=== PATIENT | female | born 1945 | race African-American/Black ===

== ENCOUNTER → 2017-02-09 | Day surgery (SDC) | payer OTHER ==
[~2017-02-09] MED LIST: ASPI325T8 PO; ATEN25TA PO; BUDE10.2 IH; CETI10TA16 PO; CLOP75TA PO; FERR-26 PO; FURO40TA4 PO; GABA-586 PO; HYDR-2762 PO; HYDROmorphone 2 MG/ML VIAL IV PRN; IV RINGERS,LACTATED 1000ML 1,000 ML IV SCH; LEVO100T5 PO; LIDOCAINE 1% PF 2 ML VIAL. ID PRN; LIDOCAINE 2% PF Vial for OR 5 ML VIAL. ONE; LOSA100T6 PO; LOSA25TA PO; MONT10TA6 PO; MORPHINE SULFATE 2 MG/ML DISP.SYRIN. IV PRN; ONDANSETRON PF 4 MG/2 ML VIAL. IV PRN; PROCHLORPERAZINE 10 MG/2 ML VIAL. IV PRN; PROPOFOL 20 ML IV ONE; SIMV40TA3 PO; fentaNYL PF VIAL 100 MCG/2 ML VIAL IV PRN
--- NOTE | 2017-02-09 10:53 | PDOC1 ---
HISTORY & PHYSICAL H&P Violet Levy [id number] 1945 02/07/2017 04:30 PM 04/23 Home [facility], [facility] OUR PATIENTS COME FIRST [address] [place] [address] Ph. [phone] Patient: Violet Levy Date of : 1945 Date: 02/07/2017 4:30 PM Visit Type: Office Visit This 72 year old female presents for Anemia and Blood in stool. History of Present Illness: 1. Anemia Additional information: Patient had low iron and low MCV. Had seen some blood in stool few months ago. Patient is on aspirin. 2. Blood in stool Additional information: Patient has seen some blood in stool few months ago. Had colonoscopy 2 yrs ago and had diverticulosis. Bowel prep was adequate. Patient is on Aspirin. INTAKE COMMENTS: Intake Comments: Nurse Note: the pt is here today due to anemia, the pt states that she did have blood in her stool for a few days, she states that it was quite a bit and it was bright red. 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 12/01/2014 Urinary tract infection, site unspecified 10/08/2015 Mild intermittent asthma without complication 01/21/2016 Benign hypertension with chronic kidney disease, stage II 11/12/2014 Chronic kidney disease, stage II (mild) 11/12/2014 Allergic conjunctivitis, bilateral 04/08/2015 Primary osteoarthritis involving multiple joints 10/08/2015 Gout 10/29/2014 Myocardial infarction, greater than 8 weeks old 12/01/2015 Osteoarthritis 07/30/2013 Arthralgia of knee, left 10/19/2015 Acute gout of right knee, unspecified cause 06/18/2015 Abnormal glucose level 09/16/2013 Bilateral primary osteoarthritis of knee 10/13/2015 Polyarthralgia 10/13/2015 Idiopathic chronic gout of multiple sites with tophus 10/13/2015 PAST MEDICAL/SURGICAL HISTORY (Detailed) Disease/disorder Onset Date Management Date Comments Anxiety Arthritis Asthma Coronary artery disease PCI with stent 07/2012 recent cardiac catheterization in July 2012 did not show any significant lesions. Hyperlipidemia Hypertension Hypothyroidism, primary DIAGNOSTICS HISTORY: Test Ordered Interpretation Result completed Stress Test 02/05/2007 EF 60%, normal LV systolic function 02/05/2007 EKG 01/09/2006 Normal 01/09/2006 PAP 12/06/2004 Normal Trichomonas 12/06/2004 Colonoscopy 01/07/2014 abnormal Imp: diverticulosis of the colon, transverse colon polyp(bx), BX: consistent with prominent fold 04/27/2014 Test Ordered Ordering Comments Modifier Stress Test 02/05/2007 Cardiac Studies EKG 01/09/2006 Cardiac Studies PAP 12/06/2004 Other Reports Colonoscopy 01/07/2014 Patient is postmenopausal. Type of menopause is natural . Medications (Active): Started Medication Directions Instruction Stopped 12/14/2010 aspirin 325 mg Tab take 1 tablet (325MG) by oral route every day 01/16/2017 ATENOLOL 25 MG TABLET TAKE 1 TABLET DAILY 01/16/2017 ATORVASTATIN 20 MG TABLET TAKE 1 TABLET BY MOUTH AT BEDTIME 01/29/2017 CETIRIZINE HCL 10 MG TABLET TAKE 1 TABLET BY MOUTH AT BEDTIME 10/10/2016 CLOPIDOGREL 75 MG TABLET TAKE 1 TABLET DAILY 06/13/2016 COLCRYS 0.6 MG TABLET TAKE 1 TABLET BY ORAL ROUTE 2 TIMES EVERY DAY 08/15/2016 Cozaar 25 mg tablet TAKE 1 TABLET DAILY 90 day pls 12/01/2015 Curcumin 95 % powder 500 mg twice a day 10/13/2016 cyanocobalamin (vit B-12) 1,000 mcg/mL injection solution inject 1 milliliter by intramuscular route 4 times every month call patient when ready 01/29/2017 ferrous sulfate 325 mg (65 mg iron) tablet take 1 tablet by ORAL route every day 09/27/2012 Flonase 50 mcg/actuation Nasal [place] spray 2 spray by intranasal route every day in each nostril 10/19/2016 GABAPENTIN 300 MG CAPSULE TAKE ONE CAPSULE BY MOUTH AT BEDTIME 01/03/2017 hydrocodone 7.5 mg-acetaminophen 325 mg tablet take 1 tablet by oral route every 6 hours as needed for pain 12/04/2016 LASIX 40 MG TABLET TAKE 1 TABLET (40MG) BY ORAL ROUTE EVERY DAY 02/05/2017 LEVOTHYROXINE 100 MCG TABLET TAKE 1 TABLET BY MOUTH EVERY DAY 12/04/2016 MONTELUKAST SOD 10 MG TABLET TAKE 1 TABLET BY MOUTH EVERY EVENING 01/29/2017 SYMBICORT 160-4.5 MCG INHALER INHALE 2 PUFFS TWICE A DAY , IN THE MORNING AND EVENING 10/29/2012 Tylenol Ex Str Arthritis Pain 500 mg tablet take 2 by Oral route in am and pm 09/21/2016 VITAMIN D3 2,000 UNIT TABLET TAKE 1 TABLET BY MOUTH EVERY DAY Allergies: Ingredient Reaction Medication Name Comment LISINOPRIL cough NO KNOWN DRUG ALLERGIES REVIEW OF SYSTEMS System Neg/Pos Details Constitutional Negative Chills, fever, malaise and weight loss. ENMT Negative Sore throat. Eyes Negative Double vision. Respiratory Negative Dyspnea and wheezing. Cardio Negative Chest pain and irregular heartbeat/palpitations. GI Positive See HPI. GI Negative See HPI. Negative Dysuria and hematuria. Endocrine Negative Cold intolerance and heat intolerance. Psych Negative Anxiety. Integumentary Negative Hives and rash. MS Negative Joint pain. Angelo/Lymph Negative Easy bleeding and easy bruising. Allergic/Immuno Negative Food allergies. Reproductive Positive The patient is post-menopausal (The menopause was natural) . VITAL SIGNS Time BP mm/Hg Pulse /min Resp /min Temp F Ht ft Ht in Ht cm Wt lb Wt kg BMI kg/ m2 BSA m2 O2 Sat% 4:28 PM 138/78 70 97.9 5.0 4.00 162.56 300.00 136.078 51.49 92 Time Measured by 4:28 PM Yojana Gaspar PHYSICAL EXAM: Exam Findings Details Constitutional Normal Well developed. Eyes Normal Conjunctiva - Right: Normal, Left: Normal. Sclera - Right: Normal, Left: Normal. Nasopharynx Normal Lips/teeth/gums - Normal. Neck Exam Normal Inspection - Normal. Thyroid gland - Normal. Respiratory Normal Inspection - Normal. Auscultation - Normal. Cardiovascular Normal Regular rate and rhythm. No murmurs, gallops, or rubs. Vascular Normal Pulses - Carotids: Normal, Femoral: Normal, Dorsalis pedis: Normal. Abdomen Normal Inspection - Normal. Anterior palpation - No guarding. No abdominal tenderness. No hepatic enlargement. No splenic enlargement. No hernia. No Ascites. Skin Normal Inspection - Normal. Extremity Normal No edema. Psychiatric Normal Oriented to time, place, person, and situation. Appropriate mood and effect. Assessment/Plan # Detail Type Description 1. Assessment Iron deficiency anemia due to chronic blood loss (D50.0). Patient Plan schedule EGD at [facility]. Plan Orders Further diagnostic evaluations ordered today include(s) EGD to be performed today. She is to schedule a follow-up visit with Sissy Oconnor MD upon completion of work-up Electronically signed by: Sissy Oconnor MD 02/07/2017 04:44 PM Document generated by: Sissy Oconnor 02/07/2017 04:44 PM Reynaldo Sadler MD, [facility]; Karan Vásquez MD Internal Medicine; Fernando Solitario MD, Internal Medicine; Michael Oconnor MD Internal Medicine; Sissy Oconnor MD, Gastroenterology; Kraig Anderson MD, Rheumatology, S. Eric Morrell, Physical Medicine/Rehab J. Chacho HAYN ------ 02/09/17 Patient seen and examined. No change in H&P. SISSY OCONNOR MD Feb 09, 2017 10:53
[2017-02-09 12:52] VITALS: BP 134/68
== END | disposition home or self-care (01) ==
LOC: ENDOS 10:10
PROVIDERS: ATTEND Internal Medicine Gastroenterology
DX: D50.0 Iron deficiency anemia secondary to blood loss (chronic) (principal); I25.10 Atherosclerotic heart disease of native coronary artery without angina pectoris; I10 Essential (primary) hypertension; J45.909 Unspecified asthma, uncomplicated; I12.9 Hypertensive chronic kidney disease with stage 1 through stage 4 chronic kidney disease, or unspecified chronic kidney disease; N18.9 Chronic kidney disease, unspecified; E03.9 Hypothyroidism, unspecified; F41.9 Anxiety disorder, unspecified; F17.200 Nicotine dependence, unspecified, uncomplicated; Z98.890 Other specified postprocedural states; Z98.51 Tubal ligation status; Z87.39 Personal history of other diseases of the musculoskeletal system and connective tissue; Z87.440 Personal history of urinary (tract) infections
CPT/HCPCS: 43235; J2704; J2001

== ENCOUNTER → 2017-08-17 | Outpatient (CLI) | payer OTHER | END | disposition home or self-care (01) | LOC: KCIC DEXA 09:28 | DX: Z12.31 Encounter for screening mammogram for malignant neoplasm of breast (principal); M81.0 Age-related osteoporosis without current pathological fracture; M85.80 Other specified disorders of bone density and structure, unspecified site; Z78.0 Asymptomatic menopausal state | CPT/HCPCS: 77067; 77080 ==

== ENCOUNTER 2017-09-14 15:12 | Emergency (ER) | payer OTHER ==
[2017-09-14 15:56] LABS: BILIRUBIN,URINE SMALL (NEG); CLARITY,URINE CLOUDY; COLOR,URINE AMBER; GLUCOSE,URINE NEGATIVE (NEG); NITRITE,URINE NEGATIVE (NEG); PROTEIN,URINE NEGATIVE (NEG-TRACE)
[2017-09-14 16:23] LABS: BACTERIA,URINE MOD /HPF (0-FEW); HYALINE CASTS, URINE MODERATE /HPF; SQUAMOUS EPITHELIAL CELL,UR MANY /LPF
== END 2017-09-14 18:27 | disposition home or self-care (01) ==
LOC: ER 18:27
DX: S42.401A Unspecified fracture of lower end of right humerus, initial encounter for closed fracture (principal); N39.0 Urinary tract infection, site not specified; W06.XXXA Fall from bed, initial encounter; Y93.89 Activity, other specified; Y92.89 Other specified places as the place of occurrence of the external cause; Y99.8 Other external cause status
CPT/HCPCS: 73080; 73090; 73110; 81001; 99285-25

== ENCOUNTER → 2017-09-14 | Outpatient (CLI) | payer OTHER | END | disposition home or self-care (01) | LOC: ECHO 14:17 | DX: I31.3 Pericardial effusion (noninflammatory) (principal); R53.1 Weakness; R53.83 Other fatigue | CPT/HCPCS: 93306 ==

== ENCOUNTER → 2018-10-15 | Outpatient (CLI) | payer OTHER ==
[2018-01-29 14:43] VITALS: BP 120/57
[~2018-10-15] MED LIST changes: +ACET500T68 PO; +ATOR20TA58 PO; +CHOL10003 PO; +COLC0.6T34 PO; -FERR-26 PO; +FERR325T14 PO; -GABA-586 PO; +GABA300C18 PO; -HYDR-2762 PO; +HYDR-2765 PO; +HYDR-3164 PO; -HYDROmorphone 2 MG/ML VIAL IV PRN; -IV RINGERS,LACTATED 1000ML 1,000 ML IV SCH; +LEVO125T5 PO; -LIDOCAINE 1% PF 2 ML VIAL. ID PRN; -LIDOCAINE 2% PF Vial for OR 5 ML VIAL. ONE; +LOSA100T14 PO; -LOSA100T6 PO; +MONT10TA49 PO; -MONT10TA6 PO; -MORPHINE SULFATE 2 MG/ML DISP.SYRIN. IV PRN; +NITR100C62 PO; -ONDANSETRON PF 4 MG/2 ML VIAL. IV PRN; -PROCHLORPERAZINE 10 MG/2 ML VIAL. IV PRN; -PROPOFOL 20 ML IV ONE; -fentaNYL PF VIAL 100 MCG/2 ML VIAL IV PRN
--- NOTE | 2018-10-15 11:52 | CARD ---
MR#: [id number] Date of Study: 10/15/2018 Ordering Physician: SHASHANK UNGER, Referring Physician: SHASHANK UNGER Tech: Starr Soria NABILA APPROVED REPORT EXAM: Two-dimensional and M-mode echocardiogram with Doppler and color Doppler. Other Information Quality : Technically LimitedHR: 85bpm Rhythm : NSRTechnically limited study due to body habitus. INDICATION CAD 2D DIMENSIONS RVDd3.4 (2.9-3.5cm)Left Atrium(2D)3.1 (1.6-4.0cm) IVSd1.2 (0.7-1.1cm)Aortic Root(2D)3.1 (2.0-3.7cm) LVDd5.1 (3.9-5.9cm)LVOT Diameter2.2 (1.8-2.4cm) PWd1.0 (0.7-1.1cm)LVDs3.5 (2.5-4.0cm) FS (%) 30.9 %SV73.1 ml Aortic Valve AoV Peak Lucius.167.8cm/sAoV VTI25.9cm AO Peak GR.11.3mmHgLVOT Peak Lucius.117.9cm/s AO Mean GR.5mmHgAVA (VMAX)2.67cm2 NANCI (VTI)2.70cm2 Mitral Valve MV E Sxnkwshv93.0cm/sMV E Peak Gr.6mmHg MV DECEL [id number] A Ynadrixk175.8cm/s MV E Mean Gr.3mmHgE/A Ratio0.5 LEFT VENTRICLE The left ventricle is normal size. Proximal septal thickening is noted. Left ventricle systolic funct ion is mildly decreased. The Ejection Fraction is estimated at 50%. There is severe hypokinesis in th e apical septal wall. Transmitral Doppler flow pattern is Grade I-abnormal relaxation pattern. RIGHT VENTRICLE The right ventricle is normal size. There is normal right ventricular wall thickness. The right ventr icular systolic function is normal. ATRIA The left atrium size is normal. The right atrium size is normal. The interatrial septum is intact wit h no evidence for an atrial septal defect or patent foramen ovale as noted on 2-D or Doppler imaging. AORTIC VALVE The aortic valve is trileaflet. The left coronary cusp is calcified. Doppler and Color Flow revealed no significant aortic regurgitation. There is no significant aortic valvular stenosis. MITRAL VALVE The mitral valve is normal in structure and function. There is no evidence of mitral valve prolapse. There is no mitral valve stenosis. Doppler and Color Flow revealed trace mitral valve regurgitation. TRICUSPID VALVE The tricuspid valve is normal in structure and function. Doppler and Color Flow revealed trace tricus pid valve regurgitation. There is no tricuspid valve prolapse or vegetation. There is no tricuspid va lve stenosis. PULMONIC VALVE The pulmonic valve is not well visualized. GREAT VESSELS The aortic root is normal in size. The ascending aorta is normal in size. The IVC is normal in size a nd collapses >50% with inspiration. PERICARDIAL EFFUSION There is no evidence of significant pericardial effusion. Critical Notification Critical Value: No <Conclusion> The left ventricle is normal size. Left ventricle systolic function is mildly decreased. The Ejection Fraction is estimated at 50%. There is severe hypokinesis in the apical septal wall. There is no significant aortic valvular stenosis. Doppler and Color Flow revealed no significant aortic regurgitation. Doppler and Color Flow revealed trace mitral valve regurgitation. Doppler and Color Flow revealed trace tricuspid valve regurgitation. Signed by : Kong Torres MD Electronically Approved : 10/15/2018 11:52:15
== END | disposition home or self-care (01) ==
LOC: ECHO 10:40
PROVIDERS: ATTEND Internal Medicine Cardiovascular Disease
DX: I25.10 Atherosclerotic heart disease of native coronary artery without angina pectoris (principal); I70.0 Atherosclerosis of aorta
CPT/HCPCS: 93306

== ENCOUNTER → 2019-04-01 | Outpatient (CLI) | payer OTHER ==
[2018-01-29 14:43] VITALS: BP 120/57
[~2019-04-01] MED LIST changes: +SIMV40TA18 PO; -SIMV40TA3 PO
--- NOTE | 2019-04-02 15:04 | RAD ---
3 views of the bilateral hands without comparison for polyarthralgia. FINDINGS: On the left, there are arthritic changes seen in the proximal and distal interphalangeal joint of the first and second digits and the distal phalangeal joint of third digit, with some punched-out periarticular lesions and no significant associated osteopenia. Lateral projection suggests some early pencil in cup deformity. There is relative sparing of the metacarpophalangeal joints, though there is some involvement in the first and second MCPs. Some degenerative changes are seen amongst the intercarpal and carpometacarpal joint. On the right, findings are somewhat similar but to a notably lesser degree with predominant involvement in the first metacarpal phalangeal and interphalangeal joint as well as the second metacarpal phalangeal joint. Once again, there is no significant just articular osteopenia. No fracture or acute osseous abnormality is seen in any distribution. IMPRESSION: 1. Polyarticular arthritis, with an imaging appearance most suggestive of an inflammatory etiology such as psoriatic disease. Erosive osteoarthritis is also a consideration, as is atypical rheumatoid arthritis or other inflammatory process. Electronically signed by: Emmanuel Robertson MD (04/02/2019 3:01 PM) [facility]
== END | disposition home or self-care (01) ==
LOC: RAD 11:43
PROVIDERS: ATTEND Internal Medicine Rheumatology
DX: M19.042 Primary osteoarthritis, left hand (principal); M19.041 Primary osteoarthritis, right hand
CPT/HCPCS: 73130

== ENCOUNTER → 2020-02-26 | Outpatient (CLI) | payer OTHER ==
[2018-01-29 14:43] VITALS: BP 120/57
--- NOTE | 2020-02-26 10:27 | RAD ---
EXAM: Carotid Doppler sonogram. HISTORY: Atherosclerosis. Carotid stenosis. TECHNIQUE: Matute scale and color Doppler sonographic evaluation of the neck with spectral waveform analysis was performed and static images are submitted for review. FINDINGS: The peak systolic velocity within the right common carotid artery is 70 cm/sec. The peak systolic velocity within the right internal carotid artery is 69 cm/sec and the end diastolic velocity within the right internal carotid artery is 30 cm/sec. The right ICA/CCA ratio is 1.0. The peak systolic velocity within the left common carotid artery is 84 cm/sec. The peak systolic velocity within the left internal carotid artery is 93 cm/sec and the end diastolic velocity within the left internal carotid artery is 31 cm/sec. The left ICA/CCA ratio is 1.1. There is normal antegrade flow within both vertebral arteries. IMPRESSION: No Doppler evidence of greater than 50 percent stenosis involving the internal carotid arteries. PQRS Compliance Statement - Stenosis calculations for CT, MR and conventional angiography are based upon measurement of the distal ICA diameter in accordance with the NASCET methodology. Stenosis calculations for carotid ultrasound studies are derived from validated velocity criteria which are known to correlate with the NASCET methodology. Electronically signed by: Shaista Zavala MD (02/26/2020 10:24 AM) [id number]
--- NOTE | 2020-02-26 16:06 | CARD ---
MR#: [id number] Date of Study: 02/26/2020 Ordering Physician: SHASHANK UNGER, Referring Physician: SHASHANK UNGER Tech: Shanae Gupta RDCS APPROVED REPORT EXAM: Two-dimensional and M-mode echocardiogram with Doppler and color Doppler. Other Information Quality : Technically Limited Technically limited study due to obesity and lung disease INDICATION Cardiac Disease: CAD 2D DIMENSIONS Left Atrium(2D)4.2 (1.6-4.0cm)IVSd0.9 (0.7-1.1cm) Aortic Root(2D)2.5 (2.0-3.7cm)LVDd4.0 (3.9-5.9cm) LVOT Diameter2.0 (1.8-2.4cm)PWd1.0 (0.7-1.1cm) LVDs2.2 (2.5-4.0cm)FS (%) 30.0 % SV52.8 ml Aortic Valve AoV Peak Lucius.105.7cm/sAoV VTI21.4cm AO Peak GR.4.5mmHgLVOT Peak Lucius.62.9cm/s AO Mean GR.3mmHgAVA (VMAX)1.89cm2 NANCI (VTI)2.20cm2 Mitral Valve MV E Kypbdajf53.3cm/sMV DECEL [id number] MV A Ikrukrui581.8cm/sE/A Ratio0.6 LEFT VENTRICLE The left ventricle is normal size. There is normal left ventricular wall thickness. The Ejection Frac tion is 40-45%. There is akinesis in the apical septal and apex. The left ventricular apex is also mi ldly aneurysmal. Transmitral Doppler flow pattern is Grade I-abnormal relaxation pattern. RIGHT VENTRICLE The right ventricle is normal size. The right ventricular systolic function is normal. ATRIA The left atrium is mildly dilated. The right atrium size is normal. The interatrial septum is intact with no evidence for an atrial septal defect or patent foramen ovale as noted on 2-D or Doppler imagi ng. AORTIC VALVE The aortic valve is calcified but opens well. Doppler and Color Flow revealed no significant aortic r egurgitation. There is no significant aortic valvular stenosis. MITRAL VALVE The mitral valve is calcified but opens well. There is no evidence of mitral valve prolapse. There is no mitral valve stenosis. Doppler and Color Flow revealed trace mitral valve regurgitation. TRICUSPID VALVE The tricuspid valve is normal in structure and function. Doppler and Color Flow revealed no tricuspid valve regurgitation noted. There is no tricuspid valve stenosis. PULMONIC VALVE The pulmonic valve is not well visualized. Doppler and Color Flow revealed mild pulmonic valvular reg urgitation. There is no pulmonic valvular stenosis. GREAT VESSELS The aortic root is normal in size. The ascending aorta is not well seen. The IVC was not visualized. PERICARDIAL EFFUSION There is no evidence of significant pericardial effusion. Critical Notification Critical Value: No <Conclusion> The left ventricle is normal size on a technically difficult study. The Ejection Fraction is 40-45%. There is akinesis in the apical septal and apex. The left ventricular apex is also mildly aneurysmal . Doppler and Color Flow revealed no significant aortic regurgitation. There is no significant aortic valvular stenosis. Doppler and Color Flow revealed trace mitral valve regurgitation. Doppler and Color Flow revealed no tricuspid valve regurgitation noted. Doppler and Color Flow revealed mild pulmonic valvular regurgitation. Signed by : Kong Torres MD Electronically Approved : 02/26/2020 16:06:11
== END ==
LOC: ECHO 08:33
PROVIDERS: ATTEND Internal Medicine Cardiovascular Disease
DX: I08.8 Other rheumatic multiple valve diseases (principal); I65.23 Occlusion and stenosis of bilateral carotid arteries
CPT/HCPCS: 93306; 93880

== ENCOUNTER → 2020-10-18 | Outpatient (CLI) | payer OTHER ==
[2020-07-12 11:00] VITALS: BP 110/68
[~2020-10-18] MED LIST changes: +CYCL5TAB PO; +DICL100G24 TP; +HEPA50003 SQ; +HYDR200T5 PO; +LEVO88TA4 PO; +NAPR-695 PO
--- NOTE | 2020-10-18 13:45 | KCIC ---
EXAM: Bilateral knees, standing view. HISTORY: Pain. COMPARISON: None. FINDINGS: A standing view both knees is obtained. There is severe bilateral medial compartment joint space narrowing with subchondral sclerosis, subchondral cyst formation, spurring and bony remodeling. There is mild bilateral lateral compartment spurring. There is bilateral genu varus. IMPRESSION: Severe medial compartment and mild lateral compartment osteoarthritis of both knees with medial compartment bony remodeling and genu varus. Electronically signed by: Shaista Zavala MD (10/18/2020 1:43 PM) [id number]
== END ==
LOC: KCIC 13:07
PROVIDERS: ATTEND Physical Medicine & Rehabilitation
DX: M17.0 Bilateral primary osteoarthritis of knee (principal); M21.162 Varus deformity, not elsewhere classified, left knee; M21.161 Varus deformity, not elsewhere classified, right knee; M25.862 Other specified joint disorders, left knee; M25.861 Other specified joint disorders, right knee; M76.892 Other specified enthesopathies of left lower limb, excluding foot; M76.891 Other specified enthesopathies of right lower limb, excluding foot
CPT/HCPCS: 73565

== ENCOUNTER → 2021-02-22 | Outpatient (CLI) | payer OTHER ==
[2020-12-03 11:00] VITALS: BP 104/59
[~2021-02-22] MED LIST changes: +ACET325T21 PO; +ASPI-630 PO; +PANT40TA77 PO; +PRED20TA PO; +SENN-189 PO
--- NOTE | 2021-02-22 13:07 | CARD ---
MR#: [id number] Date of Study: 02/22/2021 Ordering Physician: SHASHANK UNGER, Referring Physician: SHASHANK UNGER Tech: Radha Shelby NABILA APPROVED REPORT EXAM: Two-dimensional and M-mode echocardiogram with Doppler and color Doppler. Other Information Quality : Technically LimitedHR: 100bpm Rhythm : NSR INDICATION Cardiac Disease: CAD Chest Pain RISK FACTORS Hypertension Obesity Hyperlipidemia Diabetes 2D DIMENSIONS Left Atrium(2D)3.4 (1.6-4.0cm)IVSd1.1 (0.7-1.1cm) Aortic Root(2D)3.1 (2.0-3.7cm)LVDd4.8 (3.9-5.9cm) LVOT Diameter2.5 (1.8-2.4cm)PWd1.0 (0.7-1.1cm) IVSs1.6 (0.8-1.2cm)LVDs3.1 (2.5-4.0cm) FS (%) 35.8 %PWs1.6 (0.8-1.2cm) SV69.0 mlLVEF(%)65.2 (>50%) Aortic Valve AoV Peak Lucius.144.2cm/Abdi Peak GR.8.3mmHg Pulmonary Valve PV Peak Bvymlajh880.0cm/sPV Peak Grad.5mmHg LEFT VENTRICLE The left ventricle is normal size. There is borderline concentric left ventricular hypertrophy. Apica l wall appears to be akinetic. The ejection fraction is estimated at 40-45%. Transmitral Doppler flow pattern is Grade I-abnormal relaxation pattern. RIGHT VENTRICLE The right ventricle is normal size. There is normal right ventricular wall thickness. The right ventr icular systolic function is normal. ATRIA The left atrium size is normal. The right atrium size is normal. The interatrial septum is intact wit h no evidence for an atrial septal defect or patent foramen ovale as noted on 2-D or Doppler imaging. AORTIC VALVE The aortic valve is normal in structure and function. Doppler and Color Flow revealed no significant aortic regurgitation. There is no significant aortic valvular stenosis. MITRAL VALVE The mitral valve is normal in structure and function. There is no evidence of mitral valve prolapse. There is no mitral valve stenosis. Doppler and Color Flow revealed no mitral valve regurgitation note d. TRICUSPID VALVE The tricuspid valve is normal in structure and function. Doppler and Color Flow revealed no tricuspid valve regurgitation noted. There is no tricuspid valve stenosis. GREAT VESSELS The aortic root is normal in size. The ascending aorta is normal in size. Not visualized. PERICARDIAL EFFUSION There is no evidence of significant pericardial effusion. Critical Notification Critical Value: No <Conclusion> Technically very difficult study. Apical wall appears to be akinetic. The ejection fraction is estimated at 40-45%. There is no evidence of significant pericardial effusion. Signed by : Shashank Unger, Electronically Approved : 02/22/2021 13:06:34
== END ==
LOC: ECHO 10:30
PROVIDERS: ATTEND Internal Medicine Cardiovascular Disease
DX: I25.10 Atherosclerotic heart disease of native coronary artery without angina pectoris (principal); R07.9 Chest pain, unspecified
CPT/HCPCS: 93306

== ENCOUNTER → 2021-04-06 | Outpatient (CLI) | payer OTHER ==
[2020-12-03 11:00] VITALS: BP 104/59
--- NOTE | 2021-04-06 11:32 | RAD ---
EXAMINATION: CT LEFT LOWER EXTREMITY WITHOUT IV CONTRAST CLINICAL HISTORY: Left knee osteoarthritis, preoperative planning TECHNIQUE: Noncontrast serial axial images obtained through the bilateral hips, knees, and ankles wit h coronal reconstructions through the bilateral knees and sagittal reconstructions through the left k nee for preoperative planning. CT Dose Reduction Employed: One or more of the following individualized dose reduction techniques wer e utilized for this examination: 1. Automated exposure control 2. Adjustment of the mA and/or kV ac cording to patient size 3. Use of iterative reconstruction technique. COMPARISON: None FINDINGS: Advanced tricompartmental degenerative changes bilateral knees, greatest in the medial compartments. No acute fracture. Bilateral small joint effusions with calcified joint bodies. Bilateral hips within normal limits. Ppfkovmp-[id number] degenerative changes bilateral ankles, incomp letely evaluated. No acute fracture. IMPRESSION: Advanced tricompartmental degenerative changes left knee. No acute fracture or unexpected findings. Additional degenerative changes as described. Electronically signed by: Faisal Nieves DO (04/06/2021 11:30 AM) [place]
== END ==
LOC: CT 08:51
PROVIDERS: ATTEND Orthopaedic Surgery
DX: M17.0 Bilateral primary osteoarthritis of knee (principal); M25.462 Effusion, left knee
CPT/HCPCS: 73700

== ENCOUNTER → 2021-05-23 | Outpatient (CLI) | payer OTHER ==
[2020-12-03 11:00] VITALS: BP 104/59
[2021-05-23 09:41] LABS: ALBUMIN 3.7 g/dL (3.4-5.0); CALCIUM 8.4 mg/dL (8.5-10.1); CREATININE 2.4 mg/dL (0.6-1.0); GFR 23.7
[2021-05-23 10:25] LABS: BASO # 0.1 x10^3/uL (0.0-0.2); BASO % 1 % (0-3); EOS # 0.2 x10^3/uL (0.0-0.7); EOS % 4 % (0-3); HEMATOCRIT 41.3 % (36.0-47.0); HEMOGLOBIN 13.3 g/dL (12.0-15.5); LYMPH # 2.6 x10^3/uL (1.0-4.8); LYMPH % 38 % (24-48); MEAN CORPUSCULAR HEMOGLOBIN 29 pg (25-35); MEAN CORPUSCULAR HGB CONC 32 g/dL (31-37); MEAN CORPUSCULAR VOLUME 90 fL (79-100); MONO # 0.3 x10^3/uL (0.0-1.1); MONO % 5 % (0-9); NEUT # 3.6 x10^3/uL (1.8-7.7); NEUT % 53 % (31-73); PLATELET COUNT 148 x10^3/uL (140-400); RED BLOOD COUNT 4.59 x10^6/uL (3.50-5.40); RED CELL DISTRIBUTION WIDTH 16.6 % (11.5-14.5); WHITE BLOOD COUNT 6.8 x10^3/uL (4.0-11.0)
[2021-05-23 10:46] LABS: PROTHROMBIN TIME PATIENT 12.2 SEC (11.7-14.0)
--- NOTE | 2021-05-23 13:04 | EKG ---
[facility] [address] [place] [address] Test Date: 2021-05-23 Test Time: 12:27:22 Pat Name: JON HERRERA Department: Room: Gender: F Insulation Cupola Charger: KELSY : 1945 Requested By: SULLY LÓPEZ Order Number: [id number] Reading MD: Kong Torres Measurements Intervals Alfred Rate: 62 P: 47 VA: 182 QRS: -48 QRSD: 122 T: 0 QT: 480 QTc: 490 Interpretive Statements SINUS RHYTHM LEFT ATRIAL ABNORMALITY ABNORMAL LEFT AXIS DEVIATION NON SPECIFIC ST-T WAVE CHANGES BORDERLINE INFERIOR Q WAVE Electronically Signed On 05-24-2021 9:12:13 [employer] PROFESSOR by Kong Torres
[2021-05-24 03:09] LABS: HEMOGLOBIN A1C 6.1 % (4.8-5.6)
== END ==
LOC: SURGPAT 12:33
PROVIDERS: ATTEND Orthopaedic Surgery
DX: Z01.818 Encounter for other preprocedural examination (principal); R94.31 Abnormal electrocardiogram [ECG] [EKG]; I10 Essential (primary) hypertension; M17.12 Unilateral primary osteoarthritis, left knee
CPT/HCPCS: 36415; 80048; 82040; 82306; 83036; 85025; 85610; 85651; 85730; 87641; 93005

== ENCOUNTER → 2021-06-01 | Outpatient (CLI) | payer OTHER ==
[2020-12-03 11:00] VITALS: BP 104/59
--- NOTE | 2021-06-01 09:28 | RAD ---
EXAM: Renal sonogram. HISTORY: Chronic renal disease. TECHNIQUE: Sonographic imaging of the kidneys and bladder was performed. COMPARISON: None. FINDINGS: The exam is limited due to patient body habitus. The kidneys are not well seen. The kidneys are normal in size. There are multiple simple appearing right renal cysts, the largest of which maureen ures 3.4 cm. There is no hydronephrosis. The bladder is unremarkable. IMPRESSION: 1. Multiple simple appearing right renal cysts. Follow-up is not routinely performed for simple cysts . 2. Limited exam due to body habitus. Electronically signed by: Shaista Zavala MD (06/01/2021 9:26 AM) [id number]
== END ==
LOC: US 08:39
PROVIDERS: ATTEND Internal Medicine
DX: N28.1 Cyst of kidney, acquired (principal); N18.4 Chronic kidney disease, stage 4 (severe)
CPT/HCPCS: 76770

== ENCOUNTER → 2021-07-22 | Outpatient (CLI) | payer OTHER ==
[2020-12-03 11:00] VITALS: BP 104/59
[~2021-07-22] MED LIST changes: +LEVO175T5 PO; +MULT1TAB92 PO
[2021-07-22 13:56] LABS: BASO % 1 % (0-3); EOS # 0.2 x10^3/uL (0.0-0.7); EOS % 3 % (0-3); HEMATOCRIT 37.3 % (36.0-47.0); LYMPH # 1.2 x10^3/uL (1.0-4.8); LYMPH % 16 % (24-48); MEAN CORPUSCULAR HEMOGLOBIN 30 pg (25-35); MEAN CORPUSCULAR HGB CONC 32 g/dL (31-37); MEAN CORPUSCULAR VOLUME 95 fL (79-100); MONO # 0.5 x10^3/uL (0.0-1.1); MONO % 7 % (0-9); NEUT # 5.3 x10^3/uL (1.8-7.7); NEUT % 73 % (31-73); PLATELET COUNT 204 x10^3/uL (140-400); RED BLOOD COUNT 3.94 x10^6/uL (3.50-5.40); WHITE BLOOD COUNT 7.2 x10^3/uL (4.0-11.0)
== END ==
LOC: SURGPAT 13:16
PROVIDERS: ATTEND Orthopaedic Surgery
DX: Z01.818 Encounter for other preprocedural examination (principal); M17.0 Bilateral primary osteoarthritis of knee
CPT/HCPCS: 36415; 82306; 85025; 85610; 85651; 85730; 87641

== ENCOUNTER 2021-07-27 05:54 | Observation (INO) | payer OTHER ==
[2021-07-22 13:50] VITALS: BP 172/72
[2021-07-27] VITALS (10 sets, daily range): BP systolic 110–168; BP diastolic 57–85
[~2021-07-27] VITALS: Ht 160 cm; Wt 90.7 kg
[~2021-07-27 05:54] MED LIST changes: -LEVO175T5 PO; -MULT1TAB92 PO
[2021-07-27] MEDS ORDERED: PROCHLORPERAZINE 10 MG/2 ML VIAL. IVP PRN (06:00)
[2021-07-27] MEDS ORDERED: ACETAMINOPHEN 500 MG TABLET PO PRN (06:00)
[2021-07-27] MEDS ORDERED: MORPHINE SULFATE 2 MG/ML INJ. IVP PRN ×2 (06:00→09:30)
[2021-07-27] MEDS ORDERED: TRANEXAMIC ACID 1,000 MG in IV NS 50ML -- 1ST BAG INJ ONE (06:00)
[2021-07-27] MEDS ORDERED: GABAPENTIN 300 MG CAPSULE. PO PRN (06:00)
[2021-07-27] MEDS ORDERED: fentaNYL PF VIAL 100 MCG/2 ML VIAL IVP PRN ×2 (06:00→09:30)
[2021-07-27] MEDS ORDERED: TV=62ml MORPHINE 5 MG, KETOROLAC 30 MG, ROPIV, EPI INT ART ONE (06:00)
[2021-07-27] MEDS ORDERED: HYDROmorphone 2 MG/ML INJ. IVP PRN (06:00)
[2021-07-27] MEDS ORDERED: IV RINGERS,LACTATED 1000ML 1,000 ML IV SCH (06:00)
[2021-07-27] MEDS ORDERED: LEVO175T5 PO (06:45)
[2021-07-27] MEDS ORDERED: COLC0.6T34 PO (06:46)
[2021-07-27] MEDS ORDERED: DEXAMETHASONE SOD PHOS 4 MG/ML VIAL ONE (06:50)
[2021-07-27] MEDS ORDERED: fentaNYL PF VIAL 100 MCG/2 ML VIAL ONE ×2 (06:50→09:49)
[2021-07-27] MEDS ORDERED: NEOSTIGMINE METHYLSULFATE 5 MG/5 ML SYRINGE. ONE (06:50)
[2021-07-27] MEDS ORDERED: PROPOFOL 10 MG/ML (20ML) VIAL. IV ONE (06:50)
[2021-07-27] MEDS ORDERED: ROCURONIUM 50 MG/5 ML VIAL. ONE (06:50)
[2021-07-27] MEDS ORDERED: LIDOCAINE 2% PF 5 ML VIAL. ONE (06:50)
[2021-07-27] MEDS ORDERED: SUCCINYLCHOLINE 200 MG/10 ML VIAL. ONE (06:50)
[2021-07-27] MEDS ORDERED: ONDANSETRON PF 4 MG/2 ML VIAL. ONE (06:50)
[2021-07-27] MEDS ORDERED: MIDAZOLAM HCL/PF 2 MG/2 ML VIAL. ONE (06:51)
[2021-07-27] MEDS ORDERED: GLYCOPYRROLATE 1 MG/5 ML VIAL. ONE (06:51)
[2021-07-27] MEDS ORDERED: TRANEXAMIC ACID in NS IVPB 100 ML ONE (06:57)
[2021-07-27] MEDS: CETIRIZINE HCL 10 MG TABLET. PO SCH (07:00)
[2021-07-27] MEDS ORDERED: DEXMEDETOMIDINE 200 MCG/2 ML VIAL. ONE (07:14)
[2021-07-27] MEDS ORDERED: TRANEXAMIC ACID 1,000 MG in IV NS 50ML -- 2ND BAG INJ ONE (08:00)
--- NOTE | 2021-07-27 09:16 | PDOC4 ---
OPERATIVE NOTE Date: Date: Jul 27, 2021 Pre-Op Diagnosis: Degenerative joint disease left knee Post-Op Diagnosis: Same Procedure Performed: Left total knee arthroplasty Surgeon: Milvia Anesthesia Type: General Blood Loss: 75 cc Specimans Obtained: Bone and soft tissue left knee Findings: Conformers medial 6 tibial insert lateral AT tibial insert 32 patella Complications: None SULLY LÓPEZ Jr. DO Jul 27, 2021 09:16
--- NOTE | 2021-07-27 09:21 | PDOC4 ---
Operative Note Operative Note Standard dictation for conformance left total knee arthroplasty medial 6 tibial insert lateral 8 tibial insert 32 patella SULLY LÓPEZ Jr. DO Jul 27, 2021 09:21
[2021-07-27] MEDS ORDERED: 0.9 % SODIUM CHLORIDE 10 ML DISP.SYRIN. IV PRN (09:30)
[2021-07-27] MEDS ORDERED: diphenhydrAMINE 50 MG/ML VIAL IVP PRN (09:30)
[2021-07-27] MEDS ORDERED: DEXTROSE 50% 25 GM / 50ML DISP.SYRIN. IV PRN (09:30)
[2021-07-27] MEDS ORDERED: IV DEXTROSE 5% 250 ML BAG. IV PRN (09:30)
[2021-07-27] MEDS ORDERED: METOCLOPRAMIDE HCL 10 MG/2 ML VIAL. IVP PRN (09:30)
[2021-07-27] MEDS ORDERED: PROCHLORPERAZINE 5 MG TABLET. PO PRN (09:30)
[2021-07-27] MEDS ORDERED: CALCIUM CARBONATE 500 MG TAB.CHEW PO PRN (09:30)
[2021-07-27] MEDS ORDERED: ZOLPIDEM 5 MG TABLET. PO PRN (09:30)
[2021-07-27] MEDS: IV NORMAL SALINE 1000ML BAG 1,000 ML IV SCH (09:54)
[2021-07-27] MEDS: fentaNYL PF VIAL 100 MCG/2 ML VIAL IVP PRN ×2 (09:54→10:05)
--- NOTE | 2021-07-27 10:55 | RAD ---
EXAMINATION: XR KNEE_LT 1-2 VIEWS CLINICAL HISTORY: Postoperative evaluation status post left total knee arthroplasty. TECHNIQUE: XR KNEE_LT 1-2 VIEWS Number of Images/Views: 2 COMPARISON: 01/17/2021 FINDINGS: Status post interval left total knee arthroplasty with patellar resurfacing. Prostheses in satisfacto ry alignment with no evidence of acute hardware complication. No acute fracture. Expected postsurgica l changes in the surrounding soft tissues including mild soft tissue and intra-articular air. IMPRESSION: Normal postoperative findings status post interval left total knee arthroplasty. Electronically signed by: Faisal Nieves DO (07/27/2021 10:53 AM) [id number]
[2021-07-27] MEDS: oxyCODONE IR 5 MG TABLET PO PRN ×2 (11:13→16:47)
[2021-07-27] MEDS: ONDANSETRON PF 4 MG/2 ML VIAL. IVP SCH ×3 (12:00→23:24)
[2021-07-27] MEDS: ONDANSETRON ODT 4 MG TAB.RAPDIS. PO SCH ×3 (12:00→23:25)
--- NOTE | 2021-07-27 14:46 | OP ---
DATE OF SURGERY: 07/27/2021 PREOPERATIVE DIAGNOSIS: Severe degenerative joint disease, left knee. POSTOPERATIVE DIAGNOSIS: Severe degenerative joint disease, left knee. PROCEDURE: Left total knee arthroplasty. SURGEON: Mandeep Steel Jr, DO PRODUCTION CONTROL PEGBOARD CLERK: Mike Galvez. ESTIMATED BLOOD LOSS: 75 mL. COMPLICATIONS: None. ANESTHESIA: Spinal with IV sedation. COMPONENTS: ConforMIS left total knee replacement with a lateral A tibial insert and a medial 6 tibial insert and a 32 patella. DESCRIPTION OF PROCEDURE: The patient was taken to the operative suite, given a spinal anesthetic. Left lower extremity was then prepped and draped in a sterile fashion. Incision was made through skin and subcutaneous tissues down to the extensor mechanism. Superficial bleeding was coagulated using a Bovie knife. After that, the medial parapatellar incision was made. Patella was everted. There were severe changes noted in the patellofemoral compartment. Therefore, the size of this patella was measured. This was cut in the appropriate fashion and then a 32 was noted to be the most appropriate size for the patella; therefore, the guide was placed and the drill holes were made through the guide. This was protected as the knee was taken into a flexed position. There were noted to be severe changes to the medial compartment, moderate changes to the lateral compartment. In any manner, the medial and lateral meniscal remnants were removed as well as the ACL, PCL remained intact and the F1 guide was then placed on the femur and drilled. Chondral surface was removed. The appropriate sites and then the F2 guide was placed, held in appropriate position. The drill pins were placed on the distal femur and then they were also on the anterior femur to hold this into position. The distal pins were then removed. The remainder of the guide was noted to be intact and in good position. Following this, the distal cut was made. This was noted to be a good flush cut. This was all removed and the next guide was then placed through using the pin holes distally. This was flushed on the femur with proper rotation and orientation noted. Therefore, this was pinned in appropriate position. The anterior, posterior and one of the chamfer cuts were made as well as the plugs, those were drilled. This guide was then removed and the final guide was placed on the femur. The final chamfer cuts were then made. These were noted to be a good flush cuts. The trial fit perfectly. This was then removed and following this, the external tibial guide was placed on the tibia with medial, lateral and posterior retractors placed. Proximal tibia was then cut to the appropriate position and an extra 2 mm was taken due to the fact this was a minimal resection at this point. The trials were then placed, taken through range of motion. There was excellent tracking of the patellofemoral joint and excellent stability throughout the arc of motion. These trials were then marked on the tibial side. This was held with pins and the drill and the keel were placed at the appropriate depth for rotation. All trial components were then removed. The Werewolf was then used to coagulate posterior capsular structures as well as medial and lateral capsular structures. Cement was mixed on the back table. Cement was then placed on cut surfaces. The tibia was impacted first, followed by the femur and this was held in extension until hardening of cement. Same was done on the patella, which was held with a patellar clamp. Excess cement was removed and then after hardening of cement, excess cement was again removed and then taken through range of motion. There was excellent stability, equal flexion and extension gaps were noted at this point. Then, the trials were removed and the actual polyethylene inserts were placed and held in the tray and noted to be stable. This was taken through range of motion. Tranexamic acid was then placed within the knee itself. While the tourniquet was deflated, no excessive bleeding was noted. Superficial bleeding was coagulated with the Bovie knife as well as with the Werewolf. The medial parapatellar incision was then closed in a running fashion using the Stratafix, then taken through multiple ranges of motion, noted to be stable and secure. This was reinforced with 2 or 3 separate areas of Vicryl and then the superficial tissue and skin was reapproximated. Sterile dressing was applied. The patient was then taken from the operative bed to the postoperative bed, taken to the PACU in stable condition. GREGORIA/ROCAEL DR: Sheron TID: [id number]
[2021-07-27] MEDS: FERROUS SULFATE 325 MG TABLET. PO SCH (16:48)
[2021-07-28 03:00] VITALS: BP 130/61
[2021-07-28] MEDS ORDERED: MAGNESIUM HYDROXIDE 2,400 MG/30 ML ORAL.SUSP. PO PRN (06:00)
[2021-07-28] MEDS ORDERED: GABAPENTIN 100 MG CAPSULE. PO SCH (06:00)
[2021-07-28] MEDS: ONDANSETRON ODT 4 MG TAB.RAPDIS. PO SCH (06:00)
[2021-07-28] MEDS: ONDANSETRON PF 4 MG/2 ML VIAL. IVP SCH (06:00)
[2021-07-28] MEDS: traMADol 50 MG TABLET PO SCH ×3 (06:28→17:36)
[2021-07-28 07:00] VITALS: BP 134/63
[2021-07-28] MEDS: CETIRIZINE HCL 10 MG TABLET. PO SCH (08:32)
[2021-07-28] MEDS: ASPIRIN 325 MG TABLET PO SCH (08:33)
[2021-07-28] MEDS: ACETAMINOPHEN 500 MG TABLET PO SCH ×3 (08:33→21:23)
[2021-07-28] MEDS: SENNOSIDES/DOCUSATE 8.6/50MG TABLET. PO SCH (08:33)
[2021-07-28] MEDS: FERROUS SULFATE 325 MG TABLET. PO SCH ×2 (08:33→12:25)
[2021-07-28] MEDS: MULTIVITAMIN with MINERAL TABLET. PO SCH (08:33)
[2021-07-28] MEDS ORDERED: NON FORMULARY ITEM (Budesonide/Formoterol Fumarate (Symbicort 160-4.5 Mcg Inhaler) 2 PUFF) IH SCH (09:00)
--- NOTE | 2021-07-28 09:27 | PDOC ---
Provider Note Date of Service: DATE: 07/28/21 TIME: 09:26 Provider Note Consult dictated #[id number]. Justifications for Admission Other Justification ALCIDES SWANSON MD Jul 28, 2021 09:27
[2021-07-28] MEDS: BUDESONIDE 0.5 MG/2 ML NEBU. NEB SCH ×2 (09:30→20:21)
[2021-07-28] MEDS: IV NORMAL SALINE 1000ML BAG 1,000 ML IV SCH (10:00)
--- NOTE | 2021-07-28 10:03 | CONS ---
DATE OF CONSULTATION: 07/28/2021 REASON FOR CONSULTATION: Multiple medical problems. HISTORY OF PRESENT ILLNESS: This is a 76-year-old female who has a history of polyarthritis, hypertension, congestive heart failure, coronary artery disease and multiple other medical problems, had left knee pain that continues to get worse in spite of multiple interventions including steroid injections. She was admitted by Dr. Steel and underwent left total knee arthroplasty. Medical consultation has been requested for management of medical issues. SYSTEMS REVIEW: At present time, the patient complains of left knee pain. She did have some bleeding yesterday and dressing was changed. 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 She denies any cold, cough, congestion, fever, dyspnea, chest pains, abdominal pain, nausea, constipation, diarrhea, palpitations, diaphoresis or any other issues at this time. Other systems reviewed and are negative. PAST MEDICAL HISTORY: She has a history of primary osteoarthritis of multiple joints, coronary artery disease, hypertension, congestive heart failure, anxiety, asthma, COPD, hyperlipidemia, hypothyroidism, morbid obesity, history of myocardial infarction, chronic kidney disease stage III, history of recurrent UTI and gout. PAST SURGICAL HISTORY: The patient had PCI with stenting in 07/2012, also has a history of thyroid surgery. FAMILY HISTORY: Father had lung cancer. Mother had diabetes mellitus. SOCIAL HISTORY: No history of smoking, alcoholism, or drug abuse. ALLERGIES: THE PATIENT IS ALLERGIC TO LISINOPRIL. MEDICATIONS: Reviewed and reconciled. PHYSICAL EXAMINATION: GENERAL: The patient is an elderly female, who is alert, oriented x 3, and not in acute distress. VITAL SIGNS: Temperature 98.4, pulse 67 per minute, respirations 14 per minute, blood pressure 134/63 mmHg. EYES: Pupils reactive to light. Conjunctivae pink. Sclerae white. HENT: Unremarkable. NECK: Supple. JVP normal. No thyromegaly. Trachea midline. LUNGS: Decreased breath sounds at bases. No rales or wheezing. No tachypnea. CARDIOVASCULAR SYSTEM: S1, S2, regular. ABDOMEN: Soft, nontender, no guarding, no rigidity. Bowel sounds present. EXTREMITIES: No edema of the right lower extremity, 1+ edema of the left lower extremity with dressing in place on the left knee. CENTRAL NERVOUS SYSTEM: Generalized weakness. Alert and oriented. LABORATORY FINDINGS: None available. Serology for COVID-19 antigen test was negative. IMPRESSION: 1. Hypertension, stable. 2. Coronary artery disease. 3. Congestive heart failure. 4. Osteoarthritis. 5. Status post left total knee arthroplasty. 6. Morbid obesity. 7. Physical deconditioning. 8. Hyperlipidemia. 9. Acquired hypothyroidism. 10. Chronic kidney disease, stage III, stable. 11. History of gout. 12. Asthma. 13. History of anemia. PLAN: Currently, the patient does not have any significant fluid retention and also does not have any dyspnea. I will not resume Lasix at this time. Recheck labs in a.m. including CBC and CMP. Monitor for fluid retention. I will resume some of her home medications. Hemodynamically and clinically, the patient is stable. She is requesting to go to [facility] when she is stable. We will consult social media sr strategy manager. For details, please refer to the orders. Dr. Steel, thank you very much for letting me participate in the care of this patient. I will follow her with you as needed. MAHESH DR: Tio TID: [id number] CC: Mandeep Steel,
[2021-07-28 11:00] VITALS: BP 105/51
[2021-07-28] MEDS: MONTELUKAST SODIUM 10 MG TABLET. PO SCH (11:04)
[2021-07-28] MEDS: LEVOTHYROXINE 175 MCG TABLET PO SCH (11:04)
[2021-07-28] MEDS: CHOLECALCIFEROL (VITAMIN D3) 1,000 UNIT TABLET PO SCH (11:04)
[2021-07-28] MEDS: oxyCODONE IR 5 MG TABLET PO PRN ×3 (11:05→21:23)
[2021-07-28] MEDS ORDERED: ONDANSETRON ODT 4 MG TAB.RAPDIS. PO PRN (12:00)
[2021-07-28] MEDS ORDERED: ONDANSETRON PF 4 MG/2 ML VIAL. IVP PRN (12:00)
[2021-07-28] MEDS: ALBUTEROL SULFATE 2.5 MG/3 ML NEBU. NEB SCH ×3 (12:00→20:21)
--- NOTE | 2021-07-28 13:57 | PREOP HP ---
DATE OF SERVICE: 07/27/2021 REASON FOR EVALUATION: Preop surgery for a left total knee arthroplasty. BRIEF HISTORY: The patient is a 76-year-old female with a history of significant degenerative joint disease to both knees, but the left is worse than the right at this point. She does have difficulty with activities of daily living with a lot of issues with that knee itself, but does not fully extend and also cannot hold her. She uses a walker on a chronic basis secondary to the pain. PAST MEDICAL HISTORY: Remarkable for gout, hypertension, hyperlipidemia, coronary artery disease, COPD, hypothyroidism and CHF. MEDICATIONS: Include iron, Dahlgren, Symbicort, vitamin D3, cetirizine, montelukast, gabapentin, atenolol, aspirin 1 daily, atorvastatin, colchicine, losartan, furosemide and levothyroxine. REVIEW OF SYSTEMS: Current review of systems is unremarkable for anything as far as chest pain. She does have dyspnea and exertional dyspnea as well, worsening and significant bilateral knee pain. PHYSICAL EXAMINATION: Today, she is 63 inches tall, 263 pounds. She has significant varus deformity to both knees at this point. She is not unstable. This varus deformity is not correctable to neutral at this point. She lacks full extension by 10 degrees. Flexion is only up to 90. There is no significant atrophy of musculature bilaterally, but definite weakness with extension secondary to pain. No atrophy of musculature is noted. Distal neurovascular status is fully intact. IMPRESSION: Severe degenerative joint disease, bilateral knees. PLAN: At this time, I have talked with her at length about the diagnosis and the treatment plan. She wishes to proceed with knee arthroplasty and has been cleared by her family physicians and credentialer at this point. We will proceed as soon as she is seen by anesthesia. FRANKIE HOUSE: Sheron TID: [id number]
[2021-07-28 15:00] VITALS: BP 106/88
[2021-07-28] MEDS ORDERED: BISACODYL 10 MG SUPP.RECT. PR PRN (16:00)
--- NOTE | 2021-07-28 16:43 | NUR ---
had an episode of bleeding last shift; removed ALFRED dressing and placed 4x4's abd x2 and meggan wrap. No further bleeding this shift; reinforced dressing removed. cleansed with alcohol; no active bleeding noted. replaced with 10 pack 4x4's 2 abd's and then medigrip placed. spoke with Dr. Steel regarding aspirin daily. to continue this until tomorrow. if she continues to have bleeding then will continue asa daily. if no further bleeding will proceed to bid. Covid test completed and sent down to the lab regarding pain has increased during the day. she hs had lilia x1 today. she is getting up the bedside commode to void. states that the rcliner causes increase pain.
[2021-07-28 19:00] VITALS: BP 120/63
[2021-07-28 23:00] VITALS: BP 124/58
[2021-07-29] MEDS: traMADol 50 MG TABLET PO SCH ×4 (00:55→18:00)
[2021-07-29] MEDS: ACETAMINOPHEN 500 MG TABLET PO SCH ×4 (03:00→21:32)
[2021-07-29] MEDS: LEVOTHYROXINE 175 MCG TABLET PO SCH (05:57)
[2021-07-29 06:37] LABS: BASO % 0 % (0-3); EOS # 0.2 x10^3/uL (0.0-0.7); EOS % 3 % (0-3); HEMATOCRIT 32.6 % (36.0-47.0); HEMOGLOBIN 10.2 g/dL (12.0-15.5); LYMPH # 1.2 x10^3/uL (1.0-4.8); LYMPH % 13 % (24-48); MEAN CORPUSCULAR HEMOGLOBIN 30 pg (25-35); MEAN CORPUSCULAR HGB CONC 31 g/dL (31-37); MEAN CORPUSCULAR VOLUME 96 fL (79-100); MONO # 0.6 x10^3/uL (0.0-1.1); MONO % 6 % (0-9); NEUT # 7.2 x10^3/uL (1.8-7.7); NEUT % 78 % (31-73); PLATELET COUNT 124 x10^3/uL (140-400); RED BLOOD COUNT 3.39 x10^6/uL (3.50-5.40); RED CELL DISTRIBUTION WIDTH 15.6 % (11.5-14.5); WHITE BLOOD COUNT 9.3 x10^3/uL (4.0-11.0)
[2021-07-29 06:42] LABS: ALBUMIN 2.7 g/dL (3.4-5.0); ALBUMIN/GLOBULIN RATIO 0.9 (1.0-1.7); CREATININE 1.3 mg/dL (0.6-1.0); GFR 48.2; POTASSIUM 4.1 mmol/L (3.5-5.1); TOTAL BILIRUBIN 0.7 mg/dL (0.2-1.0); TOTAL PROTEIN 5.8 g/dL (6.4-8.2)
[2021-07-29 07:00] VITALS: BP 98/55
[2021-07-29] MEDS: BUDESONIDE 0.5 MG/2 ML NEBU. NEB SCH ×2 (07:17→20:12)
[2021-07-29] MEDS: ALBUTEROL SULFATE 2.5 MG/3 ML NEBU. NEB SCH ×3 (07:17→20:12)
--- NOTE | 2021-07-29 08:07 | PDOC ---
IM PROGRESS NOTES- Subjective Subjective Complaints of left knee pain. Objective Vitals/I&O Vital Signs Date Time Temp Pulse Resp B/P (MAP) Pulse Ox O2 Delivery O2 Flow Rate FiO2 07/29/21 07:18 94 Nasal Cannula 3.0 07/29/21 07:00 98.5 107 18 98/55 (69) 98.5 I & O 07/28/21 07/28/21 07/29/21 15:00 23:00 07:00 Intake Total 240 ml 220 ml 640 ml Balance 240 ml 220 ml 640 ml Physical Exam Physical Exam General Appearance - alert and in no distress Chest - decreased breath sounds at bases Heart - S1 and S2 normal Abdomen - soft, non tender Neurological - alert and oriented Musculoskeletal - generalized weakness Extremities -left leg swelling and left knee dressing. Labs Laboratory Tests Test 07/29/21 05:40 White Blood Count 9.3 x10^3/uL (4.0-11.0) Red Blood Count 3.39 x10^6/uL (3.50-5.40) L Hemoglobin 10.2 g/dL (12.0-15.5) L Hematocrit 32.6 % (36.0-47.0) L Mean Corpuscular Volume 96 fL (79-100) Mean Corpuscular Hemoglobin 30 pg (25-35) Mean Corpuscular Hemoglobin Concent 31 g/dL (31-37) Red Cell Distribution Width 15.6 % (11.5-14.5) H Platelet Count 124 x10^3/uL (140-400) L Neutrophils (%) (Auto) 78 % (31-73) H Lymphocytes (%) (Auto) 13 % (24-48) L Monocytes (%) (Auto) 6 % (0-9) Eosinophils (%) (Auto) 3 % (0-3) Basophils (%) (Auto) 0 % (0-3) Neutrophils # (Auto) 7.2 x10^3/uL (1.8-7.7) Lymphocytes # (Auto) 1.2 x10^3/uL (1.0-4.8) Monocytes # (Auto) 0.6 x10^3/uL (0.0-1.1) Eosinophils # (Auto) 0.2 x10^3/uL (0.0-0.7) Basophils # (Auto) 0.0 x10^3/uL (0.0-0.2) Sodium Level 143 mmol/L (136-145) Potassium Level 4.1 mmol/L (3.5-5.1) Chloride Level 108 mmol/L (98-107) H Carbon Dioxide Level 29 mmol/L (21-32) Anion Gap 6 (6-14) Blood Urea Nitrogen 20 mg/dL (7-20) Creatinine 1.3 mg/dL (0.6-1.0) H Estimated GFR (Cockcroft-Gault) 48.2 BUN/Creatinine Ratio 15 (6-20) Glucose Level 96 mg/dL (70-99) Calcium Level 8.0 mg/dL (8.5-10.1) L Total Bilirubin 0.7 mg/dL (0.2-1.0) Aspartate Amino Transferase (AST) 12 U/L (15-37) L Alanine Aminotransferase (ALT) 10 U/L (14-59) L Alkaline Phosphatase 61 U/L (46-116) Total Protein 5.8 g/dL (6.4-8.2) L Albumin 2.7 g/dL (3.4-5.0) L Albumin/Globulin Ratio 0.9 (1.0-1.7) L Laboratory Tests 07/29/21 05:40 Laboratory Tests 07/29/21 05:40 Meds Current Medications Medications (Trade) Dose Ordered Sig/Negro Route PRN Reason Start Time Stop Time Status Last Admin Dose Admin Multivitamins (Thera M Plus) 1 tab DAILY PO 07/28/21 09:00 07/28/21 08:33 Senna/Docusate Sodium (Senna Plus) 1 tab DAILY PO 07/28/21 09:00 07/28/21 08:33 Acetaminophen (Tylenol) 1,000 mg Q6H PO 07/28/21 09:00 07/28/21 21:23 Vitamin D (Vitamin D3) 2,000 unit DAILY PO 07/28/21 09:00 07/28/21 11:04 Levothyroxine Sodium (Synthroid) 175 mcg DAILY06 PO 07/28/21 10:30 07/29/21 05:57 Montelukast Sodium (Singulair) 10 mg DAILY PO 07/28/21 09:00 07/28/21 11:04 Budesonide (Pulmicort) 0.5 mg RTBID [facility] 07/28/21 09:30 07/29/21 07:17 Albuterol Sulfate (Ventolin Neb Soln) 2.5 mg Q6HRS [facility] 07/28/21 12:00 07/29/21 07:17 Assessment Assessment 1. Hypertension, stable. 2. Coronary artery disease. 3. Congestive heart failure. 4. Osteoarthritis. 5. Status post left total knee arthroplasty. 6. Morbid obesity. 7. Physical deconditioning. 8. Hyperlipidemia. 9. Acquired hypothyroidism. 10. Chronic kidney disease, stage III, stable. 11. History of gout. 12. Asthma. 13. History of anemia. PLAN: Currently, the patient does not have any significant fluid retention and also does not have any dyspnea. I will not resume Lasix at this time. Monitor for fluid retention. I will resume some of her home medications. Hemodynamically and clinically, the patient is stable. Discharge to [facility] tomorrow. Encourage to increase activity. The labs are reviewed and are stable. Hemoglobin is 10.2. Creatinine 1.3. PT / OT. Plan Plan For more details regarding further plans, please refer to the orders. Justifications for Admission Other Justification ALCIDES SWANSON MD Jul 29, 2021 08:07
[2021-07-29] MEDS ORDERED: DICLOFENAC SODIUM 1% TOPICAL GEL 100GM TUBE. TP PRN ×2 (09:00→10:45)
[2021-07-29] MEDS: SENNOSIDES/DOCUSATE 8.6/50MG TABLET. PO SCH (09:53)
[2021-07-29] MEDS: FERROUS SULFATE 325 MG TABLET. PO SCH ×2 (09:53→17:59)
[2021-07-29] MEDS: ASPIRIN 325 MG TABLET PO SCH (09:53)
[2021-07-29] MEDS: MULTIVITAMIN with MINERAL TABLET. PO SCH (09:53)
[2021-07-29] MEDS: CETIRIZINE HCL 10 MG TABLET. PO SCH (09:54)
[2021-07-29] MEDS: IV NORMAL SALINE 1000ML BAG 1,000 ML IV SCH (09:54)
[2021-07-29] MEDS: CHOLECALCIFEROL (VITAMIN D3) 1,000 UNIT TABLET PO SCH (09:54)
[2021-07-29] MEDS: MONTELUKAST SODIUM 10 MG TABLET. PO SCH (09:54)
[2021-07-29] MEDS: oxyCODONE IR 5 MG TABLET PO PRN (10:37)
[2021-07-29] MEDS ORDERED: MULT1TAB92 PO (11:51)
--- NOTE | 2021-07-29 11:53 | SNU/HH DC ---
DISCHARGE ORDERS DISCHARGE INFORMATION: CONDITION ON DISCHARGE: Stable POST DISCHARGE ORDERS: ACTIVITY ORDERS: Activity as tolerated WEIGHT BEARING STATUS: As tolerated DIET AFTER DISCHARGE: Cardiac WOUND/INCISION CARE: Change dressing OTHER ORDERS: Fall Precautions CHECKS AFTER DISCHARGE: CHECKS AFTER DISCHARGE: Check blood press - daily, Weigh Yourself Daily FOLLOW-UP: LAB ORDERS FOR FOLLOW-UP: CBC,CMP twice a week TREATMENT/EQUIPMENT ORDERS: ADAPTIVE EQUIPMENT NEEDED: Front wheeled walker RESPIRATORY EQUIPMENT NEEDED: Oxygen (3 lit/min) Physical Therapy For: Evalulation/Treatment Occupational Therapy For: Evaluation/Treatment DISCHARGE MEDICATIONS: Home Meds Active Scripts Sennosides/Docusate Sodium (STOOL SOFT-STIMULANT LAX TAB) 1 Each Tablet, 2 TAB PO PRN BID PRN for CONSTIPATION for 30 Days, #60 TAB Prov:ALCIDES SWANSON MD 12/03/20 Acetaminophen (ACETAMINOPHEN) 325 Mg Tablet, 650 MG PO PRN Q6HRS PRN for MILD PAIN / TEMP > 100.3'F for 7 Days, #28 TAB Prov:ALCIDES SWANSON MD 12/03/20 Reported Medications Colchicine (COLCRYS) 0.6 Mg Tablet, 1 TAB PO DAILY for gout pain for 30 Days, #30 TAB 0 Refills 07/27/21 Levothyroxine Sodium (LEVOTHYROXINE SODIUM) 175 Mcg Tablet, 1 TAB PO DAILY for THYROID, #30 TAB 5 Refills 07/27/21 Aspirin (ASPIRIN) 81 Mg Tab.chew, 81 MG PO DAILY for DVT, TAB.CHEW 11/30/20 Diclofenac Sodium (DICLOFENAC SODIUM) 100 Gm Gel..gram., 100 GM TP PRN PRN for PAIN, EACH 07/09/20 Hydroxychloroquine Sulfate (HYDROXYCHLOROQUINE SULFATE) 200 Mg Tablet, 1 TAB PO BID for anticoag, #180 TAB 1 Refill 07/09/20 Cholecalciferol (Vitamin D3) (VITAMIN D3) 1,000 Unit Tablet, 2000 UNIT PO DAILY, TAB 01/24/18 Atorvastatin Calcium (ATORVASTATIN CALCIUM) 20 Mg Tablet, 20 MG PO HS for FOR CHOLESTEROL, #30 TAB 0 Refills 01/24/18 Ferrous Sulfate (FERROUS SULFATE) 325 Mg Tablet, 325 MG PO DAILY, TAB 02/09/17 Hydrocodone Bit/Acetaminophen (HYDROCODONE-APAP 7.5-325 ) 1 Each Tablet, 1 TAB PO PRN Q6HRS PRN for PAIN, TAB 0 Refills 02/09/17 Budesonide/Formoterol Fumarate (SYMBICORT 160-4.5 MCG INHALER) 10.2 Gm Hfa.aer.ad, 2 PUFF IH BID, #10.6 GM 3 Refills 02/09/17 Montelukast Sodium (SINGULAIR TABLET ) 10 Mg Tablet, 1 TAB PO DAILY, #90 TAB 1 Refill 04/27/14 Cetirizine Hcl (CETIRIZINE HCL) 10 Mg Tablet, 1 TAB PO DAILY, #30 TAB 5 Refills 04/27/14 Gabapentin (GABAPENTIN ) 300 Mg Capsule, 1 CAP PO TID, #90 CAP 5 Refills 04/27/14 ALCIDES SWANSON MD Jul 29, 2021 11:53
[2021-07-29 11:56] LABS: HEMOGLOBIN 10.6 g/dL (12.0-15.5)
--- NOTE | 2021-07-29 12:32 | PN ---
DATE: 07/29/2021 Postoperative day #2 for the patient. She is doing very well today. Overall, she is able to get from a chair to bed and back. She is having some difficulty with physical therapy at this point secondary to her size and there is some active bleeding inferiorly, but it is controlled at this point. There is a small area also proximal along the area of incision, but no signs or symptoms of infection, no signs or symptoms of DVT at this point. At this point, she is going to be discharged to a rehab facility tomorrow. I have talked with her family already multiple times about this. They agree that this is the best option for her. We will watch the wound very closely. Continue with DVT prophylaxis and see her back for reevaluation for postoperative as necessary for the wound and certainly see her in the office in 2-[address]: Sheron TID: [id number]
--- NOTE | 2021-07-29 17:15 | PATHOLOGY ---
[facility] Accession Number: [id number] . 01 Material submitted: . knee - LEFT PATELLA, TIBIA, AND FEMUR. Modifiers: left . 01 Clinical history: . LEFT TOTAL KNEE OSTEOARTHRITIS LEFT TOTAL KNEE ARTHROPLASTY . 02 Diagnosis: Segments of bone and soft tissue, left total knee arthroplasty: - Focally advanced degenerative arthritis. . (JPM:mml; 07/29/2021) M 07/29/2021 1214 Local . 02 Electronically signed: . Chau Tucker MD, Pathologist NPI- [id number] . 01 Gross description: . The specimen is received in formalin, labeled "Violet Levy, left patella, tibia and femur". Received are multiple segments of bone, including the tibial plateau, admixed with soft tissue measuring 14.1 x 11.4 x 3.2 cm in aggregate dimensions. A segment of possible meniscus is identified. The articular surfaces are pink-de la o to yellow-de la o and smooth to granular in appearance with evidence of eburnation. The specimen is submitted roofing sales representative in cassette A1, following decalcification. ([facility]; 07/27/2021) NRI/NRI 07/27/2021 2207 Local . 02 Pathologist provided ICD-10: M17.12 . 02 CPT . 111051, [id number] Specimen Comment: A courtesy copy of this report has been sent to [phone] Specimen Comment: Report sent to Performed at: 01 [facility] [address], [place] [id number] MD Frankie Jacobs MD Phone: [phone] Performed at: 02 [facility] [id number] MD Chau Tucker MD Phone: [phone]
[2021-07-29 19:30] VITALS: BP 140/56
[2021-07-29 23:22] VITALS: BP 133/60
[2021-07-30] MEDS: traMADol 50 MG TABLET PO SCH ×3 (00:02→11:54)
[2021-07-30] MEDS: ACETAMINOPHEN 500 MG TABLET PO SCH ×2 (03:00→07:59)
[2021-07-30] MEDS: LEVOTHYROXINE 175 MCG TABLET PO SCH (06:11)
[2021-07-30] MEDS: BUDESONIDE 0.5 MG/2 ML NEBU. NEB SCH (07:14)
[2021-07-30] MEDS: ALBUTEROL SULFATE 2.5 MG/3 ML NEBU. NEB SCH ×2 (07:14)
[2021-07-30 07:20] VITALS: BP 115/69
[2021-07-30] MEDS: CHOLECALCIFEROL (VITAMIN D3) 1,000 UNIT TABLET PO SCH (07:58)
[2021-07-30] MEDS: MULTIVITAMIN with MINERAL TABLET. PO SCH (07:58)
[2021-07-30] MEDS: FERROUS SULFATE 325 MG TABLET. PO SCH (07:58)
[2021-07-30] MEDS: MONTELUKAST SODIUM 10 MG TABLET. PO SCH (07:58)
[2021-07-30] MEDS: SENNOSIDES/DOCUSATE 8.6/50MG TABLET. PO SCH (07:58)
[2021-07-30] MEDS: CETIRIZINE HCL 10 MG TABLET. PO SCH (07:58)
[2021-07-30] MEDS: ASPIRIN 325 MG TABLET PO SCH (07:58)
[2021-07-30] MEDS: oxyCODONE IR 5 MG TABLET PO PRN (07:59)
[2021-07-30] MEDS: IV NORMAL SALINE 1000ML BAG 1,000 ML IV SCH (08:41)
--- NOTE | 2021-07-30 10:18 | PDOC3 ---
IM DISCHARGE SUMMARY Date of Admission Date of Admission Date of Admission: Jul 27, 2021 at 09:16 Date of Discharge Date of Discharge July 30, 2021 Primary Diagnosis Primary Diagnosis 1. Hypertension, stable. 2. Coronary artery disease. 3. Congestive heart failure. 4. Osteoarthritis. 5. Status post left total knee arthroplasty. 6. Morbid obesity. 7. Physical deconditioning. 8. Hyperlipidemia. 9. Acquired hypothyroidism. 10. Chronic kidney disease, stage III, stable. 11. History of gout. 12. Asthma. 13. History of anemia. Consults Consults Procedures Procedures Left total knee arthroplasty Labs Labs Laboratory Tests Test 07/29/21 11:40 Hemoglobin 10.6 g/dL (12.0-15.5) L Hematocrit 33.0 % (36.0-47.0) L Mean Corpuscular Hemoglobin Concent 32 g/dL (31-37) Laboratory Tests 07/29/21 11:40 Brief hospital course Brief hospital course This is a 76-year-old female who has a history of polyarthritis, hypertension, congestive heart failure, coronary artery disease and multiple other medical problems, had left knee pain that continues to get worse in spite of multiple interventions including steroid injections. She was admitted by Dr. Steel and underwent left total knee arthroplasty. Medical consultation has been requested for management of medical issues For more details regarding the past history, family history, social history, surgical history and other details, please refer to the H&P. Currently, the patient does not have any significant fluid retention and also does not have any dyspnea. I will not resume Lasix at this time. Monitor for fluid retention. I will resume some of her home medications. Hemodynamically and clinically, the patient is stable. Discharge to [facility]. Encourage to increase activity. The labs are reviewed and are stable. Hemoglobin is 10.2. Creatinine 1.3. PT / OT. Medications Medications reviewed and reconciled for discharge. Home Meds Active Scripts Multivits,Ca,Minerals/Iron/Fa (THERA-M TABLET) 1 Each Tablet, 1 TAB PO DAILY for anemia for 30 Days, #30 TAB Prov:ALCIDES SWANSON MD 07/29/21 Sennosides/Docusate Sodium (STOOL SOFT-STIMULANT LAX TAB) 1 Each Tablet, 2 TAB PO PRN BID PRN for CONSTIPATION for 30 Days, #60 TAB Prov:ALCIDES SWANSON MD 12/03/20 Acetaminophen (ACETAMINOPHEN) 325 Mg Tablet, 650 MG PO PRN Q6HRS PRN for MILD PAIN / TEMP > 100.3'F for 7 Days, #28 TAB Prov:ALCIDES SWANSON MD 12/03/20 Reported Medications Levothyroxine Sodium (LEVOTHYROXINE SODIUM) 175 Mcg Tablet, 1 TAB PO DAILY for THYROID, #30 TAB 5 Refills 07/27/21 Aspirin (ASPIRIN) 81 Mg Tab.chew, 81 MG PO DAILY for DVT, TAB.CHEW 11/30/20 Diclofenac Sodium (DICLOFENAC SODIUM) 100 Gm Gel..gram., 100 GM TP PRN PRN for PAIN, EACH 07/09/20 Hydroxychloroquine Sulfate (HYDROXYCHLOROQUINE SULFATE) 200 Mg Tablet, 1 TAB PO BID for anticoag, #180 TAB 1 Refill 07/09/20 Cholecalciferol (Vitamin D3) (VITAMIN D3) 1,000 Unit Tablet, 2000 UNIT PO DAILY, TAB 01/24/18 Atorvastatin Calcium (ATORVASTATIN CALCIUM) 20 Mg Tablet, 20 MG PO HS for FOR CHOLESTEROL, #30 TAB 0 Refills 01/24/18 Ferrous Sulfate (FERROUS SULFATE) 325 Mg Tablet, 325 MG PO DAILY, TAB 02/09/17 Hydrocodone Bit/Acetaminophen (HYDROCODONE-APAP 7.5-325 ) 1 Each Tablet, 1 TAB PO PRN Q6HRS PRN for PAIN, TAB 0 Refills 02/09/17 Budesonide/Formoterol Fumarate (SYMBICORT 160-4.5 MCG INHALER) 10.2 Gm Hfa.aer.ad, 2 PUFF IH BID, #10.6 GM 3 Refills 02/09/17 Montelukast Sodium (SINGULAIR TABLET ) 10 Mg Tablet, 1 TAB PO DAILY, #90 TAB 1 Refill 04/27/14 Cetirizine Hcl (CETIRIZINE HCL) 10 Mg Tablet, 1 TAB PO DAILY, #30 TAB 5 Refills 04/27/14 Gabapentin (GABAPENTIN ) 300 Mg Capsule, 1 CAP PO TID, #90 CAP 5 Refills 04/27/14 Discontinued Reported Medications Colchicine (COLCRYS) 0.6 Mg Tablet, 1 TAB PO DAILY for gout pain for 30 Days, #30 TAB 0 Refills 07/27/21 Allergy Allergies Coded Allergies Type Severity Reaction Last Updated Verified No Known Drug Allergies 07/27/21 No Follow up In 1 week after discharge from the skilled nursing DISPOSITION: Retirement facility Comments Discharge Management - 35 minutes. For other details please refer to discharge instructions Justicifation of Admission Dx: Justifications for Admission: Justification of Admission Dx: Yes ALCIDES SWANSON MD Jul 30, 2021 10:18
[2021-07-30 11:44] LABS: HEMATOCRIT 29.2 % (36.0-47.0); HEMOGLOBIN 9.4 g/dL (12.0-15.5)
--- NOTE | 2021-07-30 12:55 | NUR ---
Report called to PP. IV discontinued. Patient picked up now for discharge by transportation company at 1225.
== END 2021-07-30 12:50 ==
LOC: SURG 05:54 → 4 NORTH 09:16 → INTOOBSV 09:16
PROVIDERS: ADMIT Orthopaedic Surgery; ATTEND Orthopaedic Surgery
DX: M17.12 Unilateral primary osteoarthritis, left knee (principal); Z20.822 Contact with and (suspected) exposure to COVID-19; I13.0 Hypertensive heart and chronic kidney disease with heart failure and stage 1 through stage 4 chronic kidney disease, or unspecified chronic kidney disease; I50.9 Heart failure, unspecified; N18.30 Chronic kidney disease, stage 3 unspecified; J44.9 Chronic obstructive pulmonary disease, unspecified; I25.10 Atherosclerotic heart disease of native coronary artery without angina pectoris; I25.2 Old myocardial infarction; E66.01 Morbid (severe) obesity due to excess calories; E78.5 Hyperlipidemia, unspecified; E03.9 Hypothyroidism, unspecified; Z87.440 Personal history of urinary (tract) infections; Z68.35 Body mass index [BMI] 35.0-35.9, adult; Z79.899 Other long term (current) drug therapy
CPT/HCPCS: 27447; 36415; 73560; 80053; 85014; 85018; 85025; 86850; 86900; 86901; 88305; 88311; 94640; 94760; 96365; 96366; 97110; 97116; 97162; 97165; 97530; 97535; A4213; A4930; A6253; A6450; A6550; C1713; C1776; G0378; G0379; J0171; J0330; J0690; J1100; J1885; J2250; J2270; J2405; J2704; J2710; J2795; J3010; J3490; J7613; J7626; U0003; A4223

== ENCOUNTER 2021-08-19 16:30 | Inpatient (IN) | payer OTHER ==
[~2021-08-19] VITALS: Ht 160 cm; Wt 128.0 kg
[~2021-08-19 16:30] MED LIST changes: +LEVO175T5 PO; +MULT1TAB92 PO
--- NOTE | 2021-08-19 20:20 | NUR ---
Pt arrived to unit per cart pt assisted to bed with assist pt son at bedside vs obtained tele monitor applied to pt. poc explained to pt and pt son assessment completed call light placed in reach pt oriented to surroundings will resume care and continue to monitor pt.
[2021-08-19 22:20] VITALS: BP 131/59
--- NOTE | 2021-08-19 22:58 | NUR ---
Call placed to pt son re: pt home medication, pt son stated he will bring list to hospital in a.. Addendum: 08/20/21 at 0343 by Becky Gomez RN Ta Hector
[2021-08-20] MEDS: HYDROcodone/APAP 5/325MG 1 TAB TABLET PO PRN ×3 (01:29→18:10)
[2021-08-20 02:12] VITALS: BP 101/60
[2021-08-20 07:00] VITALS: BP 128/73
--- NOTE | 2021-08-20 09:00 | PDOC ---
Provider Note Date of Service: DATE: 08/20/21 TIME: 09:00 Provider Note Pt seen.H&P dictated.#[id number]. Justifications for Admission Other Justification LAURA BORDEN MD Aug 20, 2021 09:00
[2021-08-20] MEDS ORDERED: SENNOSIDES/DOCUSATE 8.6/50MG TABLET. PO PRN (10:00)
[2021-08-20] MEDS ORDERED: FUROSEMIDE 40 MG/4 ML VIAL. IVP ONE (10:00)
[2021-08-20] MEDS ORDERED: IPRATRPIUM/ALBUTEROL 0.5/2.5MG 3 ML NEBU. NEB ONE (10:00)
[2021-08-20] MEDS ORDERED: DICLOFENAC SODIUM 1% TOPICAL GEL 100GM TUBE. TP PRN (10:15)
[2021-08-20 10:29] LABS: BASO # 0.1 x10^3/uL (0.0-0.2); BASO % 1 % (0-3); EOS # 0.1 x10^3/uL (0.0-0.7); EOS % 1 % (0-3); HEMATOCRIT 31.4 % (36.0-47.0); LYMPH # 1.6 x10^3/uL (1.0-4.8); LYMPH % 17 % (24-48); MEAN CORPUSCULAR HEMOGLOBIN 29 pg (25-35); MEAN CORPUSCULAR HGB CONC 32 g/dL (31-37); MEAN CORPUSCULAR VOLUME 91 fL (79-100); MONO # 0.6 x10^3/uL (0.0-1.1); MONO % 7 % (0-9); NEUT # 6.9 x10^3/uL (1.8-7.7); NEUT % 74 % (31-73); PLATELET COUNT 290 x10^3/uL (140-400); RED BLOOD COUNT 3.45 x10^6/uL (3.50-5.40); RED CELL DISTRIBUTION WIDTH 16.5 % (11.5-14.5); WHITE BLOOD COUNT 9.3 x10^3/uL (4.0-11.0)
[2021-08-20] MEDS: HYDROXYCHLOROQUINE 200 MG TABLET PO SCH ×2 (10:32→20:29)
[2021-08-20] MEDS: MULTIVITAMIN with MINERAL TABLET. PO SCH (10:33)
[2021-08-20] MEDS: ASPIRIN CHEWABLE 81 MG TABLET. PO SCH (10:33)
[2021-08-20] MEDS: CHOLECALCIFEROL (VITAMIN D3) 1,000 UNIT TABLET PO SCH (10:33)
[2021-08-20] MEDS: MONTELUKAST SODIUM 10 MG TABLET. PO SCH (10:33)
[2021-08-20] MEDS: HEPARIN for SUB-Q USE 5,000 UNIT/ML VIAL. SQ SCH ×3 (10:35→22:08)
[2021-08-20 11:00] VITALS: BP 125/66
[2021-08-20 11:03] LABS: ALBUMIN 2.3 g/dL (3.4-5.0); ALBUMIN/GLOBULIN RATIO 0.5 (1.0-1.7); CALCIUM 8.7 mg/dL (8.5-10.1); CREATININE 2.3 mg/dL (0.6-1.0); GFR 24.9; MAGNESIUM 2.1 mg/dL (1.8-2.4); POTASSIUM 4.9 mmol/L (3.5-5.1); TOTAL PROTEIN 6.6 g/dL (6.4-8.2)
--- NOTE | 2021-08-20 13:02 | HP ---
DATE OF SERVICE: 08/20/2021 ADMIT DATE: 08/19/2021 MEDICAL HISTORY AND PHYSICAL PATIENT LOCATION: [facility]. REASON FOR ADMISSION TO THE HOSPITAL: Shortness of breath, congestive heart failure, acute on chronic. HISTORY OF PRESENT ILLNESS: The patient is a 76-year-old female. The patient had a left knee replacement 3 weeks ago and at [place] when she went to [facility] for rehab from [facility]. She was discharged home a couple of days ago. She was noticed to have more shortness of breath and swelling in lower extremities. The patient was sent to the Emergency Room for evaluation. Her BNP was high and also D-dimer was high and had a CT scan of the chest to rule out PE was done, report is pending and the patient was admitted to the hospital, was given IV Lasix and she was also requiring oxygen between 2-3 liters. PAST MEDICAL HISTORY: The patient was in the hospital as mentioned 3 weeks ago for knee replacement and from there, she went to [facility] and then home. She also has a history of congestive heart failure, COPD, hypothyroidism, morbid obesity, hypertension, hyperlipidemia, CAD. PAST SURGICAL HISTORY: As mentioned, recent left knee replacement. MEDICATIONS: Iron, [place], Symbicort, vitamin D, cetirizine, Singulair, gabapentin, atenolol, aspirin, atorvastatin, colchicine, losartan, Lasix, and levothyroxine. PERSONAL HISTORY: Denies smoking or alcohol. ALLERGIES: No known allergies. MEDICATIONS AT HOME: As mentioned. FAMILY HISTORY: Hypertension, heart disease. REVIEW OF SYMPTOMS: Complains of feeling swollen and short of breath and no chest pain. PHYSICAL EXAMINATION: GENERAL: The patient is morbidly obese. VITAL SIGNS: Temperature at the time of admission shows 98, pulse 80, respirations 25, blood pressure 130/59, 98% on 3 liters. HEENT: Head is atraumatic. Pupils equal. Oral cavity, no congestion. NECK: Supple. Thyroid not enlarged. JVD not elevated. CHEST: Symmetrical. CARDIOVASCULAR: S1, S2. No murmurs. LUNGS: Good air entry. No wheezing. ABDOMEN: Obese. No mass palpable. EXTERNAL GENITALIA: No [place]. RECTAL: Deferred. EXTREMITIES: Had a left knee replacement. Incision looks fine. Stitches are still present. No calf tenderness. NEUROLOGIC: Moving all extremities. No focal deficits noted. The patient has 1-2+ edema of lower extremities. LABORATORY DATA: White count of 9, hemoglobin 10, platelets 290. D-dimer 10.3. Electrolytes show sodium 137, potassium 4.9, chloride 103, bicarbonate 29, BUN 27, creatinine 2.3. Lactic acid 1.5. Liver function, AST 117, ALT 100. Troponin was high at 226 and BNP 30,000. The patient had a chest x-ray, report is pending. Mild congestive heart failure. CT chest, report is pending. EKG, no acute ischemic changes. FINAL IMPRESSION: 1. Acute on chronic congestive heart failure. 2. Elevated troponin, rule out silent myocardial infarction. 3. Kidney disease, creatinine 2.3. 4. Morbid obesity. 5. Recent left knee replacement. 6. Hypertension. 7. Hyperlipidemia. 8. Hypothyroidism. PLAN: At this time, admit to hospital, was given IV Lasix, subcutaneous heparin 3 times daily for DVT prophylaxis. Cardiology consultation, serial cardiac enzymes and see how the patient's improves in the next 24-48 hours. JIMENA/YAYA DR: JIMENA/dick TID: [id number] CC: ALCIDES SWANSON MD
[2021-08-20] MEDS ORDERED: CLOP75TA PO (13:05)
[2021-08-20] MEDS ORDERED: LOSA-73 PO (13:05)
[2021-08-20] MEDS ORDERED: POTA20TA4 PO (13:05)
[2021-08-20] MEDS ORDERED: ATEN25TA PO (13:05)
[2021-08-20] MEDS ORDERED: COLC0.6T34 PO (13:05)
[2021-08-20] MEDS: GABAPENTIN 300 MG CAPSULE. PO SCH ×2 (13:37→20:28)
[2021-08-20] MEDS: FUROSEMIDE 20 MG/2 ML VIAL. IVP SCH (13:37)
[2021-08-20 15:00] VITALS: BP 106/58
[2021-08-20] MEDS: IPRATRPIUM/ALBUTEROL 0.5/2.5MG 3 ML NEBU. NEB SCH ×2 (15:32→21:23)
[2021-08-20] MEDS: NYSTATIN TOPICAL POWDER 15GM BOTTLE. TP SCH ×2 (15:51→20:29)
--- NOTE | 2021-08-20 16:21 | PDOC2 ---
CARDIOLOGY CONSULT NOTE DATE OF SERVICE: DATE: 08/20/21 TIME: 16:16 CHIEF COMPLAINT: Unable to ambulate at home and heart failure HPI: 76-year-old morbidly obese woman who comes into hospital for weakness and failure to thrive. She recently recovered from the surgery and was at [facility] and was discharged from there and came right back to the hospital due to inability to walk around. Apparently the patient and family we re insisting that the patient go home and usually they help the patient into her house and take care of most of her daily needs. Cardiology was asked to evaluate the patient due to significant heart failure symptoms with bilateral lower extremity edema and hypoxia. The patient currently denies any chest pain or dyspnea. At baseline she is mostly sedentary. No syncope or palpitations PMHX: 1. Coronary artery disease 2. Ischemic cardiomyopathy with ejection fraction of 40 to 45% 3. Dyslipidemia 4. Hypertension 5. Morbid obesity SOCHX: Patient lives at home by herself. Her sons are very helpful to her and take care of most of her needs. No alcohol, tobacco or illicit drug FAMHX: Noncontributory CURRENT MEDS: Medications reviewed ALLERGIES: Allergies Coded Allergies Type Severity Reaction Last Updated Verified No Known Drug Allergies 07/27/21 No ROS: Negative for 10 out of 14 systems reviewed unless otherwise mentioned above in HPI PHYSICAL EXAM: Vital Signs/I&O: Vital Signs Date Time Temp Pulse Resp B/P (MAP) Pulse Ox O2 Delivery O2 Flow Rate FiO2 08/20/21 15:35 94 Nasal Cannula 2.0 08/20/21 11:00 98.0 87 18 125/66 (85) 98.0 I & O0 08/19/21 08/19/21 08/20/21 15:00 23:00 07:00 Intake Total 300 ml Balance 300 ml Physical Exam: GEN.: No apparent distress. Alert and oriented. HEENT: Head is normocephalic, atraumatic NECK: Supple. LUNGS: Decreased breath sounds bilaterally HEART: RRR, S1, S2 present. Peripheral pulses intact ABDOMEN: Soft, nontender. Positive bowel sounds. EXTREMITIES: Bilateral 3+ pitting edema NEUROLOGIC: Normal speech, normal tone PSYCHIATRIC: Normal affect, normal mood. SKIN: No ulcerations DIAGNOSTIC TESTING: EKG, telemetry and other diagnostic studies reviewed Echocardiogram in February 2021 demonstrates mild LV dysfunction. Troponin is elevated ASSESSMENT: 1. NSTEMI likely type II 2. Acute on chronic systolic and diastolic heart failure in the setting of recent knee surgery 3. Acute kidney injury on chronic kidney disease 4. Dyslipidemia 5. Morbid obesity PLAN: 1. Agree with diuresis with intravenous Lasix 2. Depending on her response and her renal function may need right heart catheterization on Sunday to help guide treatment. 3. Patient had a prior stress test in 2019 which was unremarkable. No obvious ischemic findings on EKG and therefore no further inpatient testing necessary for her elevated troponin which I suspect is likely secondary to her heart failure issues. Patient appears to be noncompliant with her heart failure dietary regimen and we will impress upon her continued need to monitor her salt intake and fluid intake. EDGAR FERGUSON MD Aug 20, 2021 16:21
--- NOTE | 2021-08-20 19:15 | NUR ---
pt in bed assessment completed vss poc explained call light in reach pt c/o pain pt medicated prior to assessment will resume care and continue to monitor pt.
[2021-08-20 19:36] LABS: BACTERIA,URINE MOD /HPF (0-FEW); RBC,URINE 0 /HPF (0-2); WBC,URINE 0 /HPF (0-4)
[2021-08-20 19:44] VITALS: BP 114/62
[2021-08-20] MEDS: ATORVASTATIN CALCIUM 20 MG TABLET PO SCH (20:29)
[2021-08-20] MEDS ORDERED: NON FORMULARY ITEM (Budesonide/Formoterol Fumarate (Symbicort 160-4.5 Mcg Inhaler) 2 PUFF) IH SCH (21:00)
[2021-08-20] MEDS: BUDESONIDE 0.5 MG/2 ML NEBU. NEB SCH (21:23)
[2021-08-20 22:54] VITALS: BP 117/60
[2021-08-21 03:12] VITALS: BP 127/61
[2021-08-21 04:56] LABS: BASO # 0.1 x10^3/uL (0.0-0.2); BASO % 1 % (0-3); EOS # 0.2 x10^3/uL (0.0-0.7); EOS % 2 % (0-3); HEMOGLOBIN 12.4 g/dL (12.0-15.5); LYMPH # 0.8 x10^3/uL (1.0-4.8); LYMPH % 8 % (24-48); MEAN CORPUSCULAR HEMOGLOBIN 31 pg (25-35); MEAN CORPUSCULAR HGB CONC 34 g/dL (31-37); MEAN CORPUSCULAR VOLUME 93 fL (79-100); MONO # 1.1 x10^3/uL (0.0-1.1); MONO % 11 % (0-9); NEUT # 7.5 x10^3/uL (1.8-7.7); NEUT % 78 % (31-73); PLATELET COUNT 254 x10^3/uL (140-400); RED BLOOD COUNT 3.98 x10^6/uL (3.50-5.40); RED CELL DISTRIBUTION WIDTH 14.6 % (11.5-14.5); WHITE BLOOD COUNT 9.7 x10^3/uL (4.0-11.0)
[2021-08-21 05:19] LABS: CALCIUM 8.2 mg/dL (8.5-10.1); CREATININE 1.9 mg/dL (0.6-1.0); GFR 31.1; POTASSIUM 4.2 mmol/L (3.5-5.1)
[2021-08-21] MEDS: HEPARIN for SUB-Q USE 5,000 UNIT/ML VIAL. SQ SCH ×3 (05:24→21:16)
[2021-08-21] MEDS: ACETAMINOPHEN 325 MG TABLET. PO PRN ×2 (05:24→21:11)
[2021-08-21 07:00] VITALS: BP 108/62
[2021-08-21] MEDS: IPRATRPIUM/ALBUTEROL 0.5/2.5MG 3 ML NEBU. NEB SCH ×3 (08:00→20:40)
[2021-08-21] MEDS: BUDESONIDE 0.5 MG/2 ML NEBU. NEB SCH ×2 (08:00→20:40)
[2021-08-21] MEDS: LEVOTHYROXINE 175 MCG TABLET PO SCH (08:30)
[2021-08-21] MEDS: HYDROcodone/APAP 5/325MG 1 TAB TABLET PO PRN (08:31)
[2021-08-21] MEDS: MULTIVITAMIN with MINERAL TABLET. PO SCH (08:31)
[2021-08-21] MEDS: FERROUS SULFATE 325 MG TABLET. PO SCH (08:31)
[2021-08-21] MEDS: CETIRIZINE HCL 10 MG TABLET. PO SCH (08:31)
[2021-08-21] MEDS: ASPIRIN CHEWABLE 81 MG TABLET. PO SCH (08:31)
[2021-08-21] MEDS: GABAPENTIN 300 MG CAPSULE. PO SCH ×3 (08:31→21:11)
[2021-08-21] MEDS: HYDROXYCHLOROQUINE 200 MG TABLET PO SCH ×2 (08:31→21:11)
[2021-08-21] MEDS: FUROSEMIDE 20 MG/2 ML VIAL. IVP SCH ×2 (08:31→14:44)
[2021-08-21] MEDS: CHOLECALCIFEROL (VITAMIN D3) 1,000 UNIT TABLET PO SCH (08:31)
[2021-08-21] MEDS: MONTELUKAST SODIUM 10 MG TABLET. PO SCH (08:31)
[2021-08-21] MEDS: NYSTATIN TOPICAL POWDER 15GM BOTTLE. TP SCH ×2 (08:32→21:11)
--- NOTE | 2021-08-21 09:33 | PDOC ---
IM PROGRESS NOTES- Subjective Subjective C/o knee pain. Dyspnea is improving. Objective Vitals/I&O Vital Signs Date Time Temp Pulse Resp B/P (MAP) Pulse Ox O2 Delivery O2 Flow Rate FiO2 08/21/21 08:31 16 90 Nasal Cannula 3.0 08/21/21 07:00 98.1 89 108/62 (77) 98.1 I & O 08/20/21 08/20/21 08/21/21 15:00 23:00 07:00 Intake Total 400 ml 500 ml Output Total 600 ml 950 ml Balance -200 ml -450 ml Physical Exam Physical Exam General Appearance - alert and in mild distress Chest - decreased breath sounds at bases Heart - S1 and S2 normal Abdomen - soft, non tender Neurological - alert and oriented Musculoskeletal - generalized weakness, left knee swelling Extremities - trace edema Labs Laboratory Tests Test 08/20/21 14:00 08/20/21 19:11 08/21/21 01:50 08/21/21 04:00 Troponin I High Sensitivity 191 ng/L (4-50) H 179 ng/L (4-50) H 179 ng/L (4-50) H Urine Collection Type Unknown Urine Color (Auto) Colorless Urine Turbidity Clear Urine pH (Auto) 6.5 (<5.0-8.0) Urine Specific [place] 1.006 (1.000-1.030) Urine Protein (Auto) Negative mg/dL (Negative) Urine Glucose (Auto)(UA) Negative mg/dL (Negative) Urine Ketones (Auto) Negative mg/dL (Negative) Urine Blood (Auto) Negative (Negative) Urine Nitrite (Auto) Negative (Negative) Urine Bilirubin (Auto) Negative (Negative) Urine Urobilinogen (Auto) Normal mg/dL (Normal) Urine Leukocyte Esterase (Auto) Negative (Negative) Urine RBC 0 /HPF (0-2) Urine WBC 0 /HPF (0-4) Urine Squamous Epithelial Cells Few /LPF Urine Bacteria Mod /HPF (0-FEW) White Blood Count 9.7 x10^3/uL (4.0-11.0) Red Blood Count 3.98 x10^6/uL (3.50-5.40) Hemoglobin 12.4 g/dL (12.0-15.5) Hematocrit 37.0 % (36.0-47.0) Mean Corpuscular Volume 93 fL (79-100) Mean Corpuscular Hemoglobin 31 pg (25-35) Mean Corpuscular Hemoglobin Concent 34 g/dL (31-37) Red Cell Distribution Width 14.6 % (11.5-14.5) H Platelet Count 254 x10^3/uL (140-400) Neutrophils (%) (Auto) 78 % (31-73) H Lymphocytes (%) (Auto) 8 % (24-48) L Monocytes (%) (Auto) 11 % (0-9) H Eosinophils (%) (Auto) 2 % (0-3) Basophils (%) (Auto) 1 % (0-3) Neutrophils # (Auto) 7.5 x10^3/uL (1.8-7.7) Lymphocytes # (Auto) 0.8 x10^3/uL (1.0-4.8) L Monocytes # (Auto) 1.1 x10^3/uL (0.0-1.1) Eosinophils # (Auto) 0.2 x10^3/uL (0.0-0.7) Basophils # (Auto) 0.1 x10^3/uL (0.0-0.2) Sodium Level 142 mmol/L (136-145) Potassium Level 4.2 mmol/L (3.5-5.1) Chloride Level 103 mmol/L (98-107) Carbon Dioxide Level 31 mmol/L (21-32) Anion Gap 8 (6-14) Blood Urea Nitrogen 23 mg/dL (7-20) H Creatinine 1.9 mg/dL (0.6-1.0) H Estimated GFR (Cockcroft-Gault) 31.1 Glucose Level 89 mg/dL (70-99) Calcium Level 8.2 mg/dL (8.5-10.1) L Laboratory Tests 08/21/21 04:00 Laboratory Tests 08/21/21 04:00 Meds Current Medications Medications (Trade) Dose Ordered Sig/Negro Route PRN Reason Start Time Stop Time Status Last Admin Dose Admin Acetaminophen (Tylenol) 650 mg PRN Q6HRS PRN PO MILD PAIN / TEMP > 100.3'F 08/20/21 10:00 08/21/21 05:24 Aspirin (Aspirin Chewable) 81 mg DAILY PO 08/20/21 10:30 08/21/21 08:31 Atorvastatin Calcium (Lipitor) 20 mg HS PO 08/20/21 21:00 08/20/21 20:29 Cetirizine HCl (ZyrTEC) 10 mg DAILY PO 08/21/21 09:00 08/21/21 08:31 Ferrous Sulfate (Feosol) 325 mg DAILY PO 08/21/21 09:00 08/21/21 08:31 Gabapentin (Neurontin) 300 mg TID PO 08/20/21 14:00 08/21/21 08:31 Hydroxychloroquine Sulfate (Plaquenil) 200 mg BID PO 08/20/21 10:00 08/21/21 08:31 Levothyroxine Sodium (Synthroid) 175 mcg DAILY PO 08/21/21 09:00 08/21/21 08:30 Montelukast Sodium (Singulair) 10 mg DAILY PO 08/20/21 10:30 08/21/21 08:31 Multivitamins (Thera M Plus) 1 tab DAILY PO 08/20/21 10:30 08/21/21 08:31 Heparin Sodium (Porcine) (Heparin Sodium) 5,000 unit Q8HRS SQ 08/20/21 10:00 08/21/21 05:24 Furosemide (Lasix) 20 mg [id number] IVP 08/20/21 14:00 08/21/21 08:31 Furosemide (Lasix) 40 mg 1X ONCE IVP 08/20/21 10:00 08/20/21 10:16 DC 08/20/21 10:32 Albuterol/ Ipratropium (Duoneb) 3 ml 1X ONCE NEB 08/20/21 10:00 08/20/21 10:16 DC 08/20/21 11:55 Albuterol/ Ipratropium (Duoneb) 3 ml RTQID NEB 08/20/21 12:00 08/20/21 21:23 Budesonide (Pulmicort) 0.5 mg RTBID NEB 08/20/21 20:00 08/20/21 21:23 Nystatin (Nystop) 1 godwin BID TP 08/20/21 13:00 08/21/21 08:32 Assessment Assessment 1. Acute on chronic congestive heart failure. 2. Elevated troponin, rule out silent myocardial infarction. 3. Kidney disease, creatinine 2.3. 4. Morbid obesity. 5. Recent left knee replacement. 6. Hypertension. 7. Hyperlipidemia. 8. Hypothyroidism. 9. Acute hypoxic respiratory failure. PLAN: At this time, admit to hospital, was given IV Lasix, subcutaneous heparin 3 times daily for DVT prophylaxis. Cardiology consultation, serial cardiac enzymes and see how the patient's improves in the next 24-48 hours. Acute hypoxic respiratory failure. Likely due to CHF. O2 by n/c. Low grade fever- monitor. CT chest report pending. Consult . Acute on chronic congestive heart failure.Diuretics. Cardiology consult appreciated. CKD- Creat decreased from 2.3 to 1.9. Renal consult. Plan Plan For more details regarding further plans, please refer to the orders. Justifications for Admission Other Justification ALCIDES SWANSON MD August 21, 2021 09:33
--- NOTE | 2021-08-21 10:32 | NUR ---
1000 CALLED RADIOLOGY FOR REPORTS ON CXR AND CT CHEST DONE YESTERDAY, SHOWING [facility]READ IN [facility]. REC'D RETURN CALL AT 1030, [facility] CXR INDICATES CHF WIT INTERSTITIAL PULMONARY EDEMA, PROBABLE SMALL (L) PLEURAL EFFUSION. CT CHEST INDICATES DILATED CARDIOMEGALY, DIFFUSE RETICULAR INFILTRATES, MILD PLEURAL EFFUSIONS, LIKELY CHF.
[2021-08-21] MEDS: HYDROcodone/APAP 7.5/325MG 1 TAB TABLET PO PRN (10:41)
[2021-08-21 11:00] VITALS: BP 83/49
--- NOTE | 2021-08-21 12:06 | PDOC2 ---
CONSULT Date of Consult Date of Consult DATE: 08/21/21 TIME: 12:05 Reason for Consult Reason for Consult: HERMELINDA Identification/Chief Complaint Chief Complaint Currently No complaints Eating Lunch Source Source: Chart review History of Present Illness Reason for Visit: Patient is a 76-year-old AA female admitted with c/o Shortness of breath, congestive heart failure, acute on chronic. She had a left knee replacement 3 weeks ago at [facility] and dced to [facility] for rehab a couple of days ago . She was noticed to have more shortness of breath and swelling in lower extremities by the staff She was sent to the Emergency Room for evaluation. Her BNP was high and also D-dimer was high and had a CT scan of the chest to rule out PE was done She was given IV Lasix and she was also requiring oxygen between 2-3 liters. She denies any CP. No N/V/D. No Abdominal pain. No F/C . Denies any urinary complaints . Currently denies any SOB . States uses O2 at home prn - O2 by PR 2- 3 Lts . Denies LE edema . Currently eating lunch Past Medical History Cardiovascular: CAD, CHF, HTN, [place], Hyperlipidemia Pulmonary: COPD Psych: Anxiety Rheumatologic: Gout Renal/: Chronic renal insuff, UTI Endocrine: Hypothyroidism Family History Family History: Cancer, Diabetes Social History ALCOHOL: none Drugs: None Current Problem List Problem List Problems Medical Problems: (1) CHF exacerbation Status: Acute Current Medications Current Medications Current Medications Acetaminophen/ Hydrocodone Bitart (Lortab 5/325) 1 tab PRN Q6HRS PRN PO PAIN Last administered on 08/21/21at 08:31; Start 08/20/21 at 01:00 Acetaminophen (Tylenol) 650 mg PRN Q6HRS PRN PO MILD PAIN / TEMP > 100.3'F Last administered on 08/21/21at 05:24; Start 08/20/21 at 10:00 Aspirin (Aspirin Chewable) 81 mg DAILY PO Last administered on 08/21/21at 08:31; Start 08/20/21 at 10:30 Atorvastatin Calcium (Lipitor) 20 mg HS PO Last administered on 08/20/21at 20:29; Start 08/20/21 at 21:00 Cetirizine HCl (ZyrTEC) 10 mg DAILY PO Last administered on 5/1/22at 08:31; Start 08/21/21 at 09:00 Vitamin D (Vitamin D3) 2,000 unit DAILY PO Last administered on 08/21/21 08:31; Start 08/20/21 at 09:00 Ferrous Sulfate (Feosol) 325 mg DAILY PO Last administered on 08/21/21 08:31; Start 08/21/21 at 09:00 Gabapentin (Neurontin) 300 mg TID PO Last administered on 08/21/21 08:31; Start 08/20/21 at 14:00 Acetaminophen/ Hydrocodone Bitart (Lortab 7.5/325) 1 tab PRN Q6HRS PRN PO PAIN Last administered on 08/21/21 10:41; Start 08/20/21 at 10:00 Hydroxychloroquine Sulfate (Plaquenil) 200 mg BID PO Last administered on 08/21/21 08:31; Start 08/20/21 at 10:00 Levothyroxine Sodium (Synthroid) 175 mcg DAILY PO Last administered on 08/21/21 08:30; Start 08/21/21 at 09:00 Montelukast Sodium (Singulair) 10 mg DAILY PO Last administered on 08/21/21 08:31; Start 08/20/21 at 10:30 Multivitamins (Thera M Plus) 1 tab DAILY PO Last administered on 08/21/21 08:31; Start 08/20/21 at 10:30 Senna/Docusate Sodium (Senna Plus) 2 tab PRN BID PRN PO CONSTIPATION; Start 08/20/21 at 10:00 Non-Formulary Medication (Budesonide/ Formoterol Fumarate (Symbicort 160-4.5 Mcg Inhaler)) 2 puff BID IH ; Start 08/20/21 at 21:00; Stop 08/20/21 at 10:16; Status DC Diclofenac Sodium (Voltaren) 1 godwin PRN DAILY PRN TP PAIN; Start 08/20/21 at 10:15 Heparin Sodium (Porcine) (Heparin Sodium) 5,000 unit Q8HRS SQ Last administered on 08/21/21 05:24; Start 08/20/21 at 10:00 Furosemide (Lasix) 20 mg [id number] IVP Last administered on 08/21/21 08:31; Start 08/20/21 at 14:00 Furosemide (Lasix) 40 mg 1X ONCE IVP Last administered on 08/20/21at 10:32; Start 08/20/21 at 10:00; Stop 08/20/21 at 10:16; Status DC Albuterol/ Ipratropium (Duoneb) 3 ml 1X ONCE NEB Last administered on 08/20/21at 11:55; Start 08/20/21 at 10:00; Stop 08/20/21 at 10:16; Status DC Albuterol/ Ipratropium (Duoneb) 3 ml RTQID NEB Last administered on 08/20/21at 21:23; Start 08/20/21 at 12:00 Budesonide (Pulmicort) 0.5 mg RTBID NEB Last administered on 08/20/21at 21:23; Start 08/20/21 at 20:00 Nystatin (Nystop) 1 godwin BID TP Last administered on 08/21/21at 08:32; Start 08/20/21 at 13:00 Active Scripts Active Thera-M Tablet (Multivits,Ca,Minerals/Iron/Fa) 1 Each Tablet 1 Tab PO DAILY 30 Days Stool Soft-Stimulant Lax Tab (Sennosides/Docusate Sodium) 1 Each Tablet 2 Tab PO PRN BID PRN 30 Days Acetaminophen 325 Mg Tablet 650 Mg PO PRN Q6HRS PRN 7 Days Reported Potassium Chloride (Potassium Chloride) 20 Meq Tablet.er 20 Meq PO DAILY Losartan Potassium 50 Mg Tablet 25 Mg PO DAILY Colcrys (Colchicine) 0.6 Mg Tablet 1 Tab PO DAILY 30 Days Clopidogrel (Clopidogrel Bisulfate) 75 Mg Tablet 1 Tab PO DAILY Atenolol 25 Mg Tablet 1 Tab PO DAILY Levothyroxine Sodium 175 Mcg Tablet 1 Tab PO DAILY Aspirin 81 Mg Tab.chew 81 Mg PO DAILY Diclofenac Sodium 100 Gm Gel..gram. 100 Gm TP PRN PRN Hydroxychloroquine Sulfate 200 Mg Tablet 1 Tab PO BID Vitamin D3 (Cholecalciferol (Vitamin D3)) 1,000 Unit Tablet 2,000 Unit PO DAILY Atorvastatin Calcium 20 Mg Tablet 20 Mg PO HS Ferrous Sulfate 325 Mg Tablet 325 Mg PO DAILY Hydrocodone-Apap 7.5-325 (Hydrocodone Bit/Acetaminophen) 1 Each Tablet 1 Tab PO PRN Q6HRS PRN Symbicort 160-4.5 Mcg Inhaler (Budesonide/Formoterol Fumarate) 10.2 Gm Hfa.aer.ad 2 Puff IH BID Singulair Tablet (Montelukast Sodium) 10 Mg Tablet 1 Tab PO DAILY Cetirizine Hcl 10 Mg Tablet 1 Tab PO DAILY Gabapentin (Gabapentin) 300 Mg Capsule 1 Cap PO TID Allergies Allergies: Coded Allergies: No Known Drug Allergies (Unverified , 07/27/21) ROS Review of System As per HPI, rest of the ROS is negative Physical Exam Physical Exam GENERAL: NAD, Morbidly obese , eating Lunch HEENT: OM moist, On o2 by NC NECK: Supple. CV : S1, S2. No murmurs. LUNGS: CTA Bilat, Decreased at bases , Non labored ABDOMEN: Obese. NT : No Borden. EXTREMITIES: recent left knee replacement . trace -1 + LE edema NEUROLOGIC: Moving all extremities. No focal deficits noted. Vital Signs Vital Signs Date Time Temp Pulse Resp B/P (MAP) Pulse Ox O2 Delivery O2 Flow Rate FiO2 08/21/21 11:33 94 Nasal Cannula 3.0 08/21/21 11:11 16 08/21/21 07:00 98.1 89 108/62 (77) 98.1 Assessment & Plan HERMELINDA - Cardiorenal , Creatinine trending down. UA unremarkable. Currently on diuretics, Cardiology managing . Avoid nephrotoxins, Supportive care , I/O. daily standing weight CKD -Baseline Creatinine 1.4-1.9 with intermittent HERMELINDA. Patient states she recalls she has been at our office once and has follow up appt later this week. Will Review records from office tomorrow Renal Cysts -US 05/2021 -multiple simple appearing right renal cysts, the largest of which measures 3.4 cm. Acute on chronic congestive heart failure On Lasix IV . Possible RHC tomorrow Morbid obesity. Recent left knee replacement. Hypertension- BP low currently , Monitor closely Anemia- Hgb normal Labs Labs Laboratory Tests Test 08/19/21 17:55 08/20/21 14:00 08/20/21 19:11 08/21/21 01:50 White Blood Count 9.3 x10^3/uL (4.0-11.0) Red Blood Count 3.45 x10^6/uL (3.50-5.40) Hemoglobin 10.0 g/dL (12.0-15.5) Hematocrit 31.4 % (36.0-47.0) Mean Corpuscular Volume 91 fL (79-100) Mean Corpuscular Hemoglobin 29 pg (25-35) Mean Corpuscular Hemoglobin Concent 32 g/dL (31-37) Red Cell Distribution Width 16.5 % (11.5-14.5) Platelet Count 290 x10^3/uL (140-400) Neutrophils (%) (Auto) 74 % (31-73) Lymphocytes (%) (Auto) 17 % (24-48) Monocytes (%) (Auto) 7 % (0-9) Eosinophils (%) (Auto) 1 % (0-3) Basophils (%) (Auto) 1 % (0-3) Neutrophils # (Auto) 6.9 x10^3/uL (1.8-7.7) Lymphocytes # (Auto) 1.6 x10^3/uL (1.0-4.8) Monocytes # (Auto) 0.6 x10^3/uL (0.0-1.1) Eosinophils # (Auto) 0.1 x10^3/uL (0.0-0.7) Basophils # (Auto) 0.1 x10^3/uL (0.0-0.2) D-Dimer (Kanika) 10.35 ug/mlFEU (0.00-0.50) Sodium Level 137 mmol/L (136-145) Potassium Level 4.9 mmol/L (3.5-5.1) Chloride Level 103 mmol/L (98-107) Carbon Dioxide Level 29 mmol/L (21-32) Anion Gap 5 (6-14) Blood Urea Nitrogen 27 mg/dL (7-20) Creatinine 2.3 mg/dL (0.6-1.0) Estimated GFR (Cockcroft-Gault) 24.9 BUN/Creatinine Ratio 12 (6-20) Glucose Level 85 mg/dL (70-99) Lactic Acid Level 1.5 mmol/L (0.4-2.0) Calcium Level 8.7 mg/dL (8.5-10.1) Magnesium Level 2.1 mg/dL (1.8-2.4) Total Bilirubin 1.0 mg/dL (0.2-1.0) Aspartate Amino Transf (AST/SGOT) 117 U/L (15-37) Alanine Aminotransferase (ALT/SGPT) 100 U/L (14-59) Alkaline Phosphatase 99 U/L (46-116) Troponin I High Sensitivity 226 ng/L (4-50) 191 ng/L (4-50) 179 ng/L (4-50) OY-Hld-I-Type Natriuretic Peptide 67421 pg/mL (0-449) Total Protein 6.6 g/dL (6.4-8.2) Albumin 2.3 g/dL (3.4-5.0) Albumin/Globulin Ratio 0.5 (1.0-1.7) Urine Collection Type Unknown Urine Color (Auto) Colorless Urine Turbidity Clear Urine pH (Auto) 6.5 (<5.0-8.0) Urine Specific Britton 1.006 (1.000-1.030) Urine Protein (Auto) Negative mg/dL (Negative) Urine Glucose (Auto)(UA) Negative mg/dL (Negative) Urine Ketones (Auto) Negative mg/dL (Negative) Urine Blood (Auto) Negative (Negative) Urine Nitrite (Auto) Negative (Negative) Urine Bilirubin (Auto) Negative (Negative) Urine Urobilinogen (Auto) Normal mg/dL (Normal) Urine Leukocyte Esterase (Auto) Negative (Negative) Urine RBC 0 /HPF (0-2) Urine WBC 0 /HPF (0-4) Urine Squamous Epithelial Cells Few /LPF Urine Bacteria Mod /HPF (0-FEW) Test 08/21/21 04:00 White Blood Count 9.7 x10^3/uL (4.0-11.0) Red Blood Count 3.98 x10^6/uL (3.50-5.40) Hemoglobin 12.4 g/dL (12.0-15.5) Hematocrit 37.0 % (36.0-47.0) Mean Corpuscular Volume 93 fL (79-100) Mean Corpuscular Hemoglobin 31 pg (25-35) Mean Corpuscular Hemoglobin Concent 34 g/dL (31-37) Red Cell Distribution Width 14.6 % (11.5-14.5) Platelet Count 254 x10^3/uL (140-400) Neutrophils (%) (Auto) 78 % (31-73) Lymphocytes (%) (Auto) 8 % (24-48) Monocytes (%) (Auto) 11 % (0-9) Eosinophils (%) (Auto) 2 % (0-3) Basophils (%) (Auto) 1 % (0-3) Neutrophils # (Auto) 7.5 x10^3/uL (1.8-7.7) Lymphocytes # (Auto) 0.8 x10^3/uL (1.0-4.8) Monocytes # (Auto) 1.1 x10^3/uL (0.0-1.1) Eosinophils # (Auto) 0.2 x10^3/uL (0.0-0.7) Basophils # (Auto) 0.1 x10^3/uL (0.0-0.2) Sodium Level 142 mmol/L (136-145) Potassium Level 4.2 mmol/L (3.5-5.1) Chloride Level 103 mmol/L (98-107) Carbon Dioxide Level 31 mmol/L (21-32) Anion Gap 8 (6-14) Blood Urea Nitrogen 23 mg/dL (7-20) Creatinine 1.9 mg/dL (0.6-1.0) Estimated GFR (Cockcroft-Gault) 31.1 Glucose Level 89 mg/dL (70-99) Calcium Level 8.2 mg/dL (8.5-10.1) Troponin I High Sensitivity 179 ng/L (4-50) Laboratory Tests Test 08/20/21 14:00 08/20/21 19:11 08/21/21 01:50 08/21/21 04:00 Troponin I High Sensitivity 191 ng/L (4-50) 179 ng/L (4-50) 179 ng/L (4-50) Urine Collection Type Unknown Urine Color (Auto) Colorless Urine Turbidity Clear Urine pH (Auto) 6.5 (<5.0-8.0) Urine Specific Britton 1.006 (1.000-1.030) Urine Protein (Auto) Negative mg/dL (Negative) Urine Glucose (Auto)(UA) Negative mg/dL (Negative) Urine Ketones (Auto) Negative mg/dL (Negative) Urine Blood (Auto) Negative (Negative) Urine Nitrite (Auto) Negative (Negative) Urine Bilirubin (Auto) Negative (Negative) Urine Urobilinogen (Auto) Normal mg/dL (Normal) Urine Leukocyte Esterase (Auto) Negative (Negative) Urine RBC 0 /HPF (0-2) Urine WBC 0 /HPF (0-4) Urine Squamous Epithelial Cells Few /LPF Urine Bacteria Mod /HPF (0-FEW) White Blood Count 9.7 x10^3/uL (4.0-11.0) Red Blood Count 3.98 x10^6/uL (3.50-5.40) Hemoglobin 12.4 g/dL (12.0-15.5) Hematocrit 37.0 % (36.0-47.0) Mean Corpuscular Volume 93 fL (79-100) Mean Corpuscular Hemoglobin 31 pg (25-35) Mean Corpuscular Hemoglobin Concent 34 g/dL (31-37) Red Cell Distribution Width 14.6 % (11.5-14.5) Platelet Count 254 x10^3/uL (140-400) Neutrophils (%) (Auto) 78 % (31-73) Lymphocytes (%) (Auto) 8 % (24-48) Monocytes (%) (Auto) 11 % (0-9) Eosinophils (%) (Auto) 2 % (0-3) Basophils (%) (Auto) 1 % (0-3) Neutrophils # (Auto) 7.5 x10^3/uL (1.8-7.7) Lymphocytes # (Auto) 0.8 x10^3/uL (1.0-4.8) Monocytes # (Auto) 1.1 x10^3/uL (0.0-1.1) Eosinophils # (Auto) 0.2 x10^3/uL (0.0-0.7) Basophils # (Auto) 0.1 x10^3/uL (0.0-0.2) Sodium Level 142 mmol/L (136-145) Potassium Level 4.2 mmol/L (3.5-5.1) Chloride Level 103 mmol/L (98-107) Carbon Dioxide Level 31 mmol/L (21-32) Anion Gap 8 (6-14) Blood Urea Nitrogen 23 mg/dL (7-20) Creatinine 1.9 mg/dL (0.6-1.0) Estimated GFR (Cockcroft-Gault) 31.1 Glucose Level 89 mg/dL (70-99) Calcium Level 8.2 mg/dL (8.5-10.1) Review All relevant outside records, renal labs, imaging studies, telemetry/EKG's were reviewed. Images Images CXr pending ELIDA DELCID MD August 21, 2021 12:05
[2021-08-21 15:00] VITALS: BP 107/48
[2021-08-21 19:50] VITALS: BP 131/60
[2021-08-21] MEDS: ATORVASTATIN CALCIUM 20 MG TABLET PO SCH (21:11)
--- NOTE | 2021-08-21 22:39 | PDOC ---
CARDIOLOGY PROGRESS NOTE SUBJECTIVE: No new issues. OBJECTIVE: Vital Signs/I&O: Vital Signs Date Time Temp Pulse Resp B/P (MAP) Pulse Ox O2 Delivery O2 Flow Rate FiO2 08/21/21 19:50 97.7 95 16 131/60 (83) 98 Nasal Cannula 3.0 97.7 I & O 08/20/21 08/20/21 08/21/21 15:00 23:00 07:00 Intake Total 400 ml 500 ml Output Total 600 ml 950 ml Balance -200 ml -450 ml Objective: GEN.: No apparent distress. Alert and oriented. HEENT: Head is normocephalic, atraumatic NECK: Supple. LUNGS: Clear to auscultation. HEART: RRR, S1, S2 present. Peripheral pulses intact ABDOMEN: Soft, nontender. Positive bowel sounds. EXTREMITIES: Without any cyanosis.2+edema NEUROLOGIC: Normal speech, normal tone PSYCHIATRIC: Normal affect, normal mood. SKIN: No ulcerations CURRENT MEDICATIONS: Current Medications Medications (Trade) Dose Ordered Sig/Negro Route PRN Reason Start Time Stop Time Status Last Admin Dose Admin Cetirizine HCl (ZyrTEC) 10 mg DAILY PO 08/21/21 09:00 08/21/21 08:31 Ferrous Sulfate (Feosol) 325 mg DAILY PO 08/21/21 09:00 08/21/21 08:31 Levothyroxine Sodium (Synthroid) 175 mcg DAILY PO 08/21/21 09:00 08/21/21 08:30 DIAGNOSTIC TESTING: labs reviewed Labs: Laboratory Tests 08/21/21 04:00 Laboratory Tests Test 08/21/21 01:50 08/21/21 04:00 Troponin I High Sensitivity 179 ng/L (4-50) H 179 ng/L (4-50) H White Blood Count 9.7 x10^3/uL (4.0-11.0) Red Blood Count 3.98 x10^6/uL (3.50-5.40) Hemoglobin 12.4 g/dL (12.0-15.5) Hematocrit 37.0 % (36.0-47.0) Mean Corpuscular Volume 93 fL (79-100) Mean Corpuscular Hemoglobin 31 pg (25-35) Mean Corpuscular Hemoglobin Concent 34 g/dL (31-37) Red Cell Distribution Width 14.6 % (11.5-14.5) H Platelet Count 254 x10^3/uL (140-400) Neutrophils (%) (Auto) 78 % (31-73) H Lymphocytes (%) (Auto) 8 % (24-48) L Monocytes (%) (Auto) 11 % (0-9) H Eosinophils (%) (Auto) 2 % (0-3) Basophils (%) (Auto) 1 % (0-3) Neutrophils # (Auto) 7.5 x10^3/uL (1.8-7.7) Lymphocytes # (Auto) 0.8 x10^3/uL (1.0-4.8) L Monocytes # (Auto) 1.1 x10^3/uL (0.0-1.1) Eosinophils # (Auto) 0.2 x10^3/uL (0.0-0.7) Basophils # (Auto) 0.1 x10^3/uL (0.0-0.2) Sodium Level 142 mmol/L (136-145) Potassium Level 4.2 mmol/L (3.5-5.1) Chloride Level 103 mmol/L (98-107) Carbon Dioxide Level 31 mmol/L (21-32) Anion Gap 8 (6-14) Blood Urea Nitrogen 23 mg/dL (7-20) H Creatinine 1.9 mg/dL (0.6-1.0) H Estimated GFR (Cockcroft-Gault) 31.1 Glucose Level 89 mg/dL (70-99) Calcium Level 8.2 mg/dL (8.5-10.1) L ASSESSMENT: 1. Diastolic HF 2. Morbid obesity PLAN: 1. Continue medical therapy. Rehab placement. Needs more aggressive diuresis. Will discuss with nephrology. Justicifation of Admission Dx: Justifications for Admission: Justification of Admission Dx: Yes EDGAR FERGUSON MD August 21, 2021 22:39
[2021-08-21 22:42] VITALS: BP 142/64
[2021-08-22 02:53] VITALS: BP 136/70
[2021-08-22 04:33] LABS: BASO # 0.1 x10^3/uL (0.0-0.2); BASO % 1 % (0-3); EOS # 0.3 x10^3/uL (0.0-0.7); EOS % 4 % (0-3); HEMATOCRIT 30.4 % (36.0-47.0); LYMPH # 1.5 x10^3/uL (1.0-4.8); LYMPH % 17 % (24-48); MEAN CORPUSCULAR HEMOGLOBIN 29 pg (25-35); MEAN CORPUSCULAR HGB CONC 33 g/dL (31-37); MEAN CORPUSCULAR VOLUME 90 fL (79-100); MONO # 0.7 x10^3/uL (0.0-1.1); MONO % 8 % (0-9); NEUT # 6.2 x10^3/uL (1.8-7.7); NEUT % 71 % (31-73); PLATELET COUNT 246 x10^3/uL (140-400); WHITE BLOOD COUNT 8.7 x10^3/uL (4.0-11.0)
[2021-08-22 05:13] LABS: CALCIUM 8.4 mg/dL (8.5-10.1); CREATININE 1.5 mg/dL (0.6-1.0); GFR 40.9; POTASSIUM 4.3 mmol/L (3.5-5.1)
--- NOTE | 2021-08-22 06:09 | EKG ---
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
[2021-08-22 07:00] VITALS: BP 127/70
--- NOTE | 2021-08-22 07:21 | RAD ---
EXAMINATION: Chest radiograph. VIEWS: Single AP view of the chest COMPARISON: None INDICATION:76 years, Female, no indication given. FINDINGS: Heart is enlarged. Central pulmonary vasculature is increased. Patchy bilateral opacities. Possible s mall left pleural effusion. No pneumothorax. No acute osseous process. IMPRESSION: Findings favor congestive heart failure with interstitial pulmonary edema and probable small left ple ural effusion. Electronically signed by: Renzo Castillo DO (08/19/2021 7:35 PM) [facility]
--- NOTE | 2021-08-22 07:22 | RAD ---
CT of the chest without contrast: Clinical History: Short of air. Axial helical images of the chest were obtained without contrast. FINDINGS: There is mild pleural effusions bilaterally left worse than right. The heart is moderately dilated. M ild diffuse reticular opacities throughout the lungs. There is coronary calcifications. Impression: 1. Dilated cardiomegaly. 2. Diffuse reticular infiltrates and mild pleural effusions likely CHF. PQRS Compliance Statement: One or more of the following individualized dose reduction techniques were utilized for this examinat ion: 1. Automated exposure control 2. Adjustment of the mA and/or kV according to patient size 3. Use of iterative reconstruction technique Electronically signed by: Bud Huitron III, MD (08/19/2021 8:00 PM) [facility]
[2021-08-22] MEDS: IPRATRPIUM/ALBUTEROL 0.5/2.5MG 3 ML NEBU. NEB SCH ×4 (07:42→21:07)
[2021-08-22] MEDS: BUDESONIDE 0.5 MG/2 ML NEBU. NEB SCH ×2 (07:42→21:07)
[2021-08-22] MEDS: FUROSEMIDE 20 MG/2 ML VIAL. IVP SCH ×2 (08:01→14:42)
[2021-08-22] MEDS: LEVOTHYROXINE 175 MCG TABLET PO SCH (08:02)
[2021-08-22] MEDS: FERROUS SULFATE 325 MG TABLET. PO SCH (08:02)
[2021-08-22] MEDS: MULTIVITAMIN with MINERAL TABLET. PO SCH (08:02)
[2021-08-22] MEDS: ASPIRIN CHEWABLE 81 MG TABLET. PO SCH (08:02)
[2021-08-22] MEDS: CETIRIZINE HCL 10 MG TABLET. PO SCH (08:02)
[2021-08-22] MEDS: GABAPENTIN 300 MG CAPSULE. PO SCH ×3 (08:02→21:46)
[2021-08-22] MEDS: CHOLECALCIFEROL (VITAMIN D3) 1,000 UNIT TABLET PO SCH (08:02)
[2021-08-22] MEDS: MONTELUKAST SODIUM 10 MG TABLET. PO SCH (08:02)
[2021-08-22] MEDS: HYDROXYCHLOROQUINE 200 MG TABLET PO SCH ×2 (08:03→21:46)
[2021-08-22] MEDS: HEPARIN for SUB-Q USE 5,000 UNIT/ML VIAL. SQ SCH ×3 (08:06→21:47)
[2021-08-22] MEDS: NYSTATIN TOPICAL POWDER 15GM BOTTLE. TP SCH ×2 (08:08→21:52)
--- NOTE | 2021-08-22 09:28 | PDOC ---
DATE OF SERVICE DATE: 08/22/21 TIME: 09:28 SUBJECTIVE ROS Working with PT No complaints, denies SOB OBJECTIVE Vital Signs Vital Signs Date Time Temp Pulse Resp B/P (MAP) Pulse Ox O2 Delivery O2 Flow Rate FiO2 08/22/21 07:42 97 Nasal Cannula 5.0 08/22/21 07:00 99.1 87 19 127/70 (89) 99.1 I & 0 Intake and Output 08/22/21 07:00 Intake Total 1090 ml Output Total 1500 ml Balance -410 ml Intake Oral 1090 ml Output Urine Total 1500 ml PHYSICAL EXAM Physical Exam GENERAL: NAD, Morbidly obese HEENT: OM moist, On o2 by NC NECK: Supple. CV : S1, S2. No murmurs. LUNGS: CTA Bilat, Decreased at bases , Non labored ABDOMEN: Obese. NT : No Borden. EXTREMITIES: recent left knee replacement . trace -1 + LE edema NEUROLOGIC: Moving all extremities. No focal deficits noted. DIAGNOSIS/ASSESSMENT Assessment & Plan HERMELINDA - Cardiorenal , Creatinine trending down. UA unremarkable.diuretics, Cardiology managing . Avoid nephrotoxins, Supportive care ,. daily standing weight CKD -Baseline Creatinine 1.4-1.9 with intermittent HERMELINDA. Seen as OP in our office in May 2021 as Initial consult . Keep fu appt after dc Renal Cysts -US 05/2021 -multiple simple appearing right renal cysts, the largest of which measures 3.4 cm. Acute on chronic congestive heart failure On Lasix IV . Possible RHC tomorrow Morbid obesity. Recent left knee replacement. Hypertension- BP low currently , Monitor closely Anemia- Hgb normal COMMENT/RELEVANT DATA Meds Current Medications Medications (Trade) Dose Ordered Sig/Negro Start Time Stop Time Status Last Admin Dose Admin Acetaminophen (Tylenol) 650 mg PRN Q6HRS PRN 08/20/21 10:00 08/21/21 21:11 650 MG Acetaminophen/ Hydrocodone Bitart (Lortab 5/325) 1 tab PRN Q6HRS PRN 08/20/21 01:00 08/21/21 08:31 1 TAB Acetaminophen/ Hydrocodone Bitart (Lortab 7.5/325) 1 tab PRN Q6HRS PRN 08/20/21 10:00 08/21/21 10:41 1 TAB Albuterol/ Ipratropium (Duoneb) 3 ml RTQID 08/20/21 12:00 08/22/21 07:42 3 ML Aspirin (Aspirin Chewable) 81 mg DAILY 08/20/21 10:30 08/22/21 08:02 81 MG Atorvastatin Calcium (Lipitor) 20 mg HS 08/20/21 21:00 08/21/21 21:11 20 MG Budesonide (Pulmicort) 0.5 mg RTBID 08/20/21 20:00 08/22/21 07:42 0.5 MG Cetirizine HCl (ZyrTEC) 10 mg DAILY 08/21/21 09:00 08/22/21 08:02 10 MG Diclofenac Sodium (Voltaren) 1 godwin PRN DAILY PRN 08/20/21 10:15 Ferrous Sulfate (Feosol) 325 mg DAILY 08/21/21 09:00 08/22/21 08:02 325 MG Furosemide (Lasix) 40 mg 1X ONCE 08/20/21 10:00 08/20/21 10:16 DC 08/20/21 10:32 40 MG Gabapentin (Neurontin) 300 mg TID 08/20/21 14:00 08/22/21 08:02 300 MG Heparin Sodium (Porcine) (Heparin Sodium) 5,000 unit Q8HRS 08/20/21 10:00 08/22/21 08:06 5,000 UNIT Hydroxychloroquine Sulfate (Plaquenil) 200 mg BID 08/20/21 10:00 08/22/21 08:03 200 MG Levothyroxine Sodium (Synthroid) 175 mcg DAILY 08/21/21 09:00 08/22/21 08:02 175 MCG Montelukast Sodium (Singulair) 10 mg DAILY 08/20/21 10:30 08/22/21 08:02 10 MG Multivitamins (Thera M Plus) 1 tab DAILY 08/20/21 10:30 08/22/21 08:02 1 TAB Non-Formulary Medication (Budesonide/ Formoterol Fumarate (Symbicort 160-4.5 Mcg Inhaler)) 2 puff BID 08/20/21 21:00 08/20/21 10:16 DC Nystatin (Nystop) 1 godwin BID 08/20/21 13:00 08/22/21 08:08 1 GODWIN Senna/Docusate Sodium (Senna Plus) 2 tab PRN BID PRN 08/20/21 10:00 Vitamin D (Vitamin D3) 2,000 unit DAILY 08/20/21 09:00 08/22/21 08:02 2,000 UNIT Lab Laboratory Tests Test 08/22/21 03:50 White Blood Count 8.7 x10^3/uL (4.0-11.0) Red Blood Count 3.40 x10^6/uL (3.50-5.40) Hemoglobin 10.0 g/dL (12.0-15.5) Hematocrit 30.4 % (36.0-47.0) Mean Corpuscular Volume 90 fL (79-100) Mean Corpuscular Hemoglobin 29 pg (25-35) Mean Corpuscular Hemoglobin Concent 33 g/dL (31-37) Red Cell Distribution Width 17.0 % (11.5-14.5) Platelet Count 246 x10^3/uL (140-400) Neutrophils (%) (Auto) 71 % (31-73) Lymphocytes (%) (Auto) 17 % (24-48) Monocytes (%) (Auto) 8 % (0-9) Eosinophils (%) (Auto) 4 % (0-3) Basophils (%) (Auto) 1 % (0-3) Neutrophils # (Auto) 6.2 x10^3/uL (1.8-7.7) Lymphocytes # (Auto) 1.5 x10^3/uL (1.0-4.8) Monocytes # (Auto) 0.7 x10^3/uL (0.0-1.1) Eosinophils # (Auto) 0.3 x10^3/uL (0.0-0.7) Basophils # (Auto) 0.1 x10^3/uL (0.0-0.2) Sodium Level 140 mmol/L (136-145) Potassium Level 4.3 mmol/L (3.5-5.1) Chloride Level 101 mmol/L (98-107) Carbon Dioxide Level 32 mmol/L (21-32) Anion Gap 7 (6-14) Blood Urea Nitrogen 19 mg/dL (7-20) Creatinine 1.5 mg/dL (0.6-1.0) Estimated GFR (Cockcroft-Gault) 40.9 Glucose Level 86 mg/dL (70-99) Calcium Level 8.4 mg/dL (8.5-10.1) Results All relevant outside records, renal labs, imaging studies, telemetry/EKG's were reviewed. Justicifation of Admission Dx: Justifications for Admission: Justification of Admission Dx: Yes ELIDA DELCID MD August 22, 2021 09:28
[2021-08-22] MEDS ORDERED: IPRA3AMP29 NEB (09:31)
[2021-08-22] MEDS ORDERED: HEPA50003 SQ (09:31)
[2021-08-22] MEDS ORDERED: NYST15PO2 TP (09:31)
[2021-08-22] MEDS ORDERED: FURO40TA4 PO (09:31)
--- NOTE | 2021-08-22 09:34 | SNU/HH DC ---
DISCHARGE ORDERS DISCHARGE INFORMATION: FINAL DIAGNOSIS Problems Medical Problems: (1) CHF exacerbation Status: Acute CONDITION ON DISCHARGE: Stable CARE HOME: SNF STAY <30 DAYS: Yes POST DISCHARGE ORDERS: ACTIVITY ORDERS: Activity as tolerated (with PT/OT/walker) WEIGHT BEARING STATUS: As tolerated DIET AFTER DISCHARGE: Cardiac WOUND/INCISION CARE: Change dressing OTHER ORDERS: Fall Precautions CHECKS AFTER DISCHARGE: CHECKS AFTER DISCHARGE: Check blood press - daily, Weigh Yourself Daily FOLLOW-UP: PHYSICIAN FOLLOW-UP: Dr.Pratip Swanson in 1 week after [facility]ge from the [facility] ADDITIONAL FOLLOW-UP: [employer] LAB ORDERS FOR FOLLOW-UP: CBC,CMP twice a week TREATMENT/EQUIPMENT ORDERS: ADAPTIVE EQUIPMENT NEEDED: Front wheeled walker RESPIRATORY EQUIPMENT NEEDED: Oxygen (5 lit/min) Physical Therapy For: Evalulation/Treatment Occupational Therapy For: Evaluation/Treatment DISCHARGE MEDICATIONS: Home Meds Active Scripts Furosemide (FUROSEMIDE) 40 Mg Tablet, 40 MG PO BID for CHF for 30 Days, #60 TAB Prov:ALCIDES SWANSON MD 08/22/21 Nystatin (NYAMYC) 15 Gm Powder, 1 CAROLINA TP BID for skin candidiasis for 14 Days, #200 MISC Prov:ALCIDES SWANSON MD 08/22/21 Heparin Sodium,Porcine (HEPARIN SODIUM) 5,000 Unit/1 Ml Vial, 5000 UNIT SQ Q8HRS for DVT prophylaxis for 14 Days, #42 EACH Prov:ALCIDES SWANSON MD 08/22/21 Ipratropium/Albuterol Sulfate (DUONEB 0.5-3(2.5) MG/3 ML) 3 Ml Ampul.neb, 3 ML NEB RTQID for asthma for 30 Days, #120 EACH Prov:ALCIDES SWANSON MD 08/22/21 Multivits,Ca,Minerals/Iron/Fa (THERA-M TABLET) 1 Each Tablet, 1 TAB PO DAILY for anemia for 30 Days, #30 TAB Prov:ALCIDES SWANSON MD 07/29/21 Sennosides/Docusate Sodium (STOOL SOFT-STIMULANT LAX TAB) 1 Each Tablet, 2 TAB PO PRN BID PRN for CONSTIPATION for 30 Days, #60 TAB Prov:ALCIDES SWANSON MD 12/03/20 Acetaminophen (ACETAMINOPHEN) 325 Mg Tablet, 650 MG PO PRN Q6HRS PRN for MILD PAIN / TEMP > 100.3'F for 7 Days, #28 TAB Prov:ALCIDES SWANSON MD 12/03/20 Reported Medications Potassium Chloride (POTASSIUM CHLORIDE ) 20 Meq Tablet.er, 20 MEQ PO DAILY for SUPPLEMENT, TAB.SR 08/20/21 Losartan Potassium (LOSARTAN POTASSIUM) 50 Mg Tablet, 25 MG PO DAILY for HYPERTENSION, TAB 08/20/21 Colchicine (COLCRYS) 0.6 Mg Tablet, 1 TAB PO DAILY for gout pain for 30 Days, #30 TAB 0 Refills 08/20/21 Clopidogrel Bisulfate (CLOPIDOGREL) 75 Mg Tablet, 1 TAB PO DAILY for prevention, #90 TAB 1 Refill 08/20/21 Atenolol (ATENOLOL) 25 Mg Tablet, 1 TAB PO DAILY for htn, #30 TAB 5 Refills 08/20/21 Levothyroxine Sodium (LEVOTHYROXINE SODIUM) 175 Mcg Tablet, 1 TAB PO DAILY for THYROID, #30 TAB 5 Refills 07/27/21 Aspirin (ASPIRIN) 81 Mg Tab.chew, 81 MG PO DAILY for DVT, TAB.CHEW 11/30/20 Diclofenac Sodium (DICLOFENAC SODIUM) 100 Gm Gel..gram., 100 GM TP PRN PRN for PAIN, EACH 07/09/20 Hydroxychloroquine Sulfate (HYDROXYCHLOROQUINE SULFATE) 200 Mg Tablet, 1 TAB PO BID for anticoag, #180 TAB 1 Refill 07/09/20 Cholecalciferol (Vitamin D3) (VITAMIN D3) 1,000 Unit Tablet, 2000 UNIT PO DAILY, TAB 01/24/18 Atorvastatin Calcium (ATORVASTATIN CALCIUM) 20 Mg Tablet, 20 MG PO HS for FOR CHOLESTEROL, #30 TAB 0 Refills 01/24/18 Ferrous Sulfate (FERROUS SULFATE) 325 Mg Tablet, 325 MG PO DAILY, TAB 02/09/17 Hydrocodone Bit/Acetaminophen (HYDROCODONE-APAP 7.5-325 ) 1 Each Tablet, 1 TAB PO PRN Q6HRS PRN for PAIN, TAB 0 Refills 02/09/17 Budesonide/Formoterol Fumarate (SYMBICORT 160-4.5 MCG INHALER) 10.2 Gm Hfa.ae r.ad, 2 PUFF IH BID, #10.6 GM 3 Refills 02/09/17 Montelukast Sodium (SINGULAIR TABLET ) 10 Mg Tablet, 1 TAB PO DAILY, #90 TAB 1 Refill 04/27/14 Cetirizine Hcl (CETIRIZINE HCL) 10 Mg Tablet, 1 TAB PO DAILY, #30 TAB 5 Refills 04/27/14 Gabapentin (GABAPENTIN ) 300 Mg Capsule, 1 CAP PO TID, #90 CAP 5 Refills 04/27/14 ALCIDES SWANSON MD August 22, 2021 09:34
--- NOTE | 2021-08-22 09:39 | PDOC3 ---
IM DISCHARGE SUMMARY Date of Admission Date of Admission Date of Admission: Aug 19, 2021 at 18:50 Date of Discharge Date of Discharge August Primary Diagnosis Primary Diagnosis 1. Acute on chronic congestive heart failure. 2. Elevated troponin, rule out silent myocardial infarction. 3. Kidney disease, creatinine 2.3. 4. Morbid obesity. 5. Recent left knee replacement. 6. Hypertension. 7. Hyperlipidemia. 8. Hypothyroidism. 9. Acute hypoxic respiratory failure. Consults Consults Ricky Mann MD; Corona Metzger MD; Albino Morrell MD; Estrella Trujillo MD; rIene Katz MD Labs Labs Laboratory Tests Test 08/22/21 03:50 White Blood Count 8.7 x10^3/uL (4.0-11.0) Red Blood Count 3.40 x10^6/uL (3.50-5.40) L Hemoglobin 10.0 g/dL (12.0-15.5) L Hematocrit 30.4 % (36.0-47.0) L Mean Corpuscular Volume 90 fL (79-100) Mean Corpuscular Hemoglobin 29 pg (25-35) Mean Corpuscular Hemoglobin Concent 33 g/dL (31-37) Red Cell Distribution Width 17.0 % (11.5-14.5) H Platelet Count 246 x10^3/uL (140-400) Neutrophils (%) (Auto) 71 % (31-73) Lymphocytes (%) (Auto) 17 % (24-48) L Monocytes (%) (Auto) 8 % (0-9) Eosinophils (%) (Auto) 4 % (0-3) H Basophils (%) (Auto) 1 % (0-3) Neutrophils # (Auto) 6.2 x10^3/uL (1.8-7.7) Lymphocytes # (Auto) 1.5 x10^3/uL (1.0-4.8) Monocytes # (Auto) 0.7 x10^3/uL (0.0-1.1) Eosinophils # (Auto) 0.3 x10^3/uL (0.0-0.7) Basophils # (Auto) 0.1 x10^3/uL (0.0-0.2) Sodium Level 140 mmol/L (136-145) Potassium Level 4.3 mmol/L (3.5-5.1) Chloride Level 101 mmol/L (98-107) Carbon Dioxide Level 32 mmol/L (21-32) Anion Gap 7 (6-14) Blood Urea Nitrogen 19 mg/dL (7-20) Creatinine 1.5 mg/dL (0.6-1.0) H Estimated GFR (Cockcroft-Gault) 40.9 Glucose Level 86 mg/dL (70-99) Calcium Level 8.4 mg/dL (8.5-10.1) L Laboratory Tests 08/22/21 03:50 Laboratory Tests 08/22/21 03:50 Brief hospital course Brief hospital course The patient is a 76-year-old female. The patient had a left knee replacement 3 weeks ago and at [facility] when she went to [facility] for rehab from [facility]. She was discharged home a couple of days ago. She was noticed to have more shortness of breath and swelling in lower extremities. The patient was sent to the Emergency Room for evaluation. Her BNP was high and also D-dimer was high and had a CT scan of the chest to rule out PE was done, report is pending and the patient was admitted to the hospital, was given IV Lasix and she was also requiring oxygen 5 liters/min. At home she was on Oxygen 2-3 lit/min. For more details regarding the past history, family history, social history, surgical history and other details, please refer to the H&P. At this time, admit to hospital, was given IV Lasix, subcutaneous heparin 3 times daily for DVT prophylaxis. Cardiology consultation, serial cardiac enzymes. Acute hypoxic respiratory failure. Likely due to CHF. O2 by n/c. Low grade fever- monitor. CT chest report - CHF, no PE.. Consult . Acute on chronic congestive heart failure.Diuretics. Cardiology consult appre ciated. CKD- Creat decreased from 2.3 to 1.5. Renal consult. Clinically improving. Diuresing with IV Lasix. Discharge to SNF when ok with specialists. D/w . Change to Lasix 40 mb bid on discharge. Medications Medications reviewed and reconciled for discharge. Home Meds Active Scripts Furosemide (FUROSEMIDE) 40 Mg Tablet, 40 MG PO BID for CHF for 30 Days, #60 TAB Prov:ALCIDES SWANSON MD 08/22/21 Nystatin (NYAMYC) 15 Gm Powder, 1 CAROLINA TP BID for skin candidiasis for 14 Days, #200 MISC Prov:ALCIDES SWANSON MD 08/22/21 Heparin Sodium,Porcine (HEPARIN SODIUM) 5,000 Unit/1 Ml Vial, 5000 UNIT SQ Q8HRS for DVT prophylaxis for 14 Days, #42 EACH Prov:ALCIDES SWANSON MD 08/22/21 Ipratropium/Albuterol Sulfate (DUONEB 0.5-3(2.5) MG/3 ML) 3 Ml Ampul.neb, 3 ML NEB RTQID for asthma for 30 Days, #120 EACH Prov:ALCIDES SWANSON MD 08/22/21 Multivits,Ca,Minerals/Iron/Fa (THERA-M TABLET) 1 Each Tablet, 1 TAB PO DAILY for anemia for 30 Days, #30 TAB Prov:ALCIDES SWANSON MD 07/29/21 Sennosides/Docusate Sodium (STOOL SOFT-STIMULANT LAX TAB) 1 Each Tablet, 2 TAB PO PRN BID PRN for CONSTIPATION for 30 Days, #60 TAB Prov:ALCIDES SWANSON MD 12/03/20 Acetaminophen (ACETAMINOPHEN) 325 Mg Tablet, 650 MG PO PRN Q6HRS PRN for MILD PAIN / TEMP > 100.3'F for 7 Days, #28 TAB Prov:ALCIDES SWANSON MD 12/03/20 Reported Medications Potassium Chloride (POTASSIUM CHLORIDE ) 20 Meq Tablet.er, 20 MEQ PO DAILY for SUPPLEMENT, TAB.SR 08/20/21 Losartan Potassium (LOSARTAN POTASSIUM) 50 Mg Tablet, 25 MG PO DAILY for HYPERTENSION, TAB 08/20/21 Colchicine (COLCRYS) 0.6 Mg Tablet, 1 TAB PO DAILY for gout pain for 30 Days, #30 TAB 0 Refills 08/20/21 Clopidogrel Bisulfate (CLOPIDOGREL) 75 Mg Tablet, 1 TAB PO DAILY for prevention, #90 TAB 1 Refill 08/20/21 Atenolol (ATENOLOL) 25 Mg Tablet, 1 TAB PO DAILY for htn, #30 TAB 5 Refills 08/20/21 Levothyroxine Sodium (LEVOTHYROXINE SODIUM) 175 Mcg Tablet, 1 TAB PO DAILY for THYROID, #30 TAB 5 Refills 07/27/21 Aspirin (ASPIRIN) 81 Mg Tab.chew, 81 MG PO DAILY for DVT, TAB.CHEW 11/30/20 Diclofenac Sodium (DICLOFENAC SODIUM) 100 Gm Gel..gram., 100 GM TP PRN PRN for PAIN, EACH 07/09/20 Hydroxychloroquine Sulfate (HYDROXYCHLOROQUINE SULFATE) 200 Mg Tablet, 1 TAB PO BID for anticoag, #180 TAB 1 Refill 07/09/20 Cholecalciferol (Vitamin D3) (VITAMIN D3) 1,000 Unit Tablet, 2000 UNIT PO DAILY, TAB 01/24/18 Atorvastatin Calcium (ATORVASTATIN CALCIUM) 20 Mg Tablet, 20 MG PO HS for FOR CHOLESTEROL, #30 TAB 0 Refills 01/24/18 Ferrous Sulfate (FERROUS SULFATE) 325 Mg Tablet, 325 MG PO DAILY, TAB 02/09/17 Hydrocodone Bit/Acetaminophen (HYDROCODONE-APAP 7.5-325 ) 1 Each Tablet, 1 TAB PO PRN Q6HRS PRN for PAIN, TAB 0 Refills 02/09/17 Budesonide/Formoterol Fumarate (SYMBICORT 160-4.5 MCG INHALER) 10.2 Gm Hfa.aer.ad, 2 PUFF IH BID, #10.6 GM 3 Refills 02/09/17 Montelukast Sodium (SINGULAIR TABLET ) 10 Mg Tablet, 1 TAB PO DAILY, #90 TAB 1 Refill 04/27/14 Cetirizine Hcl (CETIRIZINE HCL) 10 Mg Tablet, 1 TAB PO DAILY, #30 TAB 5 Refills 04/27/14 Gabapentin (GABAPENTIN ) 300 Mg Capsule, 1 CAP PO TID, #90 CAP 5 Refills 04/27/14 Allergy Allergies Coded Allergies Type Severity Reaction Last Updated Verified No Known Drug Allergies 07/27/21 No Follow up in 5 days. Comments Discharge Management - 35 minutes. For other details please refer to discharge instructions Justicifation of Admission Dx: Justifications for Admission: Justification of Admission Dx: Yes ALCIDES SWANSON MD August 22, 2021 09:39
--- NOTE | 2021-08-22 10:25 | PDOC ---
[facility]OM[facility] HOSPICE BEREAVEMENT COORDINATOR 08/22/21 1025: CARDIO Progress Notes Date and Time Date of Service 08/22/21 Time of Evaluation 1020 Subjective Subjective: No Chest Pain, No Palpitations, No Dizziness Vitals Vitals Vital Signs Date Time Temp Pulse Resp B/P (MAP) Pulse Ox O2 Delivery O2 Flow Rate FiO2 08/22/21 08:00 Nasal Cannula 5.0 08/22/21 07:42 97 08/22/21 07:00 99.1 87 19 127/70 (89) 99.1 Weight Weight [ ] Input and Output Intake and Output Intake and Output 08/22/21 07:00 Intake Total 1090 ml Output Total 1500 ml Balance -410 ml Intake Oral 1090 ml Output Urine Total 1500 ml Laboratory Labs Laboratory Tests Test 08/22/21 03:50 White Blood Count 8.7 x10^3/uL (4.0-11.0) Red Blood Count 3.40 x10^6/uL (3.50-5.40) Hemoglobin 10.0 g/dL (12.0-15.5) Hematocrit 30.4 % (36.0-47.0) Mean Corpuscular Volume 90 fL (79-100) Mean Corpuscular Hemoglobin 29 pg (25-35) Mean Corpuscular Hemoglobin Concent 33 g/dL (31-37) Red Cell Distribution Width 17.0 % (11.5-14.5) Platelet Count 246 x10^3/uL (140-400) Neutrophils (%) (Auto) 71 % (31-73) Lymphocytes (%) (Auto) 17 % (24-48) Monocytes (%) (Auto) 8 % (0-9) Eosinophils (%) (Auto) 4 % (0-3) Basophils (%) (Auto) 1 % (0-3) Neutrophils # (Auto) 6.2 x10^3/uL (1.8-7.7) Lymphocytes # (Auto) 1.5 x10^3/uL (1.0-4.8) Monocytes # (Auto) 0.7 x10^3/uL (0.0-1.1) Eosinophils # (Auto) 0.3 x10^3/uL (0.0-0.7) Basophils # (Auto) 0.1 x10^3/uL (0.0-0.2) Sodium Level 140 mmol/L (136-145) Potassium Level 4.3 mmol/L (3.5-5.1) Chloride Level 101 mmol/L (98-107) Carbon Dioxide Level 32 mmol/L (21-32) Anion Gap 7 (6-14) Blood Urea Nitrogen 19 mg/dL (7-20) Creatinine 1.5 mg/dL (0.6-1.0) Estimated GFR (Cockcroft-Gault) 40.9 Glucose Level 86 mg/dL (70-99) Calcium Level 8.4 mg/dL (8.5-10.1) Physical Exam HEENT: Neck Supple W Full Motion Chest: Symmetric LUNGS: Other (diminished ) Heart: RRR Abdomen: Soft N/T Extremities: Other (1+ bilateral LE edema ) Neurology: alert, oriented, follow commands Assessment Assessment 1. NSTEMI; peak 191. most likely type II, demand ischemia 2. Acute on chronic systolic and diastolic heart failure; s/p IV diuresis 3. Cardiomyopathy; Echo 03/13 with LVEF 40-45% 4. HERMELINDA on CKD; Cr improved 5. CAD s/p PCI/stent; clinically stable. MPI 08/10 with fixed defect. 6. Hypertension; controlled 7. Dyslipidemia; statin 8. Morbid obesity 9. Hypothyroidism; on replacement Recommendations Mild diuresis with close monitoring of renal function HF optimization Secondary prevention Outpatient ischemic evaluation Supportive care Justicifation of Admission Dx: Justifications for Admission: Justification of Admission Dx: Yes SHASHANK UNGER MD 08/22/21 1357: CARDIO Progress Notes Assessment Assessment Patient seen and examined. Agree with [employer]'s assessment and plan. Acute on chronic combined systolic and diastolic heart failure better compensated with diuresis. Non-STEMI most probably type II/demand ischemia. Continue current medical regimen and follow-up as scheduled. TOMASZ ROOT APRN August 22, 2021 10:25 SHASHANK UNGER MD August 22, 2021 13:57
[2021-08-22 10:47] VITALS: BP 114/51
--- NOTE | 2021-08-22 11:06 | CONS ---
DATE OF CONSULTATION: 08/22/2021 PULMONARY CONSULTATION ATTENDING PHYSICIAN: Michael Oconnor M.D. REASON FOR CONSULTATION: CHF, hypoxia. HISTORY OF PRESENT ILLNESS: The patient is a 76-year-old morbidly obese female with a BMI of 49.5. The patient also has 50 years of tobaccoism. She quit in 2012. She has cardiomyopathy with an EF of 40%. She was brought into the hospital with increasing shortness of breath. The patient had a left knee replacement 3 weeks ago. The patient denies any chest pain. Denies any cough. She uses p.r.n. oxygen at home. She has no nausea, vomiting or diarrhea. The patient underwent CT chest, which was done on 08/19/2021. I have reviewed the CT chest. There is dilated cardiomegaly and there are interstitial infiltrates and mild pleural effusions suggestive of CHF. I have been asked to see for further evaluation. PAST MEDICAL HISTORY: Significant for history of congestive heart failure, history of cardiomyopathy with an EF of 40%, history of COPD, hypothyroidism, morbid obesity, hypertension, hyperlipidemia, and coronary artery disease. PAST SURGICAL HISTORY: Left knee replacement. MEDICATIONS: Reviewed as listed in the MRAD including furosemide, budesonide and DuoNeb. She is also on heparin for DVT prophylaxis. REVIEW OF SYSTEMS: Twelve-point review of system obtained. Pertinent positives discussed in my present illness, otherwise noncontributory. All systems that were negative were reviewed as well. ALLERGIES: None. SOCIAL HISTORY: Smoked for 50 years before quitting in 2012. PHYSICAL EXAMINATION: VITAL SIGNS: Reviewed. T-max of 99.1. Blood pressure 127/70. Pulse ox is 97% on 5 liters. NECK: Supple. LUNGS: With few anterior rhonchi. No wheezing. CARDIOVASCULAR: With a regular rate. ABDOMEN: Soft, obese. EXTREMITIES: Bilateral 2+ pitting edema. LABORATORY DATA: Reviewed. White cell count 8.7, hemoglobin 10.0, platelets are 246. BUN is 19, creatinine 1.5. D-dimer is 10.35. IMPRESSION: 1. Acute hypoxic respiratory failure secondary to [id number] systolic congestive heart failure. 2. The patient with known cardiomyopathy with an ejection fraction of 40% based on echo from 02/2021. No significant valvular heart disease. Would recommend repeating an echo. 3. Acute kidney injury. 4. Abnormal D-dimer, which is nonspecific and could be related to congestive heart failure; however, we will obtain venous Dopplers of lower extremities to rule out deep venous thrombosis. 5. 50 years of tobaccoism. Suspect underlying chronic obstructive pulmonary disease. RECOMMENDATIONS: 1. Discussed with Dr. Michael Oconnor. We will continue with diuresis. 2. Gradually wean FiO2 to keep saturation 92% and above. 3. Continue with DuoNeb and budesonide nebs. 4. Cautious diuresis. 5. Obtain venous Dopplers of lower extremities. 6. Continue heparin for DVT prophylaxis. 7. PFTs as an outpatient. 8. Follow Cardiology recommendations. Discuss with Dr. Michael Oconnor. ARABELLA/STEFAN/KRISTIE HOUSE: ARABELLA/dick TID: [id number]
--- NOTE | 2021-08-22 12:08 | RAD ---
Bilateral lower extremity venous real time grayscale, color and spectral duplex ultrasound was perfor med. History: Reason: leg edema / Spl. Instructions: / History: Comparison: None. Findings: The common femoral, femoral and popliteal veins demonstrate anechoic lumina, full compressibility, an d cephalad color doppler flow. Due to patient's size the veins of the calf could not be visualized. Impression: Limited evaluation shows no evidence of DVT above the knee. Veins below the knee could not be visuali zed due to patient's body habitus. Electronically signed by: Delvin Taylor MD (08/22/2021 12:05 PM) [id number]
[2021-08-22] MEDS: HYDROcodone/APAP 7.5/325MG 1 TAB TABLET PO PRN ×2 (12:29→21:50)
[2021-08-22] MEDS ORDERED: BUPIVACAINE MPF 0.25% 10 ML VIAL. IJ ONE (13:15)
[2021-08-22] MEDS ORDERED: TRIAMCINOLONE PRES.FREE 40 MG/ML VIAL. INT ART ONE (13:15)
--- NOTE | 2021-08-22 13:45 | NUR ---
ASSISTED DR CRANDALL WITH INJECTION OF (R) KNEE. ORDER PLACED FOR CPM VIA FREE TEXT ORDER. DISCUSSED WITH NURSING SUPERRVISOR. SHE STATES THAT WE DO NOT HAVE ACCESS TO ONE IN THE HOSPITAL, OR THE ABILITY TO OBTAIN ONE AT THIS TIME. PT ENCOURAGED TO PARTICIPATED WITH PT AND OT WHILE PLACEMENT ARRANGEMENTS ARE WORKED OUT FOR ADDITIONAL REHAB.
--- NOTE | 2021-08-22 13:53 | NUR ---
SS following up with discharge planning. SS reviewed pt chart and discussed with pt RN. Pt is from home and is currently requiring oxygen at four liters nasal canula. PT/OT recommended intermediate unit. Pt was recently discharge from [facility], ; fax [phone], and was home for one day and returned to the hospital. Pt's family requesting pt to be rescreened for [facility], ; fax [phone]. Referrals sent as requested. COVID19 PCR requested for placement. SS will continue to follow for discharge planning.
[2021-08-22] MEDS ORDERED: DOCUSATE SODIUM 283 MG/5 ML ENEMA. PR PRN (14:00)
[2021-08-22] MEDS ORDERED: MAGNESIUM HYDROXIDE 2,400 MG/30 ML ORAL.SUSP. PO PRN (14:00)
[2021-08-22] MEDS: BISACODYL 5 MG TABLET.DR. PO SCH (14:42)
[2021-08-22] MEDS: NEOMY/BACITR/POLYMYXIN OINT PACKET. TP SCH ×2 (14:42→21:45)
[2021-08-22 14:57] VITALS: BP 107/54
[2021-08-22 19:25] VITALS: BP 120/57
[2021-08-22] MEDS: ATORVASTATIN CALCIUM 20 MG TABLET PO SCH (21:46)
--- NOTE | 2021-08-22 22:25 | CONS ---
DATE OF CONSULTATION: 08/22/2021 ATTENDING PHYSICIAN: Michael Oconnor MD. REASON FOR CONSULTATION: The patient was seen at the request of Dr. Oconnor for rehab evaluation. HISTORY OF PRESENT ILLNESS: This is a 76-year-old female known to me. The patient is status post left total knee arthroplasty done about 3 weeks ago and she was transferred to [facility] for continued inpatient rehab. She was discharged to home and then she started having increased shortness of breath and swelling of her lower extremities, admitted through the Emergency Room on 08/19/2021. The patient was found with elevated BNP and also D-dimer. The patient since admission is being treated for acute on chronic congestive heart failure, elevated troponin, chronic kidney disease with a creatinine of 2.3. Morbid obesity, continued left knee stiffness and pain for stop total knee arthroplasty in a patient with known hypertension, hyperlipidemia, hypothyroidism. She was also found with non-ST segment elevated myocardial infarction, likely type 2; acute kidney injury on chronic kidney disease. The patient complains of right knee joint pain. The patient admits right knee bothers her more than left side. As per physical therapy note, she requires maximal assistance with bed mobility and transfers. They want her to go to [facility]. The patient prior to the present hospitalization lived alone at home with help from her family. She had 2-3 steps to enter the house. The patient admits some soreness in her bottom. PHYSICAL EXAMINATION: GENERAL: Today revealed an elderly female. She is alert, oriented to time, place, person and circumstance, follows commands appropriately. NEUROLOGIC: Moves all 4 extremities voluntarily where she had 4+/5 grade muscle strength. Deep tendon reflexes are decreased overall. She had equal perception of touch and pinprick sensation bilaterally. She had well-healed left knee arthroplasty scar, some skin irritation over anterolateral aspect of left knee dorsal aspect and she had significant stiffness of her knee range of motion, both flexion to some extent. Extension is limited. She had crepitus on range of motion of her right knee joint. She seemed to have equal perception of touch and pinprick sensation bilaterally. Pain on range of motion of her right knee joint. I did not check her transfer or ambulation skills at present time. ASSESSMENT: Elderly female with painful degenerative joint disease of both knees, status post left total knee arthroplasty done about 3-1/2 weeks ago with continued stiffness and pain. Left knee painful degenerative joint disease of right knee. Clinical evidence of peripheral neuropathy, anemia, hypertension, acute on chronic congestive heart failure, acute kidney injury on top of chronic kidney disease, morbid obesity. RECOMMENDATIONS: At her request, I have injected her right knee joint under aseptic skin technique after skin preparation, using alcohol swab with 1 mL of Kenalog 40 mg per 1 mL solution mixed with 2 mL of 0.25% Marcaine solution and she tolerated the procedure satisfactorily without any side effects to obtain her hinged knee brace for her to use while up and to start her on CPM machine to help improve her left knee joint range of motion. Dr. Oconnor appreciate asking me to participate in the care of this interesting patient. Agree with the plans for transfer to penitentiary care unit when she is medically stable. CARLITA DR: Shannan TID: [id number]
[2021-08-22 22:28] VITALS: BP 104/49
[2021-08-23 02:26] VITALS: BP 114/53
[2021-08-23] MEDS: LEVOTHYROXINE 175 MCG TABLET PO SCH (06:38)
[2021-08-23] MEDS: HEPARIN for SUB-Q USE 5,000 UNIT/ML VIAL. SQ SCH ×4 (06:41→23:41)
[2021-08-23 07:00] VITALS: BP 144/68
[2021-08-23] MEDS: IPRATRPIUM/ALBUTEROL 0.5/2.5MG 3 ML NEBU. NEB SCH ×4 (08:21→20:34)
[2021-08-23] MEDS: BUDESONIDE 0.5 MG/2 ML NEBU. NEB SCH ×2 (08:21→20:34)
[2021-08-23] MEDS: MONTELUKAST SODIUM 10 MG TABLET. PO SCH (08:52)
[2021-08-23] MEDS: CHOLECALCIFEROL (VITAMIN D3) 1,000 UNIT TABLET PO SCH (08:52)
[2021-08-23] MEDS: CETIRIZINE HCL 10 MG TABLET. PO SCH (08:52)
[2021-08-23] MEDS: ASPIRIN CHEWABLE 81 MG TABLET. PO SCH (08:52)
[2021-08-23] MEDS: FERROUS SULFATE 325 MG TABLET. PO SCH (08:52)
[2021-08-23] MEDS: FUROSEMIDE 20 MG/2 ML VIAL. IVP SCH ×2 (08:52→14:38)
[2021-08-23] MEDS: BISACODYL 5 MG TABLET.DR. PO SCH (08:52)
[2021-08-23] MEDS: MULTIVITAMIN with MINERAL TABLET. PO SCH (08:52)
[2021-08-23] MEDS: NEOMY/BACITR/POLYMYXIN OINT PACKET. TP SCH ×2 (08:53→20:53)
[2021-08-23] MEDS: GABAPENTIN 300 MG CAPSULE. PO SCH ×3 (08:53→20:53)
[2021-08-23] MEDS: NYSTATIN TOPICAL POWDER 15GM BOTTLE. TP SCH ×2 (08:53→20:54)
[2021-08-23] MEDS: HYDROXYCHLOROQUINE 200 MG TABLET PO SCH ×2 (08:53→20:53)
--- NOTE | 2021-08-23 09:01 | PDOC ---
IM PROGRESS NOTES- Subjective Subjective C/o knee pain. Dyspnea is improving. Objective Vitals/I&O Vital Signs Date Time Temp Pulse Resp B/P (MAP) Pulse Ox O2 Delivery O2 Flow Rate FiO2 08/23/21 07:00 98.0 73 19 144/68 (93) 96 Nasal Cannula 5.0 98.0 I & O 08/22/21 08/22/21 08/23/21 15:00 23:00 07:00 Intake Total 360 ml 380 ml 120 ml Output Total 1500 ml 500 ml Balance 360 ml -1120 ml -380 ml Physical Exam Physical Exam General Appearance - alert and in no distress Chest - decreased breath sounds at bases Heart - S1 and S2 normal Abdomen - soft, non tender Neurological - alert and oriented Musculoskeletal - generalized weakness Extremities - no edema Labs Laboratory Tests Test 08/23/21 04:20 Triglycerides Level 36 mg/dL (0-150) Cholesterol Level 98 mg/dL (0-200) LDL Cholesterol, Calculated 41 mg/dL (0-100) VLDL Cholesterol, Calculated 7 mg/dL (0-40) Non-HDL Cholesterol Calculated 48 mg/dL (0-129) HDL Cholesterol 50 mg/dL (40-60) Cholesterol/HDL Ratio 2.0 Thyroid Stimulating Hormone (TSH) 0.430 uIU/mL (0.358-3.74) Meds Current Medications Medications (Trade) Dose Ordered Sig/Negro Route PRN Reason Start Time Stop Time Status Last Admin Dose Admin Triamcinolone Acetonide (Kenalog-40) 40 mg 1X ONCE INT ART 08/22/21 13:15 08/22/21 13:26 DC 08/22/21 13:40 Bupivacaine HCl (Sensorcaine-Mpf 0.25%) 10 ml 1X ONCE IJ 08/22/21 13:15 08/22/21 13:26 DC 08/22/21 13:40 Neomycin/ Polymyxin/ Bacitracin (Triple Antibiotic Ointment) 1 pkt BID TP 08/22/21 14:00 08/22/21 21:45 Bisacodyl (Dulcolax Tab) 10 mg DAILY PO 08/22/21 14:00 08/22/21 14:42 Levothyroxine Sodium (Synthroid) 175 mcg DAILY06 PO 08/23/21 06:00 08/23/21 06:38 Assessment Assessment 1. Acute on chronic congestive heart failure. 2. Elevated troponin, rule out silent myocardial infarction. 3. Kidney disease, creatinine 2.3. 4. Morbid obesity. 5. Recent left knee replacement. 6. Hypertension. 7. Hyperlipidemia. 8. Hypothyroidism. 9. Acute hypoxic respiratory failure. PLAN: At this time, admit to hospital, was given IV Lasix, subcutaneous heparin 3 times daily for DVT prophylaxis. Cardiology consultation, serial cardiac enzymes and see how the patient's improves in the next 24-48 hours. Acute hypoxic respiratory failure. Likely due to CHF. O2 by n/c. Low grade fever- monitor. CT chest report pending. Consult . Acute on chronic congestive heart failure.Diuretics. Cardiology consult appreciated. CKD- Creat decreased from 2.3 to 1.9. Renal consult. Fever- Labs,consult ID.Etiology not clear. D Dimer 10- Venous doppler lower extremity- no DVT on limited evaluation. Rt knee pain is improving. She had a steroid injection yesterday. Awaiting placement. Plan Plan For more details regarding further plans, please refer to the orders. Justifications for Admission Other Justification ALCIDES SWANSON MD August 23, 2021 09:01
--- NOTE | 2021-08-23 09:28 | PDOC ---
TOMAS[facility] ROOT [employer] 08/23/21 0928: CARDIO Progress Notes Date and Time Date of Service 08/23/21 Time of Evaluation 1210 Subjective Subjective: No Chest Pain, No shortness of breath, No Palpitations, No Dizziness, Other (legs still swollen) Vitals Vitals Vital Signs Date Time Temp Pulse Resp B/P (MAP) Pulse Ox O2 Delivery O2 Flow Rate FiO2 08/23/21 07:32 97 Nasal Cannula 4.0 08/23/21 07:00 98.0 73 19 144/68 (93) 98.0 Weight Weight [ ] Input and Output Intake and Output Intake and Output 08/23/21 07:00 Intake Total 860 ml Output Total 2000 ml Balance -1140 ml Intake Oral 860 ml Output Urine Total 2000 ml Laboratory Labs Laboratory Tests Test 08/23/21 04:20 Triglycerides Level 36 mg/dL (0-150) Cholesterol Level 98 mg/dL (0-200) LDL Cholesterol, Calculated 41 mg/dL (0-100) VLDL Cholesterol, Calculated 7 mg/dL (0-40) Non-HDL Cholesterol Calculated 48 mg/dL (0-129) HDL Cholesterol 50 mg/dL (40-60) Cholesterol/HDL Ratio 2.0 Thyroid Stimulating Hormone (TSH) 0.430 uIU/mL (0.358-3.74) Physical Exam HEENT: Neck Supple W Full Motion Chest: Symmetric LUNGS: Other (diminished ) Heart: RRR Abdomen: Soft N/T Extremities: Other (1-2+ bilateral LE edema ) Neurology: alert, oriented, follow commands Assessment Assessment 1. NSTEMI; peak 191. most likely type II, demand ischemia 2. Acute on chronic systolic and diastolic heart failure; improved s/p IV diuresis 3. Cardiomyopathy; Echo 03/13 with LVEF 40-45% 4. HERMELINDA on CKD; Cr improved, stable 5. CAD s/p PCI/stent; clinically stable. MPI 08/10 with fixed defect. 6. Hypertension; controlled 7. Dyslipidemia; statin 8. Morbid obesity 9. Hypothyroidism; on replacement Recommendations Ongoing diuresis HF optimization Secondary prevention Outpatient ischemic evaluation Supportive care Follow up in our office with Dr. Mann has been arranged Justicifation of Admission Dx: Justifications for Admission: Justification of Admission Dx: Yes SHASHANK MANN MD 08/24/21 0612: CARDIO Progress Notes Assessment Assessment Patient seen and examined. Agree with OUTREACH LIAISON's assessment and plan. Acute on chronic combined systolic and diastolic heart failure better compensated with diuresis. Non-STEMI most probably type II/demand ischemia. Continue current medical regimen Plan outpatient ischemic evaluation Follow-up as scheduled. TOMASZ ROOT APRN August 23, 2021 09:28 SHASHANK MANN MD August 24, 2021 06:12
--- NOTE | 2021-08-23 09:44 | PDOC ---
PROGRESS NOTES Date of Service DATE: 08/23/21 TIME: 09:39 Subjective Subjective No new complaints. Objective Objective Vital Signs Date Time Temp Pulse Resp B/P (MAP) Pulse Ox O2 Delivery O2 Flow Rate FiO2 08/23/21 07:32 97 Nasal Cannula 4.0 08/23/21 07:00 98.0 73 19 144/68 (93) 98.0 Intake and Output 08/23/21 07:00 Intake Total 860 ml Output Total 2000 ml Balance -1140 ml Intake Oral 860 ml Output Urine Total 2000 ml Physical Exam Physical Exam She is alert,supine in bed and continues with stiffness of her knees and edema of her feet and legs and she requires maximal assistance for transfers. She is using oxygen by nasal canula. She remains constipated. Assessment Assessment Problems Medical Problems: (1) CHF exacerbation Status: Acute Plan Plan of Care She needs continued rehab follow up on in patient basis,at least until she can transfer by herself or minimal assistance of one person before deciding on discharge to home when medically stable. Comment Review of Relevant I have reviewed the following items swathi (where applicable) has been applied. Labs Laboratory Tests Test 08/22/21 03:50 08/23/21 04:20 White Blood Count 8.7 x10^3/uL (4.0-11.0) Red Blood Count 3.40 x10^6/uL (3.50-5.40) Hemoglobin 10.0 g/dL (12.0-15.5) Hematocrit 30.4 % (36.0-47.0) Mean Corpuscular Volume 90 fL (79-100) Mean Corpuscular Hemoglobin 29 pg (25-35) Mean Corpuscular Hemoglobin Concent 33 g/dL (31-37) Red Cell Distribution Width 17.0 % (11.5-14.5) Platelet Count 246 x10^3/uL (140-400) Neutrophils (%) (Auto) 71 % (31-73) Lymphocytes (%) (Auto) 17 % (24-48) Monocytes (%) (Auto) 8 % (0-9) Eosinophils (%) (Auto) 4 % (0-3) Basophils (%) (Auto) 1 % (0-3) Neutrophils # (Auto) 6.2 x10^3/uL (1.8-7.7) Lymphocytes # (Auto) 1.5 x10^3/uL (1.0-4.8) Monocytes # (Auto) 0.7 x10^3/uL (0.0-1.1) Eosinophils # (Auto) 0.3 x10^3/uL (0.0-0.7) Basophils # (Auto) 0.1 x10^3/uL (0.0-0.2) Sodium Level 140 mmol/L (136-145) Potassium Level 4.3 mmol/L (3.5-5.1) Chloride Level 101 mmol/L (98-107) Carbon Dioxide Level 32 mmol/L (21-32) Anion Gap 7 (6-14) Blood Urea Nitrogen 19 mg/dL (7-20) Creatinine 1.5 mg/dL (0.6-1.0) Estimated GFR (Cockcroft-Gault) 40.9 Glucose Level 86 mg/dL (70-99) Calcium Level 8.4 mg/dL (8.5-10.1) Triglycerides Level 36 mg/dL (0-150) Cholesterol Level 98 mg/dL (0-200) LDL Cholesterol, Calculated 41 mg/dL (0-100) VLDL Cholesterol, Calculated 7 mg/dL (0-40) Non-HDL Cholesterol Calculated 48 mg/dL (0-129) HDL Cholesterol 50 mg/dL (40-60) Cholesterol/HDL Ratio 2.0 Thyroid Stimulating Hormone (TSH) 0.430 uIU/mL (0.358-3.74) Laboratory Tests Test 08/23/21 04:20 Triglycerides Level 36 mg/dL (0-150) Cholesterol Level 98 mg/dL (0-200) LDL Cholesterol, Calculated 41 mg/dL (0-100) VLDL Cholesterol, Calculated 7 mg/dL (0-40) Non-HDL Cholesterol Calculated 48 mg/dL (0-129) HDL Cholesterol 50 mg/dL (40-60) Cholesterol/HDL Ratio 2.0 Thyroid Stimulating Hormone (TSH) 0.430 uIU/mL (0.358-3.74) Medications Current Medications Acetaminophen/ Hydrocodone Bitart (Lortab 5/325) 1 tab PRN Q6HRS PRN PO MODERATE PAIN Last administered on 08/21/21at 08:31; Start 08/20/21 at 01:00 Acetaminophen (Tylenol) 650 mg PRN Q6HRS PRN PO MILD PAIN / TEMP > 100.3'F Last administered on 08/21/21 21:11; Start 08/20/21 at 10:00 Aspirin (Aspirin Chewable) 81 mg DAILY PO Last administered on 08/23/21 08:52; Start 08/20/21 at 10:30 Atorvastatin Calcium (Lipitor) 20 mg HS PO Last administered on 08/22/21 21:46; Start 08/20/21 at 21:00 Cetirizine HCl (ZyrTEC) 10 mg DAILY PO Last administered on 08/23/21 08:52; Start 08/21/21 at 09:00 Vitamin D (Vitamin D3) 2,000 unit DAILY PO Last administered on 08/23/21 08:52; Start 08/20/21 at 09:00 Ferrous Sulfate (Feosol) 325 mg DAILY PO Last administered on 08/23/21 08:52; Start 08/21/21 at 09:00 Gabapentin (Neurontin) 300 mg TID PO Last administered on 08/23/21 08:53; Start 08/20/21 at 14:00 Acetaminophen/ Hydrocodone Bitart (Lortab 7.5/325) 1 tab PRN Q6HRS PRN PO SEVERE PAIN Last administered on 08/22/21 21:50; Start 08/20/21 at 10:00 Hydroxychloroquine Sulfate (Plaquenil) 200 mg BID PO Last administered on 08/23/21 08:53; Start 08/20/21 at 10:00 Levothyroxine Sodium (Synthroid) 175 mcg DAILY PO Last administered on 08/22/21 08:02; Start 08/21/21 at 09:00; Stop 08/22/21 at 16:22; Status DC Montelukast Sodium (Singulair) 10 mg DAILY PO Last administered on 08/23/21 08:52; Start 08/20/21 at 10:30 Multivitamins (Thera M Plus) 1 tab DAILY PO Last administered on 08/23/21 08:52; Start 08/20/21 at 10:30 Senna/Docusate Sodium (Senna Plus) 2 tab PRN BID PRN PO CONSTIPATION; Start 08/20/21 at 10:00 Non-Formulary Medication (Budesonide/ Formoterol Fumarate (Symbicort 160-4.5 Mcg Inhaler)) 2 puff BID IH ; Start 08/20/21 at 21:00; Stop 08/20/21 at 10:16; Status DC Diclofenac Sodium (Voltaren) 1 shaka PRN DAILY PRN TP PAIN; Start 08/20/21 at 10:15 Heparin Sodium (Porcine) (Heparin Sodium) 5,000 unit Q8HRS SQ Last administered on 08/23/21 06:41; Start 08/20/21 at 10:00 Furosemide (Lasix) 20 mg BID92 IVP Last administered on 08/23/21 08:52; Start 08/20/21 at 14:00 Furosemide (Lasix) 40 mg 1X ONCE IVP Last administered on 08/20/21at 10:32; Start 08/20/21 at 10:00; Stop 08/20/21 at 10:16; Status DC Albuterol/ Ipratropium (Duoneb) 3 ml 1X ONCE NEB Last administered on 08/20/21at 11:55; Start 08/20/21 at 10:00; Stop 08/20/21 at 10:16; Status DC Albuterol/ Ipratropium (Duoneb) 3 ml RTQID NEB Last administered on 08/23/21 08:21; Start 08/20/21 at 12:00 Budesonide (Pulmicort) 0.5 mg RTBID NEB Last administered on 08/23/21 08:21; Start 08/20/21 at 20:00 Nystatin (Nystop) 1 shaka BID TP Last administered on 08/23/21 08:53; Start 08/20/21 at 13:00 Triamcinolone Acetonide (Kenalog-40) 40 mg 1X ONCE INT ART Last administered on 08/22/21 13:40; Start 08/22/21 at 13:15; Stop 08/22/21 at 13:26; Status DC Bupivacaine HCl (Sensorcaine-Mpf 0.25%) 10 ml 1X ONCE IJ Last administered on 08/22/21 13:40; Start 08/22/21 at 13:15; Stop 08/22/21 at 13:26; Status DC Neomycin/ Polymyxin/ Bacitracin (Triple Antibiotic Ointment) 1 pkt BID TP Last administered on 5/3/22at 08:53; Start 08/22/21 at 14:00 Magnesium Hydroxide (Milk Of Magnesia) 2,400 mg PRN DAILY PRN PO CONSTIPATION; Start 08/22/21 at 14:00 Bisacodyl (Dulcolax Tab) 10 mg DAILY PO Last administered on 08/23/21at 08:52; Start 08/22/21 at 14:00 Docusate Sodium (Enemeez) 283 mg PRN DAILY PRN DC CONSTIPATION; Start 08/22/21 at 14:00 Levothyroxine Sodium (Synthroid) 175 mcg DAILY06 PO Last administered on 08/23/21at 06:38; Start 08/23/21 at 06:00 Active Scripts Active Furosemide 40 Mg Tablet 40 Mg PO BID 30 Days Nyamyc (Nystatin) 15 Gm Powder 1 Shaka TP BID 14 Days Heparin Sodium (Heparin Sodium,Porcine) 5,000 Unit/1 Ml Vial 5,000 Unit SQ Q8HRS 14 Days Duoneb 0.5-3(2.5) Mg/3 Ml (Albuterol/Ipratropium) 3 Ml Ampul.neb 3 Ml NEB RTQID 30 Days Thera-M Tablet (Multivits,Ca,Minerals/Iron/Fa) 1 Each Tablet 1 Tab PO DAILY 30 Days Stool Soft-Stimulant Lax Tab (Sennosides/Docusate Sodium) 1 Each Tablet 2 Tab PO PRN BID PRN 30 Days Acetaminophen 325 Mg Tablet 650 Mg PO PRN Q6HRS PRN 7 Days Reported Potassium Chloride (Potassium Chloride) 20 Meq Tablet.er 20 Meq PO DAILY Losartan Potassium 50 Mg Tablet 25 Mg PO DAILY Colcrys (Colchicine) 0.6 Mg Tablet 1 Tab PO DAILY 30 Days Clopidogrel (Clopidogrel Bisulfate) 75 Mg Tablet 1 Tab PO DAILY Atenolol 25 Mg Tablet 1 Tab PO DAILY Levothyroxine Sodium 175 Mcg Tablet 1 Tab PO DAILY Aspirin 81 Mg Tab.chew 81 Mg PO DAILY Diclofenac Sodium 100 Gm Gel..gram. 100 Gm TP PRN PRN Hydroxychloroquine Sulfate 200 Mg Tablet 1 Tab PO BID Vitamin D3 (Cholecalciferol (Vitamin D3)) 1,000 Unit Tablet 2,000 Unit PO DAILY Atorvastatin Calcium 20 Mg Tablet 20 Mg PO HS Ferrous Sulfate 325 Mg Tablet 325 Mg PO DAILY Hydrocodone-Apap 7.5-325 (Hydrocodone Bit/Acetaminophen) 1 Each Tablet 1 Tab PO PRN Q6HRS PRN Symbicort 160-4.5 Mcg Inhaler (Budesonide/Formoterol Fumarate) 10.2 Gm Hfa.aer.ad 2 Puff IH BID Singulair Tablet (Montelukast Sodium) 10 Mg Tablet 1 Tab PO DAILY Cetirizine Hcl 10 Mg Tablet 1 Tab PO DAILY Gabapentin (Gabapentin) 300 Mg Capsule 1 Cap PO TID Vitals/I & O Vital Sign - Last 24 Hours 08/22/21 08/22/21 08/22/21 08/22/21 10:47 11:29 12:29 12:59 Temp 98.1 98.1 Pulse 87 Resp 18 B/P (MAP) 114/51 (72) Pulse Ox 99 96 96 96 O2 Delivery Nasal Cannula Nasal Cannula Nasal Cannula Nasal Cannula O2 Flow Rate 5.0 4.0 4.0 4.0 08/22/21 08/22/21 08/22/21 08/22/21 14:57 15:15 19:25 20:00 Temp 99.0 99.3 99.0 99.3 Pulse 96 97 Resp B/P (MAP) 107/54 (71) 120/57 (78) Pulse Ox 98 94 97 O2 Delivery Nasal Cannula Nasal Cannula Nasal Cannula Nasal Cannula O2 Flow Rate 4.0 4.0 4.0 3.0 08/22/21 08/22/21 08/23/21 08/23/21 21:08 22:28 02:26 07:00 Temp 99.2 99.7 98.0 99.2 99.7 98.0 Pulse 94 87 73 Resp B/P (MAP) 104/49 (67) 114/53 (73) 144/68 (93) Pulse Ox 90 94 94 96 O2 Delivery Nasal Cannula Nasal Cannula Nasal Cannula Nasal Cannula O2 Flow Rate 4.0 4.0 4.0 5.0 08/23/21 07:32 Pulse Ox 97 O2 Delivery Nasal Cannula O2 Flow Rate 4.0 Intake and Output 08/22/21 08/22/21 08/23/21 15:00 23:00 07:00 Intake Total 360 ml 380 ml 120 ml Output Total 1500 ml 500 ml Balance 360 ml -1120 ml -380 ml Justifications for Admission Other Justification BRIDGET CRANDALL MD August 23, 2021 09:44
[2021-08-23 09:46] LABS: BASO % 0 % (0-3); EOS % 0 % (0-3); HEMATOCRIT 31.3 % (36.0-47.0); HEMOGLOBIN 9.7 g/dL (12.0-15.5); LYMPH # 0.6 x10^3/uL (1.0-4.8); LYMPH % 7 % (24-48); MEAN CORPUSCULAR HEMOGLOBIN 28 pg (25-35); MEAN CORPUSCULAR HGB CONC 31 g/dL (31-37); MEAN CORPUSCULAR VOLUME 90 fL (79-100); MONO # 0.5 x10^3/uL (0.0-1.1); MONO % 5 % (0-9); NEUT # 8.8 x10^3/uL (1.8-7.7); NEUT % 89 % (31-73); PLATELET COUNT 256 x10^3/uL (140-400); RED BLOOD COUNT 3.48 x10^6/uL (3.50-5.40); RED CELL DISTRIBUTION WIDTH 16.5 % (11.5-14.5); WHITE BLOOD COUNT 9.9 x10^3/uL (4.0-11.0)
[2021-08-23 09:56] LABS: CALCIUM 8.6 mg/dL (8.5-10.1); CREATININE 1.5 mg/dL (0.6-1.0); GFR 40.9; POTASSIUM 4.5 mmol/L (3.5-5.1)
[2021-08-23 10:45] VITALS: BP 126/69
--- NOTE | 2021-08-23 10:55 | PDOC ---
PULMONARY PROGRESS NOTES DATE: 08/23/21 TIME: 10:55 Subjective Patient continues to be short of breath at times Vitals Vital Signs Date Time Temp Pulse Resp B/P (MAP) Pulse Ox O2 Delivery O2 Flow Rate FiO2 08/23/21 10:45 98.0 81 19 126/69 (88) 97 Nasal Cannula 5.0 98.0 ROS: No Nausea, No Chest Pain, No Abdominal Pain, No Increase Cough General: Alert HEENT: Other Lungs: Clear Cardiovascular: S1, S2 Abdomen: Soft, Other Neuro Exam: Alert Extremities: Other Skin: Warm (Edema) Labs Laboratory Tests Test 08/22/21 03:50 08/23/21 04:20 08/23/21 04:30 White Blood Count 8.7 x10^3/uL (4.0-11.0) 9.9 x10^3/uL (4.0-11.0) Red Blood Count 3.40 x10^6/uL (3.50-5.40) 3.48 x10^6/uL (3.50-5.40) Hemoglobin 10.0 g/dL (12.0-15.5) 9.7 g/dL (12.0-15.5) Hematocrit 30.4 % (36.0-47.0) 31.3 % (36.0-47.0) Mean Corpuscular Volume 90 fL (79-100) 90 fL (79-100) Mean Corpuscular Hemoglobin 29 pg (25-35) 28 pg (25-35) Mean Corpuscular Hemoglobin Concent 33 g/dL (31-37) 31 g/dL (31-37) Red Cell Distribution Width 17.0 % (11.5-14.5) 16.5 % (11.5-14.5) Platelet Count 246 x10^3/uL (140-400) 256 x10^3/uL (140-400) Neutrophils (%) (Auto) 71 % (31-73) 89 % (31-73) Lymphocytes (%) (Auto) 17 % (24-48) 7 % (24-48) Monocytes (%) (Auto) 8 % (0-9) 5 % (0-9) Eosinophils (%) (Auto) 4 % (0-3) 0 % (0-3) Basophils (%) (Auto) 1 % (0-3) 0 % (0-3) Neutrophils # (Auto) 6.2 x10^3/uL (1.8-7.7) 8.8 x10^3/uL (1.8-7.7) Lymphocytes # (Auto) 1.5 x10^3/uL (1.0-4.8) 0.6 x10^3/uL (1.0-4.8) Monocytes # (Auto) 0.7 x10^3/uL (0.0-1.1) 0.5 x10^3/uL (0.0-1.1) Eosinophils # (Auto) 0.3 x10^3/uL (0.0-0.7) 0.0 x10^3/uL (0.0-0.7) Basophils # (Auto) 0.1 x10^3/uL (0.0-0.2) 0.0 x10^3/uL (0.0-0.2) Sodium Level 140 mmol/L (136-145) 137 mmol/L (136-145) Potassium Level 4.3 mmol/L (3.5-5.1) 4.5 mmol/L (3.5-5.1) Chloride Level 101 mmol/L (98-107) 99 mmol/L (98-107) Carbon Dioxide Level 32 mmol/L (21-32) 30 mmol/L (21-32) Anion Gap 7 (6-14) 8 (6-14) Blood Urea Nitrogen 19 mg/dL (7-20) 23 mg/dL (7-20) Creatinine 1.5 mg/dL (0.6-1.0) 1.5 mg/dL (0.6-1.0) Estimated GFR (Cockcroft-Gault) 40.9 40.9 Glucose Level 86 mg/dL (70-99) 122 mg/dL (70-99) Calcium Level 8.4 mg/dL (8.5-10.1) 8.6 mg/dL (8.5-10.1) Triglycerides Level 36 mg/dL (0-150) Cholesterol Level 98 mg/dL (0-200) LDL Cholesterol, Calculated 41 mg/dL (0-100) VLDL Cholesterol, Calculated 7 mg/dL (0-40) Non-HDL Cholesterol Calculated 48 mg/dL (0-129) HDL Cholesterol 50 mg/dL (40-60) Cholesterol/HDL Ratio 2.0 Thyroid Stimulating Hormone (TSH) 0.430 uIU/mL (0.358-3.74) Laboratory Tests Test 08/23/21 04:20 08/23/21 04:30 Triglycerides Level 36 mg/dL (0-150) Cholesterol Level 98 mg/dL (0-200) LDL Cholesterol, Calculated 41 mg/dL (0-100) VLDL Cholesterol, Calculated 7 mg/dL (0-40) Non-HDL Cholesterol Calculated 48 mg/dL (0-129) HDL Cholesterol 50 mg/dL (40-60) Cholesterol/HDL Ratio 2.0 Thyroid Stimulating Hormone (TSH) 0.430 uIU/mL (0.358-3.74) White Blood Count 9.9 x10^3/uL (4.0-11.0) Red Blood Count 3.48 x10^6/uL (3.50-5.40) Hemoglobin 9.7 g/dL (12.0-15.5) Hematocrit 31.3 % (36.0-47.0) Mean Corpuscular Volume 90 fL (79-100) Mean Corpuscular Hemoglobin 28 pg (25-35) Mean Corpuscular Hemoglobin Concent 31 g/dL (31-37) Red Cell Distribution Width 16.5 % (11.5-14.5) Platelet Count 256 x10^3/uL (140-400) Neutrophils (%) (Auto) 89 % (31-73) Lymphocytes (%) (Auto) 7 % (24-48) Monocytes (%) (Auto) 5 % (0-9) Eosinophils (%) (Auto) 0 % (0-3) Basophils (%) (Auto) 0 % (0-3) Neutrophils # (Auto) 8.8 x10^3/uL (1.8-7.7) Lymphocytes # (Auto) 0.6 x10^3/uL (1.0-4.8) Monocytes # (Auto) 0.5 x10^3/uL (0.0-1.1) Eosinophils # (Auto) 0.0 x10^3/uL (0.0-0.7) Basophils # (Auto) 0.0 x10^3/uL (0.0-0.2) Sodium Level 137 mmol/L (136-145) Potassium Level 4.5 mmol/L (3.5-5.1) Chloride Level 99 mmol/L (98-107) Carbon Dioxide Level 30 mmol/L (21-32) Anion Gap 8 (6-14) Blood Urea Nitrogen 23 mg/dL (7-20) Creatinine 1.5 mg/dL (0.6-1.0) Estimated GFR (Cockcroft-Gault) 40.9 Glucose Level 122 mg/dL (70-99) Calcium Level 8.6 mg/dL (8.5-10.1) Medications Active Scripts Medications Dose Route/Sig Max Daily Dose Days Date Category Furosemide 40 Mg Tablet 40 Mg PO BID 30 08/22/21 Rx Nyamyc (Nystatin) 15 Gm Powder 1 Shaka TP BID 14 08/22/21 Rx Heparin Sodium (Heparin Sodium,Porcine) 5,000 Unit/1 Ml Vial 5,000 Unit SQ Q8HRS 14 08/22/21 Rx Duoneb 0.5-3(2.5) Mg/3 Ml (Albuterol/Ipratropium) 3 Ml Ampul.neb 3 Ml NEB RTQID 30 08/22/21 Rx Potassium Chloride (Potassium Chloride) 20 Meq Tablet.er 20 Meq PO DAILY 08/20/21 Reported Losartan Potassium 50 Mg Tablet 25 Mg PO DAILY 08/20/21 Reported Colcrys (Colchicine) 0.6 Mg Tablet 1 Tab PO DAILY 30 08/20/21 Reported Clopidogrel (Clopidogrel Bisulfate) 75 Mg Tablet 1 Tab PO DAILY 08/20/21 Reported Atenolol 25 Mg Tablet 1 Tab PO DAILY 08/20/21 Reported Thera-M Tablet (Multivits,Ca,Minerals/Iron/Fa) 1 Each Tablet 1 Tab PO DAILY 30 07/29/21 Rx Levothyroxine Sodium 175 Mcg Tablet 1 Tab PO DAILY 07/27/21 Reported Stool Soft-Stimulant Lax Tab (Sennosides/Docusate Sodium) 1 Each Tablet 2 Tab PO PRN BID PRN 30 12/03/20 Rx Acetaminophen 325 Mg Tablet 650 Mg PO PRN Q6HRS PRN 7 12/03/20 Rx Aspirin 81 Mg Tab.chew 81 Mg PO DAILY 11/30/20 Reported Diclofenac Sodium 100 Gm Gel..gram. 100 Gm TP PRN PRN 07/09/20 Reported Hydroxychloroquine Sulfate 200 Mg Tablet 1 Tab PO BID 07/09/20 Reported Vitamin D3 (Cholecalciferol (Vitamin D3)) 1,000 Unit Tablet 2,000 Unit PO DAILY 01/24/18 Reported Atorvastatin Calcium 20 Mg Tablet 20 Mg PO HS 01/24/18 Reported Ferrous Sulfate 325 Mg Tablet 325 Mg PO DAILY 02/09/17 Reported Hydrocodone-Apap 7.5-325 (Hydrocodone Bit/Acetaminophen) 1 Each Tablet 1 Tab PO PRN Q6HRS PRN 02/09/17 Reported Symbicort 160-4.5 Mcg Inhaler (Budesonide/Formoterol Fumarate) 10.2 Gm Hfa.aer.ad 2 Puff IH BID 02/09/17 Reported Singulair Tablet (Montelukast Sodium) 10 Mg Tablet 1 Tab PO DAILY 04/27/14 Reported Cetirizine Hcl 10 Mg Tablet 1 Tab PO DAILY 04/27/14 Reported Gabapentin (Gabapentin) 300 Mg Capsule 1 Cap PO TID 04/27/14 Reported Impression . IMPRESSION: 1. Acute hypoxic respiratory failure secondary to [id number] systolic congestive heart failure. 2. The patient with known cardiomyopathy with an ejection fraction of 40% based on echo from 02/2021. No significant valvular heart disease. Would recommend repeating an echo. 3. Acute kidney injury. 4. Abnormal D-dimer, which is nonspecific and could be related to congestive heart failure; however, we will obtain venous Dopplers of lower extremities to rule out deep venous thrombosis. 5. 50 years of tobaccoism. Suspect underlying chronic obstructive pulmonary disease. Plan . 08/23 updated Continue optimizing treatment for heart failure Venous Dopplers negative, limited study PFT as an outpatient 08/22 RECOMMENDATIONS: 1. Discussed with Dr. Michael Oconnor. We will continue with diuresis. 2. Gradually wean FiO2 to keep saturation 92% and above. 3. Continue with DuoNeb and budesonide nebs. 4. Cautious diuresis. 5. Obtain venous Dopplers of lower extremities. 6. Continue heparin for DVT prophylaxis. 7. PFTs as an outpatient. 8. Follow Cardiology recommendations. Discuss with Dr. Michael Oconnro. SOLITARIO BULLOCK MD August 23, 2021 10:55
[2021-08-23] MEDS: HYDROcodone/APAP 7.5/325MG 1 TAB TABLET PO PRN ×2 (11:41→20:53)
--- NOTE | 2021-08-23 14:48 | PDOC ---
DATE OF SERVICE DATE: 08/23/21 TIME: 14:46 SUBJECTIVE ROS No complaints, denies SOB OBJECTIVE Vital Signs Vital Signs Date Time Temp Pulse Resp B/P (MAP) Pulse Ox O2 Delivery O2 Flow Rate FiO2 08/23/21 12:58 94 Nasal Cannula 4.0 08/23/21 10:45 98.0 81 19 126/69 (88) 98.0 I & 0 Intake and Output 08/23/21 07:00 Intake Total 860 ml Output Total 2000 ml Balance -1140 ml Intake Oral 860 ml Output Urine Total 2000 ml PHYSICAL EXAM Physical Exam GENERAL: NAD, Morbidly obese HEENT: OM moist, On o2 by NC NECK: Supple. CV : S1, S2. No murmurs. LUNGS: CTA Bilat, Decreased at bases , Non labored ABDOMEN: Obese. NT : No Borden. EXTREMITIES: recent left knee replacement . trace -1 + LE edema NEUROLOGIC: Moving all extremities. No focal deficits noted. DIAGNOSIS/ASSESSMENT Assessment & Plan DIAGNOSIS/ASSESSMENT Assessment & Plan HERMELINDA - Cardiorenal , Creatinine trending down. UA unremarkable.diuretics, Cardiology managing . Avoid nephrotoxins, Supportive care ,. daily standing weight CKD -Baseline Creatinine 1.4-1.9 with intermittent HERMELINDA. Seen as OP in our office in May 2021 as Initial consult . Keep fu appt after dc Renal Cysts -US 05/2021 -multiple simple appearing right renal cysts, the largest of which measures 3.4 cm. Acute on chronic congestive heart failure getting IV Lasix . Card managing Morbid obesity. Recent left knee replacement. Hypertension- BP low currently , Monitor closely Anemia- Hgb normal COMMENT/RELEVANT DATA Meds Current Medications Medications (Trade) Dose Ordered Sig/Negro Start Time Stop Time Status Last Admin Dose Admin Acetaminophen (Tylenol) 650 mg PRN Q6HRS PRN 08/20/21 10:00 08/21/21 21:11 650 MG Acetaminophen/ Hydrocodone Bitart (Lortab 5/325) 1 tab PRN Q6HRS PRN 08/20/21 01:00 08/21/21 08:31 1 TAB Acetaminophen/ Hydrocodone Bitart (Lortab 7.5/325) 1 tab PRN Q6HRS PRN 08/20/21 10:00 08/23/21 11:41 1 TAB Albuterol/ Ipratropium (Duoneb) 3 ml RTQID 08/20/21 12:00 08/23/21 11:36 3 ML Aspirin (Aspirin Chewable) 81 mg DAILY 08/20/21 10:30 08/23/21 08:52 81 MG Atorvastatin Calcium (Lipitor) 20 mg HS 08/20/21 21:00 08/22/21 21:46 20 MG Bisacodyl (Dulcolax Tab) 10 mg DAILY 08/22/21 14:00 08/23/21 08:52 10 MG Budesonide (Pulmicort) 0.5 mg RTBID 08/20/21 20:00 08/23/21 08:21 0.5 MG Bupivacaine HCl (Sensorcaine-Mpf 0.25%) 10 ml 1X ONCE 08/22/21 13:15 08/22/21 13:26 DC 08/22/21 13:40 10 ML Cetirizine HCl (ZyrTEC) 10 mg DAILY 08/21/21 09:00 08/23/21 08:52 10 MG Diclofenac Sodium (Voltaren) 1 godwin PRN DAILY PRN 08/20/21 10:15 Docusate Sodium (Enemeez) 283 mg PRN DAILY PRN 08/22/21 14:00 Ferrous Sulfate (Feosol) 325 mg DAILY 08/21/21 09:00 08/23/21 08:52 325 MG Furosemide (Lasix) 40 mg 1X ONCE 08/20/21 10:00 08/20/21 10:16 DC 08/20/21 10:32 40 MG Gabapentin (Neurontin) 300 mg TID 08/20/21 14:00 08/23/21 14:38 300 MG Heparin Sodium (Porcine) (Heparin Sodium) 5,000 unit Q8HRS 08/20/21 10:00 08/23/21 14:38 5,000 UNIT Hydroxychloroquine Sulfate (Plaquenil) 200 mg BID 08/20/21 10:00 08/23/21 08:53 200 MG Levothyroxine Sodium (Synthroid) 175 mcg DAILY06 08/23/21 06:00 08/23/21 06:38 175 MCG Magnesium Hydroxide (Milk Of Magnesia) 2,400 mg PRN DAILY PRN 08/22/21 14:00 Montelukast Sodium (Singulair) 10 mg DAILY 4/30/22 10:30 08/23/21 08:52 10 MG Multivitamins (Thera M Plus) 1 tab DAILY 08/20/21 10:30 08/23/21 08:52 1 TAB Neomycin/ Polymyxin/ Bacitracin (Triple Antibiotic Ointment) 1 pkt BID 08/22/21 14:00 08/23/21 08:53 1 PKT Non-Formulary Medication (Budesonide/ Formoterol Fumarate (Symbicort 160-4.5 Mcg Inhaler)) 2 puff BID 08/20/21 21:00 08/20/21 10:16 DC Nystatin (Nystop) 1 godwin BID 08/20/21 13:00 08/23/21 08:53 1 GODWIN Senna/Docusate Sodium (Senna Plus) 2 tab PRN BID PRN 08/20/21 10:00 Triamcinolone Acetonide (Kenalog-40) 40 mg 1X ONCE 08/22/21 13:15 08/22/21 13:26 DC 08/22/21 13:40 40 MG Vitamin D (Vitamin D3) 2,000 unit DAILY 08/20/21 09:00 08/23/21 08:52 2,000 UNIT Lab Laboratory Tests Test 08/23/21 04:20 08/23/21 04:30 Triglycerides Level 36 mg/dL (0-150) Cholesterol Level 98 mg/dL (0-200) LDL Cholesterol, Calculated 41 mg/dL (0-100) VLDL Cholesterol, Calculated 7 mg/dL (0-40) Non-HDL Cholesterol Calculated 48 mg/dL (0-129) HDL Cholesterol 50 mg/dL (40-60) Cholesterol/HDL Ratio 2.0 Thyroid Stimulating Hormone (TSH) 0.430 uIU/mL (0.358-3.74) White Blood Count 9.9 x10^3/uL (4.0-11.0) Red Blood Count 3.48 x10^6/uL (3.50-5.40) Hemoglobin 9.7 g/dL (12.0-15.5) Hematocrit 31.3 % (36.0-47.0) Mean Corpuscular Volume 90 fL (79-100) Mean Corpuscular Hemoglobin 28 pg (25-35) Mean Corpuscular Hemoglobin Concent 31 g/dL (31-37) Red Cell Distribution Width 16.5 % (11.5-14.5) Platelet Count 256 x10^3/uL (140-400) Neutrophils (%) (Auto) 89 % (31-73) Lymphocytes (%) (Auto) 7 % (24-48) Monocytes (%) (Auto) 5 % (0-9) Eosinophils (%) (Auto) 0 % (0-3) Basophils (%) (Auto) 0 % (0-3) Neutrophils # (Auto) 8.8 x10^3/uL (1.8-7.7) Lymphocytes # (Auto) 0.6 x10^3/uL (1.0-4.8) Monocytes # (Auto) 0.5 x10^3/uL (0.0-1.1) Eosinophils # (Auto) 0.0 x10^3/uL (0.0-0.7) Basophils # (Auto) 0.0 x10^3/uL (0.0-0.2) Sodium Level 137 mmol/L (136-145) Potassium Level 4.5 mmol/L (3.5-5.1) Chloride Level 99 mmol/L (98-107) Carbon Dioxide Level 30 mmol/L (21-32) Anion Gap 8 (6-14) Blood Urea Nitrogen 23 mg/dL (7-20) Creatinine 1.5 mg/dL (0.6-1.0) Estimated GFR (Cockcroft-Gault) 40.9 Glucose Level 122 mg/dL (70-99) Calcium Level 8.6 mg/dL (8.5-10.1) Results All relevant outside records, renal labs, imaging studies, telemetry/EKG's were reviewed. Justicifation of Admission Dx: Justifications for Admission: Justification of Admission Dx: Yes ELIDA DELCID MD August 23, 2021 14:48
[2021-08-23 15:00] VITALS: BP 117/72
--- NOTE | 2021-08-23 15:11 | CONS ---
DATE OF CONSULTATION: 08/23/2021 REFERRING PHYSICIAN: Dr. Oconnor. REASON FOR CONSULTATION: Low-grade fever. HISTORY OF PRESENT ILLNESS: A 76-year-old female with history of COPD, congestive heart failure, hypothyroidism, morbid obesity, hypertension, hyperlipidemia, coronary artery disease, who underwent left knee replacement 3 weeks prior and was at [facility] and then was discharged to [facility] for rehab. The patient was discharged home a couple of days prior to presentation. She was noticed to have shortness of breath and swelling of both lower extremities. In the ER, her white count was normal. She was afebrile except for temperature of 99.9. In the ER, her white count was normal. BNP was high. D-dimer was high. CT scan of the chest was negative for PE. The patient went into HERMELINDA with underlying CKD. The patient was admitted for further evaluation and treatment. She received diuresis, currently remains on 2-3 liters O2 by nasal cannula. Denies any fevers, chills, nausea, vomiting, diarrhea, abdominal pain. Denies any symptoms. Her left knee incision is healing well. She still has sutures in place. She had developed a blister on the lateral aspect, but no drainage, no purulence. Currently, she is sitting on chair, talking to her family on cell phone. PAST MEDICAL HISTORY: Coronary artery disease, CHF, hypertension, AL, hyperlipidemia, COPD, anxiety, gout, chronic renal insufficiency, history of UTI, hypothyroidism. PAST SURGICAL HISTORY: Recent left TKA. FAMILY HISTORY: As per HPI. SOCIAL HISTORY: No alcohol, no smoking, no drugs. CURRENT MEDICATIONS: Levothyroxine, docusate, bisacodyl, magnesium oxide, Neosporin, bacitracin triple ointment, ferrous sulfate, cetirizine, Lipitor, budesonide, furosemide, gabapentin, nystatin, albuterol, ipratropium, multivitamin, montelukast, aspirin, nitrofurantoin, Senna-Docusate, hydroxychloroquine sulfate, hydrocodone, acetaminophen, vitamin D. PHYSICAL EXAMINATION: VITAL SIGNS: Temperature 98, pulse 81, respiratory rate 19, blood pressure 126/69, oxygen saturation 94% on 4 liters O2 by nasal cannula. GENERAL: Alert, oriented x 3 female sitting upright in chair, talking on phone, in no acute distress. T-max 99.1. HEENT: Normocephalic, atraumatic. Anicteric. No thrush. Oral mucosa moist. NECK: Supple. LUNGS: Few rhonchi, otherwise clear. No accessory muscle use. CARDIOVASCULAR: S1, S2. No murmurs. ABDOMEN: Soft, obese. Bowel sounds present. EXTREMITIES: 2+ edema. MUSCULOSKELETAL: Left knee incision well healed, intact, well approximated. Sutures in place. No drainage. There is a superficial blister, dry. No purulence on the lateral aspect, nontender. DERMATOLOGIC: Warm, dry, no generalized rash. LABORATORY DATA: AST 117, ALT 100. Lactate 1.5. MICRO: None. IMAGING: Lower extremity ultrasound noted. Chest CT noted. Chest x-ray noted. IMPRESSION: 1. Low-grade febrile illness. The patient is currently stable. Afebrile this morning. 2. Acute hypoxic respiratory failure, likely from underlying congestive heart failure. 3. Congestive heart failure with cardiomyopathy. 4. Acute kidney injury with chronic kidney disease. 5. History of recent left total knee arthroplasty with superficial blister, dry. Does not appear infected at this time. 6. Low-grade fever, appears noninfectious. 7. Abnormal D-dimer, nonspecific Doppler ultrasound, limited, but negative for deep venous thrombosis. 8. Morbid obesity. RECOMMENDATIONS: 1. Continue observation. 2. UA is negative. PT and OT as tolerated. 3. Wound care as directed. 4. Pulmonary team following. 5. Cardiology following. Thank you for allowing me to participate in this patient's care. If you have any questions, do not hesitate to contact me. STEPHANIE DR: Cande TID: [phone] [facility]
--- NOTE | 2021-08-23 15:23 | NUR ---
SS following up with discharge planning. SS reviewed pt chart and discussed with pt RN. Pt is from home and is currently requiring oxygen at four liters nasal canula. PT/OT recommended senior living unit. COVID19 negative. Pt accepted at [facility], ; fax [phone], and [facility], ; fax [phone], pending insurance approval. SS will continue to follow for discharge planning.
[2021-08-23 19:00] VITALS: BP 105/55
[2021-08-23] MEDS: ATORVASTATIN CALCIUM 20 MG TABLET PO SCH (20:53)
[2021-08-23 23:00] VITALS: BP 100/61
[2021-08-24 02:59] VITALS: BP 119/72
[2021-08-24] MEDS: LEVOTHYROXINE 175 MCG TABLET PO SCH (06:11)
[2021-08-24 06:44] LABS: BACTERIA,URINE FEW /HPF (0-FEW); RBC,URINE 0 /HPF (0-2)
[2021-08-24 07:00] VITALS: BP 123/52
[2021-08-24] MEDS: BUDESONIDE 0.5 MG/2 ML NEBU. NEB SCH ×2 (07:10→20:48)
[2021-08-24] MEDS: IPRATRPIUM/ALBUTEROL 0.5/2.5MG 3 ML NEBU. NEB SCH ×4 (07:10→20:48)
[2021-08-24] MEDS: CETIRIZINE HCL 10 MG TABLET. PO SCH (08:19)
[2021-08-24] MEDS: ASPIRIN CHEWABLE 81 MG TABLET. PO SCH (08:19)
[2021-08-24] MEDS: HYDROXYCHLOROQUINE 200 MG TABLET PO SCH ×2 (08:19→20:10)
[2021-08-24] MEDS: MONTELUKAST SODIUM 10 MG TABLET. PO SCH (08:19)
[2021-08-24] MEDS: GABAPENTIN 300 MG CAPSULE. PO SCH ×3 (08:19→20:10)
[2021-08-24] MEDS: MULTIVITAMIN with MINERAL TABLET. PO SCH (08:19)
[2021-08-24] MEDS: FERROUS SULFATE 325 MG TABLET. PO SCH (08:19)
[2021-08-24] MEDS: CHOLECALCIFEROL (VITAMIN D3) 1,000 UNIT TABLET PO SCH (08:20)
[2021-08-24] MEDS: BISACODYL 5 MG TABLET.DR. PO SCH (08:20)
[2021-08-24] MEDS: NEOMY/BACITR/POLYMYXIN OINT PACKET. TP SCH ×2 (08:20→21:41)
[2021-08-24] MEDS: FUROSEMIDE 20 MG/2 ML VIAL. IVP SCH ×2 (08:21→15:03)
[2021-08-24] MEDS: NYSTATIN TOPICAL POWDER 15GM BOTTLE. TP SCH ×2 (08:21→20:09)
--- NOTE | 2021-08-24 08:52 | PDOC ---
IM PROGRESS NOTES- Subjective Subjective Dyspnea,pain are improving. Objective Vitals/I&O Vital Signs Date Time Temp Pulse Resp B/P (MAP) Pulse Ox O2 Delivery O2 Flow Rate FiO2 08/24/21 07:10 95 Nasal Cannula 5.0 08/24/21 07:00 97.2 81 19 123/52 (75) 97.2 I & O 08/23/21 08/23/21 08/24/21 15:00 23:00 07:00 Intake Total 2000 ml 310 ml 0 ml Output Total 1000 ml 200 ml Balance 1000 ml 310 ml -200 ml Physical Exam Physical Exam General Appearance - alert and in no distress Chest - decreased breath sounds at bases Heart - S1 and S2 normal Abdomen - soft, non tender Neurological - alert and oriented Musculoskeletal - generalized weakness Extremities - + edema Labs Laboratory Tests Test 08/24/21 06:00 Urine Collection Type Unknown Urine Color (Auto) Light yellow Urine Turbidity Clear Urine pH (Auto) 5.5 (<5.0-8.0) Urine Specific [place] 1.014 (1.000-1.030) Urine Protein (Auto) Negative mg/dL (Negative) Urine Glucose (Auto)(UA) Negative mg/dL (Negative) Urine Ketones (Auto) Negative mg/dL (Negative) Urine Blood (Auto) Negative (Negative) Urine Nitrite Negative (Negative) Urine Bilirubin (Auto) Negative (Negative) Urine Urobilinogen (Auto) Normal mg/dL (Normal) Urine Leukocyte Esterase (Auto) Small (Negative) Urine RBC 0 /HPF (0-2) Urine WBC 1-4 /HPF (0-4) Urine Squamous Epithelial Cells Mod /LPF Urine Bacteria Few /HPF (0-FEW) Assessment Assessment 1. Acute on chronic congestive heart failure. 2. Elevated troponin, rule out silent myocardial infarction. 3. Kidney disease, creatinine 2.3. 4. Morbid obesity. 5. Recent left knee replacement. 6. Hypertension. 7. Hyperlipidemia. 8. Hypothyroidism. 9. Acute hypoxic respiratory failure. PLAN: At this time, admit to hospital, was given IV Lasix, subcutaneous heparin 3 times daily for DVT prophylaxis. Cardiology consultation, serial cardiac enzymes and see how the patient's improves in the next 24-48 hours. Acute hypoxic respiratory failure. Likely due to CHF. O2 by n/c. Low grade fever- monitor. CT chest report pending. Consult . Acute on chronic congestive heart failure.Diuretics. Cardiology consult appreciated. CKD- Creat decreased from 2.3 to 1.9. Renal consult. Fever- Labs,consult ID.Etiology not clear. D Dimer 10- Venous doppler lower extremity- no DVT on limited evaluation. Rt knee pain is improving. She had a steroid injection . Awaiting placement. Clinically improving. Discharge management 35 minutes. Plan Plan For more details regarding further plans, please refer to the orders. Justifications for Admission Other Justification ALCIDES SWANSON MD August 24, 2021 08:52
--- NOTE | 2021-08-24 09:15 | PDOC ---
DATE OF SERVICE DATE: 08/24/21 TIME: 09:15 SUBJECTIVE ROS No complaints, denies SOB OBJECTIVE Vital Signs Vital Signs Date Time Temp Pulse Resp B/P (MAP) Pulse Ox O2 Delivery O2 Flow Rate FiO2 08/24/21 07:10 95 Nasal Cannula 5.0 08/24/21 07:00 97.2 81 19 123/52 (75) 97.2 I & 0 Intake and Output 08/24/21 07:00 Intake Total 2310 ml Output Total 1200 ml Balance 1110 ml Intake Oral 2310 ml Output Urine Total 1200 ml # Bowel Movements 1 PHYSICAL EXAM Physical Exam GENERAL: NAD, Morbidly obese HEENT: OM moist, On o2 by NC NECK: Supple. CV : S1, S2. No murmurs. LUNGS: CTA Bilat, Decreased at bases , Non labored ABDOMEN: Obese. NT : No Borden. EXTREMITIES: recent left knee replacement . trace -1 + LE edema NEUROLOGIC: Moving all extremities. No focal deficits noted. DIAGNOSIS/ASSESSMENT Assessment & Plan DIAGNOSIS/ASSESSMENT Assessment & Plan DIAGNOSIS/ASSESSMENT Assessment & Plan HERMELINDA - Cardiorenal , Creatinine back to her baseline . UA unremarkable.diuretics, Cardiology managing . Avoid nephrotoxins, Supportive care ,. daily standing weight CKD -Baseline Creatinine 1.4-1.9 with intermittent HERMELINDA. Seen as OP in our office in May 2021 as Initial consult . Keep fu appt after dc Renal Cysts -US 05/2021 -multiple simple appearing right renal cysts, the largest of which measures 3.4 cm. Acute on chronic congestive heart failure getting IV Lasix . Card managing Morbid obesity. Recent left knee replacement. Hypertension- BP low currently , Monitor closely Anemia- Hgb normal Awaiting dc to Rehab COMMENT/RELEVANT DATA Meds Current Medications Medications (Trade) Dose Ordered Sig/Negro Start Time Stop Time Status Last Admin Dose Admin Acetaminophen (Tylenol) 650 mg PRN Q6HRS PRN 08/20/21 10:00 08/21/21 21:11 650 MG Acetaminophen/ Hydrocodone Bitart (Lortab 5/325) 1 tab PRN Q6HRS PRN 08/20/21 01:00 08/21/21 08:31 1 TAB Acetaminophen/ Hydrocodone Bitart (Lortab 7.5/325) 1 tab PRN Q6HRS PRN 08/20/21 10:00 08/23/21 20:53 1 TAB Albuterol/ Ipratropium (Duoneb) 3 ml RTQID 08/20/21 12:00 08/24/21 07:10 3 ML Aspirin (Aspirin Chewable) 81 mg DAILY 08/20/21 10:30 08/24/21 08:19 81 MG Atorvastatin Calcium (Lipitor) 20 mg HS 08/20/21 21:00 08/23/21 20:53 20 MG Bisacodyl (Dulcolax Tab) 10 mg DAILY 08/22/21 14:00 08/24/21 08:20 10 MG Budesonide (Pulmicort) 0.5 mg RTBID 08/20/21 20:00 08/24/21 07:10 0.5 MG Bupivacaine HCl (Sensorcaine-Mpf 0.25%) 10 ml 1X ONCE 08/22/21 13:15 08/22/21 13:26 DC 08/22/21 13:40 10 ML Cetirizine HCl (ZyrTEC) 10 mg DAILY 08/21/21 09:00 08/24/21 08:19 10 MG Diclofenac Sodium (Voltaren) 1 godwin PRN DAILY PRN 08/20/21 10:15 Docusate Sodium (Enemeez) 283 mg PRN DAILY PRN 08/22/21 14:00 Ferrous Sulfate (Feosol) 325 mg DAILY 08/21/21 09:00 08/24/21 08:19 325 MG Furosemide (Lasix) 40 mg 1X ONCE 08/20/21 10:00 08/20/21 10:16 DC 08/20/21 10:32 40 MG Gabapentin (Neurontin) 300 mg TID 08/20/21 14:00 08/24/21 08:19 300 MG Heparin Sodium (Porcine) (Heparin Sodium) 5,000 unit Q8HRS 08/20/21 10:00 08/23/21 23:41 5,000 UNIT Hydroxychloroquine Sulfate (Plaquenil) 200 mg BID 08/20/21 10:00 08/24/21 08:19 200 MG Levothyroxine Sodium (Synthroid) 175 mcg DAILY06 08/23/21 06:00 08/24/21 06:11 175 MCG Magnesium Hydroxide (Milk Of Magnesia) 2,400 mg PRN DAILY PRN 08/22/21 14:00 Montelukast Sodium (Singulair) 10 mg DAILY 08/20/21 10:30 08/24/21 08:19 10 MG Multivitamins (Thera M Plus) 1 tab DAILY 08/20/21 10:30 08/24/21 08:19 1 TAB Neomycin/ Polymyxin/ Bacitracin (Triple Antibiotic Ointment) 1 pkt BID 08/22/21 14:00 08/24/21 08:20 1 PKT Non-Formulary Medication (Budesonide/ Formoterol Fumarate (Symbicort 160-4.5 Mcg Inhaler)) 2 puff BID 08/20/21 21:00 08/20/21 10:16 DC Nystatin (Nystop) 1 godwin BID 08/20/21 13:00 08/24/21 08:21 1 GODWIN Senna/Docusate Sodium (Senna Plus) 2 tab PRN BID PRN 08/20/21 10:00 Triamcinolone Acetonide (Kenalog-40) 40 mg 1X ONCE 08/22/21 13:15 08/22/21 13:26 DC 08/22/21 13:40 40 MG Vitamin D (Vitamin D3) 2,000 unit DAILY 08/20/21 09:00 08/24/21 08:20 2,000 UNIT Lab Laboratory Tests Test 08/24/21 06:00 Urine Collection Type Unknown Urine Color (Auto) Light yellow Urine Turbidity Clear Urine pH (Auto) 5.5 (<5.0-8.0) Urine Specific [place] 1.014 (1.000-1.030) Urine Protein (Auto) Negative mg/dL (Negative) Urine Glucose (Auto)(UA) Negative mg/dL (Negative) Urine Ketones (Auto) Negative mg/dL (Negative) Urine Blood (Auto) Negative (Negative) Urine Nitrite Negative (Negative) Urine Bilirubin (Auto) Negative (Negative) Urine Urobilinogen (Auto) Normal mg/dL (Normal) Urine Leukocyte Esterase (Auto) Small (Negative) Urine RBC 0 /HPF (0-2) Urine WBC 1-4 /HPF (0-4) Urine Squamous Epithelial Cells Mod /LPF Urine Bacteria Few /HPF (0-FEW) Results All relevant outside records, renal labs, imaging studies, telemetry/EKG's were reviewed. Justicifation of Admission Dx: Justifications for Admission: Justification of Admission Dx: Yes ELIDA DELCID MD August 24, 2021 09:15
--- NOTE | 2021-08-24 09:19 | PDOC ---
PROGRESS NOTES Date of Service DATE: 08/24/21 TIME: 09:16 Subjective Subjective No new complaints. Objective Objective Vital Signs Date Time Temp Pulse Resp B/P (MAP) Pulse Ox O2 Delivery O2 Flow Rate FiO2 08/24/21 07:10 95 Nasal Cannula 5.0 08/24/21 07:00 97.2 81 19 123/52 (75) 97.2 Intake and Output 08/24/21 07:00 Intake Total 2310 ml Output Total 1200 ml Balance 1110 ml Intake Oral 2310 ml Output Urine Total 1200 ml # Bowel Movements 1 Physical Exam Physical Exam She is alert,supine in bed and she got up with physical therapy requiring assistance with bed mobility and transfers and she made a few steps with roller walker with physical therapy yesterday and she had a bowel movement yesterday. Assessment Assessment Problems Medical Problems: (1) CHF exacerbation Status: Acute Plan Plan of Care To custodial facility for continued care when arrangements are completed. Comment Review of Relevant I have reviewed the following items swathi (where applicable) has been applied. Labs Laboratory Tests Test 08/22/21 14:52 08/23/21 04:20 08/23/21 04:30 08/24/21 06:00 Coronavirus (COVID-19)(PCR) Not detected (NOT DETECTD) Triglycerides Level 36 mg/dL (0-150) Cholesterol Level 98 mg/dL (0-200) LDL Cholesterol, Calculated 41 mg/dL (0-100) VLDL Cholesterol, Calculated 7 mg/dL (0-40) Non-HDL Cholesterol Calculated 48 mg/dL (0-129) HDL Cholesterol 50 mg/dL (40-60) Cholesterol/HDL Ratio 2.0 Thyroid Stimulating Hormone (TSH) 0.430 uIU/mL (0.358-3.74) White Blood Count 9.9 x10^3/uL (4.0-11.0) Red Blood Count 3.48 x10^6/uL (3.50-5.40) Hemoglobin 9.7 g/dL (12.0-15.5) Hematocrit 31.3 % (36.0-47.0) Mean Corpuscular Volume 90 fL (79-100) Mean Corpuscular Hemoglobin 28 pg (25-35) Mean Corpuscular Hemoglobin Concent 31 g/dL (31-37) Red Cell Distribution Width 16.5 % (11.5-14.5) Platelet Count 256 x10^3/uL (140-400) Neutrophils (%) (Auto) 89 % (31-73) Lymphocytes (%) (Auto) 7 % (24-48) Monocytes (%) (Auto) 5 % (0-9) Eosinophils (%) (Auto) 0 % (0-3) Basophils (%) (Auto) 0 % (0-3) Neutrophils # (Auto) 8.8 x10^3/uL (1.8-7.7) Lymphocytes # (Auto) 0.6 x10^3/uL (1.0-4.8) Monocytes # (Auto) 0.5 x10^3/uL (0.0-1.1) Eosinophils # (Auto) 0.0 x10^3/uL (0.0-0.7) Basophils # (Auto) 0.0 x10^3/uL (0.0-0.2) Sodium Level 137 mmol/L (136-145) Potassium Level 4.5 mmol/L (3.5-5.1) Chloride Level 99 mmol/L (98-107) Carbon Dioxide Level 30 mmol/L (21-32) Anion Gap 8 (6-14) Blood Urea Nitrogen 23 mg/dL (7-20) Creatinine 1.5 mg/dL (0.6-1.0) Estimated GFR (Cockcroft-Gault) 40.9 Glucose Level 122 mg/dL (70-99) Calcium Level 8.6 mg/dL (8.5-10.1) Urine Collection Type Unknown Urine Color (Auto) Light yellow Urine Turbidity Clear Urine pH (Auto) 5.5 (<5.0-8.0) Urine Specific [place] 1.014 (1.000-1.030) Urine Protein (Auto) Negative mg/dL (Negative) Urine Glucose (Auto)(UA) Negative mg/dL (Negative) Urine Ketones (Auto) Negative mg/dL (Negative) Urine Blood (Auto) Negative (Negative) Urine Nitrite Negative (Negative) Urine Bilirubin (Auto) Negative (Negative) Urine Urobilinogen (Auto) Normal mg/dL (Normal) Urine Leukocyte Esterase (Auto) Small (Negative) Urine RBC 0 /HPF (0-2) Urine WBC 1-4 /HPF (0-4) Urine Squamous Epithelial Cells Mod /LPF Urine Bacteria Few /HPF (0-FEW) Laboratory Tests Test 08/24/21 06:00 Urine Collection Type Unknown Urine Color (Auto) Light yellow Urine Turbidity Clear Urine pH (Auto) 5.5 (<5.0-8.0) Urine Specific [place] 1.014 (1.000-1.030) Urine Protein (Auto) Negative mg/dL (Negative) Urine Glucose (Auto)(UA) Negative mg/dL (Negative) Urine Ketones (Auto) Negative mg/dL (Negative) Urine Blood (Auto) Negative (Negative) Urine Nitrite Negative (Negative) Urine Bilirubin (Auto) Negative (Negative) Urine Urobilinogen (Auto) Normal mg/dL (Normal) Urine Leukocyte Esterase (Auto) Small (Negative) Urine RBC 0 /HPF (0-2) Urine WBC 1-4 /HPF (0-4) Urine Squamous Epithelial Cells Mod /LPF Urine Bacteria Few /HPF (0-FEW) Medications Current Medications Acetaminophen/ Hydrocodone Bitart (Lortab 5/325) 1 tab PRN Q6HRS PRN PO MODERATE PAIN Last administered on 08/21/21at 08:31; Start 08/20/21 at 01:00 Acetaminophen (Tylenol) 650 mg PRN Q6HRS PRN PO MILD PAIN / TEMP > 100.3'F Last administered on 08/21/21at 21:11; Start 08/20/21 at 10:00 Aspirin (Aspirin Chewable) 81 mg DAILY PO Last administered on 08/24/21 08:19; Start 08/20/21 at 10:30 Atorvastatin Calcium (Lipitor) 20 mg HS PO Last administered on 08/23/21at 20:53; Start 08/20/21 at 21:00 Cetirizine HCl (ZyrTEC) 10 mg DAILY PO Last administered on 08/24/21 08:19; Start 08/21/21 at 09:00 Vitamin D (Vitamin D3) 2,000 unit DAILY PO Last administered on 08/24/21 08:20; Start 08/20/21 at 09:00 Ferrous Sulfate (Feosol) 325 mg DAILY PO Last administered on 08/24/21 08:19; Start 08/21/21 at 09:00 Gabapentin (Neurontin) 300 mg TID PO Last administered on 08/24/21 08:19; Start 08/20/21 at 14:00 Acetaminophen/ Hydrocodone Bitart (Lortab 7.5/325) 1 tab PRN Q6HRS PRN PO SEVERE PAIN Last administered on 08/23/21 20:53; Start 08/20/21 at 10:00 Hydroxychloroquine Sulfate (Plaquenil) 200 mg BID PO Last administered on 08/24/21 08:19; Start 08/20/21 at 10:00 Levothyroxine Sodium (Synthroid) 175 mcg DAILY PO Last administered on 08/22/21 08:02; Start 08/21/21 at 09:00; Stop 08/22/21 at 16:22; Status DC Montelukast Sodium (Singulair) 10 mg DAILY PO Last administered on 08/24/21 08:19; Start 08/20/21 at 10:30 Multivitamins (Thera M Plus) 1 tab DAILY PO Last administered on 08/24/21 08:19; Start 08/20/21 at 10:30 Senna/Docusate Sodium (Senna Plus) 2 tab PRN BID PRN PO CONSTIPATION-1st option; Start 08/20/21 at 10:00 Non-Formulary Medication (Budesonide/ Formoterol Fumarate (Symbicort 160-4.5 Mcg Inhaler)) 2 puff BID IH ; Start 08/20/21 at 21:00; Stop 08/20/21 at 10:16; Status DC Diclofenac Sodium (Voltaren) 1 shaka PRN DAILY PRN TP PAIN; Start 08/20/21 at 10:15 Heparin Sodium (Porcine) (Heparin Sodium) 5,000 unit Q8HRS SQ Last administered on 08/23/21 23:41; Start 08/20/21 at 10:00 Furosemide (Lasix) 20 mg BID92 IVP Last administered on 08/24/21 08:21; Start 08/20/21 at 14:00 Furosemide (Lasix) 40 mg 1X ONCE IVP Last administered on 08/20/21at 10:32; Start 08/20/21 at 10:00; Stop 08/20/21 at 10:16; Status DC Albuterol/ Ipratropium (Duoneb) 3 ml 1X ONCE NEB Last administered on 08/20/21at 11:55; Start 08/20/21 at 10:00; Stop 08/20/21 at 10:16; Status DC Albuterol/ Ipratropium (Duoneb) 3 ml RTQID NEB Last administered on 08/24/21at 07:10; Start 08/20/21 at 12:00 Budesonide (Pulmicort) 0.5 mg RTBID NEB Last administered on 08/24/21at 07:10; Start 08/20/21 at 20:00 Nystatin (Nystop) 1 shaka BID TP Last administered on 08/24/21at 08:21; Start 08/20/21 at 13:00 Triamcinolone Acetonide (Kenalog-40) 40 mg 1X ONCE INT ART Last administered on 08/22/21at 13:40; Start 08/22/21 at 13:15; Stop 08/22/21 at 13:26; Status DC Bupivacaine HCl (Sensorcaine-Mpf 0.25%) 10 ml 1X ONCE IJ Last administered on 08/22/21at 13:40; Start 08/22/21 at 13:15; Stop 08/22/21 at 13:26; Status DC Neomycin/ Polymyxin/ Bacitracin (Triple Antibiotic Ointment) 1 pkt BID TP Last administered on 08/24/21at 08:20; Start 08/22/21 at 14:00 Magnesium Hydroxide (Milk Of Magnesia) 2,400 mg PRN DAILY PRN PO CONSTIPATION- 2nd option; Start 08/22/21 at 14:00 Bisacodyl (Dulcolax Tab) 10 mg DAILY PO Last administered on 08/24/21at 08:20; Start 08/22/21 at 14:00 Docusate Sodium (Enemeez) 283 mg PRN DAILY PRN NM CONSTIPATION; Start 08/22/21 at 14:00 Levothyroxine Sodium (Synthroid) 175 mcg DAILY06 PO Last administered on 08/24/21at 06:11; Start 08/23/21 at 06:00 Active Scripts Active Furosemide 40 Mg Tablet 40 Mg PO BID 30 Days Nyamyc (Nystatin) 15 Gm Powder 1 Shaka TP BID 14 Days Heparin Sodium (Heparin Sodium,Porcine) 5,000 Unit/1 Ml Vial 5,000 Unit SQ Q8HRS 14 Days Duoneb 0.5-3(2.5) Mg/3 Ml (Albuterol/Ipratropium) 3 Ml Ampul.neb 3 Ml NEB RTQID 30 Days Thera-M Tablet (Multivits,Ca,Minerals/Iron/Fa) 1 Each Tablet 1 Tab PO DAILY 30 Days Stool Soft-Stimulant Lax Tab (Sennosides/Docusate Sodium) 1 Each Tablet 2 Tab PO PRN BID PRN 30 Days Acetaminophen 325 Mg Tablet 650 Mg PO PRN Q6HRS PRN 7 Days Reported Potassium Chloride (Potassium Chloride) 20 Meq Tablet.er 20 Meq PO DAILY Losartan Potassium 50 Mg Tablet 25 Mg PO DAILY Colcrys (Colchicine) 0.6 Mg Tablet 1 Tab PO DAILY 30 Days Clopidogrel (Clopidogrel Bisulfate) 75 Mg Tablet 1 Tab PO DAILY Atenolol 25 Mg Tablet 1 Tab PO DAILY Levothyroxine Sodium 175 Mcg Tablet 1 Tab PO DAILY Aspirin 81 Mg Tab.chew 81 Mg PO DAILY Diclofenac Sodium 100 Gm Gel..gram. 100 Gm TP PRN PRN Hydroxychloroquine Sulfate 200 Mg Tablet 1 Tab PO BID Vitamin D3 (Cholecalciferol (Vitamin D3)) 1,000 Unit Tablet 2,000 Unit PO DAILY Atorvastatin Calcium 20 Mg Tablet 20 Mg PO HS Ferrous Sulfate 325 Mg Tablet 325 Mg PO DAILY Hydrocodone-Apap 7.5-325 (Hydrocodone Bit/Acetaminophen) 1 Each Tablet 1 Tab PO PRN Q6HRS PRN Symbicort 160-4.5 Mcg Inhaler (Budesonide/Formoterol Fumarate) 10.2 Gm Hfa.aer.ad 2 Puff IH BID Singulair Tablet (Montelukast Sodium) 10 Mg Tablet 1 Tab PO DAILY Cetirizine Hcl 10 Mg Tablet 1 Tab PO DAILY Gabapentin (Gabapentin) 300 Mg Capsule 1 Cap PO TID Vitals/I & O Vital Sign - Last 24 Hours 08/23/21 08/23/21 08/23/21 08/23/21 10:45 11:37 11:41 12:58 Temp 98.0 98.0 Pulse 81 Resp 19 B/P (MAP) 126/69 (88) Pulse Ox 97 94 94 94 O2 Delivery Nasal Cannula Nasal Cannula Nasal Cannula Nasal Cannula O2 Flow Rate 5.0 4.0 4.0 4.0 08/23/21 08/23/21 08/23/21 08/23/21 15:00 15:30 19:00 20:00 Temp 97.7 98.3 97.7 98.3 Pulse 82 83 Resp 18 18 B/P (MAP) 117/72 (87) 105/55 (72) Pulse Ox 95 98 O2 Delivery Nasal Cannula Nasal Cannula Nasal Cannula Nasal Cannula O2 Flow Rate 5.0 4.0 5.0 3.0 08/23/21 08/23/21 08/24/21 08/24/21 20:35 23:00 02:59 07:00 Temp 98.0 97.7 97.2 98.0 97.7 97.2 Pulse 86 82 81 Resp 17 16 19 B/P (MAP) 100/61 (74) 119/72 (88) 123/52 (75) Pulse Ox 93 99 99 97 O2 Delivery Nasal Cannula Nasal Cannula Nasal Cannula Nasal Cannula O2 Flow Rate 5.0 5.0 5.0 5.0 08/24/21 07:10 Pulse Ox 95 O2 Delivery Nasal Cannula O2 Flow Rate 5.0 Intake and Output 08/23/21 08/23/21 08/24/21 15:00 23:00 07:00 Intake Total 2000 ml 310 ml 0 ml Output Total 1000 ml 200 ml Balance 1000 ml 310 ml -200 ml Justifications for Admission Other Justification BRIDGET CRANDALL MD August 24, 2021 09:19
--- NOTE | 2021-08-24 09:46 | PDOC ---
TOMASZ ROOT CROWN PRESSER 08/24/21 0946: CARDIO Progress Notes Date and Time Date of Service 08/24/21 Time of Evaluation 1145 Subjective Subjective: No Chest Pain, No shortness of breath, No Palpitations, No Dizziness, Other (feeling better) Vitals Vitals Vital Signs Date Time Temp Pulse Resp B/P (MAP) Pulse Ox O2 Delivery O2 Flow Rate FiO2 08/24/21 08:00 Nasal Cannula 3.0 08/24/21 07:10 95 08/24/21 07:00 97.2 81 19 123/52 (75) 97.2 Weight Weight [ ] Input and Output Intake and Output Intake and Output0 08/24/21 07:00 Intake Total 2310 ml Output Total 1200 ml Balance 1110 ml Intake Oral 2310 ml Output Urine Total 1200 ml # Bowel Movements 1 Laboratory Labs Laboratory Tests Test 08/24/21 06:00 Urine Collection Type Unknown Urine Color (Auto) Light yellow Urine Turbidity Clear Urine pH (Auto) 5.5 (<5.0-8.0) Urine Specific [place] 1.014 (1.000-1.030) Urine Protein (Auto) Negative mg/dL (Negative) Urine Glucose (Auto)(UA) Negative mg/dL (Negative) Urine Ketones (Auto) Negative mg/dL (Negative) Urine Blood (Auto) Negative (Negative) Urine Nitrite Negative (Negative) Urine Bilirubin (Auto) Negative (Negative) Urine Urobilinogen (Auto) Normal mg/dL (Normal) Urine Leukocyte Esterase (Auto) Small (Negative) Urine RBC 0 /HPF (0-2) Urine WBC 1-4 /HPF (0-4) Urine Squamous Epithelial Cells Mod /LPF Urine Bacteria Few /HPF (0-FEW) Physical Exam HEENT: Neck Supple W Full Motion Chest: Symmetric LUNGS: Other (diminished ) Heart: RRR Abdomen: Soft N/T Extremities: Other (1-2+ bilateral LE edema ) Neurology: alert, oriented, follow commands Assessment Assessment 1. NSTEMI; peak 191. most likely type II, demand ischemia 2. Acute on chronic systolic and diastolic heart failure; improved s/p IV diuresis 3. Cardiomyopathy; Echo 03/13 with LVEF 40-45% 4. HERMELINDA on CKD; Cr improved, stable 5. CAD s/p PCI/stent; clinically stable. MPI 08/10 with fixed defect. 6. Hypertension; controlled 7. Dyslipidemia; statin 8. Morbid obesity 9. Hypothyroidism; on replacement Recommendations Ongoing diuresis HF optimization Secondary prevention Outpatient ischemic evaluation Supportive care Follow up in our office with Dr. Mann has been arranged Justicifation of Admission Dx: Justifications for Admission: Justification of Admission Dx: Yes SHASHANK MANN MD 08/24/21 1617: CARDIO Progress Notes Assessment Assessment Patient seen and examined. Agree with EDUCATION TRAINER's assessment and plan. Acute on chronic combined systolic and diastolic heart failure better compensated with diuresis. Non-STEMI most probably type II/demand ischemia. Continue current medical regimen Plan outpatient ischemic evaluation Follow-up as scheduled. TOMASZ ROOT APRN August 24, 2021 09:46 SHASHANK MANN MD August 24, 2021 16:17
[2021-08-24 10:38] VITALS: BP 118/68
--- NOTE | 2021-08-24 11:03 | PDOC ---
PULMONARY PROGRESS NOTES DATE: 08/24/21 TIME: 11:03 Subjective Patient continues to be short of breath at times Vitals Vital Signs Date Time Temp Pulse Resp B/P (MAP) Pulse Ox O2 Delivery O2 Flow Rate FiO2 08/24/21 10:38 98.2 84 19 118/68 (85) 95 Nasal Cannula 5.0 98.2 ROS: No Nausea, No Chest Pain, No Abdominal Pain, No Increase Cough General: Alert HEENT: Other Lungs: Clear Cardiovascular: S1, S2 Abdomen: Soft, Other Neuro Exam: Alert Extremities: Other Skin: Warm (Edema) Labs Laboratory Tests Test 08/22/21 14:52 08/23/21 04:20 08/23/21 04:30 08/24/21 06:00 Coronavirus (COVID-19)(PCR) Not detected (NOT DETECTD) Triglycerides Level 36 mg/dL (0-150) Cholesterol Level 98 mg/dL (0-200) LDL Cholesterol, Calculated 41 mg/dL (0-100) VLDL Cholesterol, Calculated 7 mg/dL (0-40) Non-HDL Cholesterol Calculated 48 mg/dL (0-129) HDL Cholesterol 50 mg/dL (40-60) Cholesterol/HDL Ratio 2.0 Thyroid Stimulating Hormone (TSH) 0.430 uIU/mL (0.358-3.74) White Blood Count 9.9 x10^3/uL (4.0-11.0) Red Blood Count 3.48 x10^6/uL (3.50-5.40) Hemoglobin 9.7 g/dL (12.0-15.5) Hematocrit 31.3 % (36.0-47.0) Mean Corpuscular Volume 90 fL (79-100) Mean Corpuscular Hemoglobin 28 pg (25-35) Mean Corpuscular Hemoglobin Concent 31 g/dL (31-37) Red Cell Distribution Width 16.5 % (11.5-14.5) Platelet Count 256 x10^3/uL (140-400) Neutrophils (%) (Auto) 89 % (31-73) Lymphocytes (%) (Auto) 7 % (24-48) Monocytes (%) (Auto) 5 % (0-9) Eosinophils (%) (Auto) 0 % (0-3) Basophils (%) (Auto) 0 % (0-3) Neutrophils # (Auto) 8.8 x10^3/uL (1.8-7.7) Lymphocytes # (Auto) 0.6 x10^3/uL (1.0-4.8) Monocytes # (Auto) 0.5 x10^3/uL (0.0-1.1) Eosinophils # (Auto) 0.0 x10^3/uL (0.0-0.7) Basophils # (Auto) 0.0 x10^3/uL (0.0-0.2) Sodium Level 137 mmol/L (136-145) Potassium Level 4.5 mmol/L (3.5-5.1) Chloride Level 99 mmol/L (98-107) Carbon Dioxide Level 30 mmol/L (21-32) Anion Gap 8 (6-14) Blood Urea Nitrogen 23 mg/dL (7-20) Creatinine 1.5 mg/dL (0.6-1.0) Estimated GFR (Cockcroft-Gault) 40.9 Glucose Level 122 mg/dL (70-99) Calcium Level 8.6 mg/dL (8.5-10.1) Urine Collection Type Unknown Urine Color (Auto) Light yellow Urine Turbidity Clear Urine pH (Auto) 5.5 (<5.0-8.0) Urine Specific [place] 1.014 (1.000-1.030) Urine Protein (Auto) Negative mg/dL (Negative) Urine Glucose (Auto)(UA) Negative mg/dL (Negative) Urine Ketones (Auto) Negative mg/dL (Negative) Urine Blood (Auto) Negative (Negative) Urine Nitrite Negative (Negative) Urine Bilirubin (Auto) Negative (Negative) Urine Urobilinogen (Auto) Normal mg/dL (Normal) Urine Leukocyte Esterase (Auto) Small (Negative) Urine RBC 0 /HPF (0-2) Urine WBC 1-4 /HPF (0-4) Urine Squamous Epithelial Cells Mod /LPF Urine Bacteria Few /HPF (0-FEW) Laboratory Tests Test 08/24/21 06:00 Urine Collection Type Unknown Urine Color (Auto) Light yellow Urine Turbidity Clear Urine pH (Auto) 5.5 (<5.0-8.0) Urine Specific [place] 1.014 (1.000-1.030) Urine Protein (Auto) Negative mg/dL (Negative) Urine Glucose (Auto)(UA) Negative mg/dL (Negative) Urine Ketones (Auto) Negative mg/dL (Negative) Urine Blood (Auto) Negative (Negative) Urine Nitrite Negative (Negative) Urine Bilirubin (Auto) Negative (Negative) Urine Urobilinogen (Auto) Normal mg/dL (Normal) Urine Leukocyte Esterase (Auto) Small (Negative) Urine RBC 0 /HPF (0-2) Urine WBC 1-4 /HPF (0-4) Urine Squamous Epithelial Cells Mod /LPF Urine Bacteria Few /HPF (0-FEW) Medications Active Scripts Medications Dose Route/Sig Max Daily Dose Days Date Category Furosemide 40 Mg Tablet 40 Mg PO BID 30 08/22/21 Rx Nyamyc (Nystatin) 15 Gm Powder 1 Shaka TP BID 14 08/22/21 Rx Heparin Sodium (Heparin Sodium,Porcine) 5,000 Unit/1 Ml Vial 5,000 Unit SQ Q8HRS 08/22/21 Rx Duoneb 0.5-3(2.5) Mg/3 Ml (Albuterol/Ipratropium) 3 Ml Ampul.neb 3 Ml NEB RTQID 30 08/22/21 Rx Potassium Chloride (Potassium Chloride) 20 Meq Tablet.er 20 Meq PO DAILY 08/20/21 Reported Losartan Potassium 50 Mg Tablet 25 Mg PO DAILY 08/20/21 Reported Colcrys (Colchicine) 0.6 Mg Tablet 1 Tab PO DAILY 30 08/20/21 Reported Clopidogrel (Clopidogrel Bisulfate) 75 Mg Tablet 1 Tab PO DAILY 08/20/21 Reported Atenolol 25 Mg Tablet 1 Tab PO DAILY 08/20/21 Reported Thera-M Tablet (Multivits,Ca,Minerals/Iron/Fa) 1 Each Tablet 1 Tab PO DAILY 30 07/29/21 Rx Levothyroxine Sodium 175 Mcg Tablet 1 Tab PO DAILY 07/27/21 Reported Stool Soft-Stimulant Lax Tab (Sennosides/Docusate Sodium) 1 Each Tablet 2 Tab PO PRN BID PRN 30 12/03/20 Rx Acetaminophen 325 Mg Tablet 650 Mg PO PRN Q6HRS PRN 7 12/03/20 Rx Aspirin 81 Mg Tab.chew 81 Mg PO DAILY 11/30/20 Reported Diclofenac Sodium 100 Gm Gel..gram. 100 Gm TP PRN PRN 07/09/20 Reported Hydroxychloroquine Sulfate 200 Mg Tablet 1 Tab PO BID 07/09/20 Reported Vitamin D3 (Cholecalciferol (Vitamin D3)) 1,000 Unit Tablet 2,000 Unit PO DAILY 01/24/18 Reported Atorvastatin Calcium 20 Mg Tablet 20 Mg PO HS 01/24/18 Reported Ferrous Sulfate 325 Mg Tablet 325 Mg PO DAILY 02/09/17 Reported Hydrocodone-Apap 7.5-325 (Hydrocodone Bit/Acetaminophen) 1 Each Tablet 1 Tab PO PRN Q6HRS PRN 02/09/17 Reported Symbicort 160-4.5 Mcg Inhaler (Budesonide/Formoterol Fumarate) 10.2 Gm Hfa.aer.ad 2 Puff IH BID 02/09/17 Reported Singulair Tablet (Montelukast Sodium) 10 Mg Tablet 1 Tab PO DAILY 04/27/14 Reported Cetirizine Hcl 10 Mg Tablet 1 Tab PO DAILY 04/27/14 Reported Gabapentin (Gabapentin) 300 Mg Capsule 1 Cap PO TID 04/27/14 Reported Impression . IMPRESSION: 1. Acute hypoxic respiratory failure secondary to [id number] systolic congestive heart failure. 2. The patient with known cardiomyopathy with an ejection fraction of 40% based on echo from 02/2021. No significant valvular heart disease. Would recommend repeating an echo. 3. Acute kidney injury. 4. Abnormal D-dimer, which is nonspecific and could be related to congestive heart failure; however, we will obtain venous Dopplers of lower extremities to rule out deep venous thrombosis. 5. 50 years of tobaccoism. Suspect underlying chronic obstructive pulmonary disease. Plan . Updated 08/24 Social service working on placement Continue current oxygen supplementation Continue optimizing treatment for heart failure Venous Dopplers negative, limited study PFT as an outpatient SOLITARIO BULLOCK MD August 24, 2021 11:03
[2021-08-24 13:51] LABS: CALCIUM 8.7 mg/dL (8.5-10.1); CREATININE 1.6 mg/dL (0.6-1.0); GFR 37.9; MAGNESIUM 2.2 mg/dL (1.8-2.4)
--- NOTE | 2021-08-24 14:34 | NUR ---
SS following up with discharge planning. SS reviewed pt chart and discussed with pt RN. Pt is from home and is currently requiring oxygen at five liters nasal canula. PT/OT recommended senior living unit. COVID19 negative. Pt accepted at [facility], ; fax [phone], pending insurance approval. [facility] reported that they now have to decline due to staffing. SS met with pt and family in room to discuss other senior living options. Pt and family requested referral to [facility], ; fax [phone]. Referral sent as requested. SS will continue to follow for discharge planning.
[2021-08-24 14:42] VITALS: BP 117/53
[2021-08-24] MEDS: HEPARIN for SUB-Q USE 5,000 UNIT/ML VIAL. SQ SCH ×2 (15:04→21:39)
--- NOTE | 2021-08-24 15:25 | PDOC ---
Infectious Disease Note Subjective: Subjective Patient without complaints Denies any fever, chills, nausea, vomiting, diarrhea, shortness of breath, cough Left knee pain is under control Vital Signs: Vital Signs Vital Signs Date Time Temp Pulse Resp B/P (MAP) Pulse Ox O2 Delivery O2 Flow Rate FiO2 08/24/21 14:42 97.9 91 19 117/53 (74) 96 Nasal Cannula 5.0 97.9 Physical Exam: PHYSICAL EXAM GENERAL: Alert, oriented x 3 female sitting upright in chair, talking on phone, in no acute distress. T-max 99.1. HEENT: Normocephalic, atraumatic. Anicteric. No thrush. Oral mucosa moist. NECK: Supple. LUNGS: Few rhonchi, otherwise clear. No accessory muscle use. CARDIOVASCULAR: S1, S2. No murmurs. ABDOMEN: Soft, obese. Bowel sounds present. EXTREMITIES: 2+ edema. MUSCULOSKELETAL: Left knee incision well healed, intact, well approximated. Sutures in place. No drainage. There is a superficial blister, dry. No purulence on the lateral aspect, nontender. DERMATOLOGIC: Warm, dry, no generalized rash. Medications: Inpatient Meds: Medications reviewed. Labs: Lab Laboratory Tests Test 08/24/21 06:00 08/24/21 13:27 Urine Collection Type Unknown Urine Color (Auto) Light yellow Urine Turbidity Clear Urine pH (Auto) 5.5 (<5.0-8.0) Urine Specific [place] 1.014 (1.000-1.030) Urine Protein (Auto) Negative mg/dL (Negative) Urine Glucose (Auto)(UA) Negative mg/dL (Negative) Urine Ketones (Auto) Negative mg/dL (Negative) Urine Blood (Auto) Negative (Negative) Urine Nitrite Negative (Negative) Urine Bilirubin (Auto) Negative (Negative) Urine Urobilinogen (Auto) Normal mg/dL (Normal) Urine Leukocyte Esterase (Auto) Small (Negative) Urine RBC 0 /HPF (0-2) Urine WBC 1-4 /HPF (0-4) Urine Squamous Epithelial Cells Mod /LPF Urine Bacteria Few /HPF (0-FEW) Sodium Level 136 mmol/L (136-145) Potassium Level 4.0 mmol/L (3.5-5.1) Chloride Level 99 mmol/L (98-107) Carbon Dioxide Level 27 mmol/L (21-32) Anion Gap 10 (6-14) Blood Urea Nitrogen 34 mg/dL (7-20) Creatinine 1.6 mg/dL (0.6-1.0) Estimated GFR (Cockcroft-Gault) 37.9 Glucose Level 149 mg/dL (70-99) Calcium Level 8.7 mg/dL (8.5-10.1) Magnesium Level 2.2 mg/dL (1.8-2.4) Objective: Assessment: 1. Low-grade febrile illness. Resolved. UA negative. 2. Acute hypoxic respiratory failure, likely from underlying congestive heart failure. 3. Congestive heart failure with cardiomyopathy. 4. Acute kidney injury with chronic kidney disease. 5. History of recent left total knee arthroplasty with superficial blister, dry. Does not appear infected at this time. 6. Low-grade fever, appears noninfectious. 7. Abnormal D-dimer, nonspecific Doppler ultrasound, limited, but negative for deep venous thrombosis. 8. Morbid obesity. Plan: Plan of Care 1. Continue observation. 2. UA is negative. PT and OT as tolerated. 3. Wound care as directed. LESTER ESTES MD August 24, 2021 15:25
[2021-08-24 19:00] VITALS: BP 116/60
[2021-08-24] MEDS: ATORVASTATIN CALCIUM 20 MG TABLET PO SCH (20:10)
[2021-08-24 23:00] VITALS: BP 101/51
[2021-08-25 03:00] VITALS: BP 85/44
[2021-08-25] MEDS: HEPARIN for SUB-Q USE 5,000 UNIT/ML VIAL. SQ SCH ×3 (05:52→20:03)
[2021-08-25] MEDS: LEVOTHYROXINE 175 MCG TABLET PO SCH (05:54)
[2021-08-25 07:00] VITALS: BP 125/59
[2021-08-25] MEDS: IPRATRPIUM/ALBUTEROL 0.5/2.5MG 3 ML NEBU. NEB SCH ×4 (07:10→20:24)
[2021-08-25] MEDS: HYDROXYCHLOROQUINE 200 MG TABLET PO SCH ×2 (08:24→20:02)
[2021-08-25] MEDS: MULTIVITAMIN with MINERAL TABLET. PO SCH (08:24)
[2021-08-25] MEDS: GABAPENTIN 300 MG CAPSULE. PO SCH ×3 (08:24→20:01)
[2021-08-25] MEDS: BISACODYL 5 MG TABLET.DR. PO SCH (08:24)
[2021-08-25] MEDS: FERROUS SULFATE 325 MG TABLET. PO SCH (08:24)
[2021-08-25] MEDS: CETIRIZINE HCL 10 MG TABLET. PO SCH (08:24)
[2021-08-25] MEDS: FUROSEMIDE 20 MG/2 ML VIAL. IVP SCH (08:25)
[2021-08-25] MEDS: CHOLECALCIFEROL (VITAMIN D3) 1,000 UNIT TABLET PO SCH (08:25)
[2021-08-25] MEDS: ASPIRIN CHEWABLE 81 MG TABLET. PO SCH (08:25)
[2021-08-25] MEDS: NEOMY/BACITR/POLYMYXIN OINT PACKET. TP SCH ×2 (08:25→20:01)
[2021-08-25] MEDS: MONTELUKAST SODIUM 10 MG TABLET. PO SCH (08:25)
--- NOTE | 2021-08-25 08:26 | PDOC ---
TOMASZ ROOT MATERIALS AND PROCESSES MANAGER 08/25/21 0826: CARDIO Progress Notes Date and Time Date of Service 08/25/21 Time of Evaluation 1120 Subjective Subjective: No Chest Pain, No shortness of breath, No Palpitations, No Dizziness Vitals Vitals Vital Signs Date Time Temp Pulse Resp B/P (MAP) Pulse Ox O2 Delivery O2 Flow Rate FiO2 08/25/21 03:00 98.8 94 19 85/44 (58) 95 Nasal Cannula 5.0 98.8 Weight Weight [ ] Input and Output Intake and Output Intake and Output 08/25/21 07:00 Intake Total 1160 ml Output Total 800 ml Balance 360 ml Intake Oral 1160 ml Output Urine Total 800 ml Laboratory Labs Laboratory Tests Test 08/24/21 13:27 Sodium Level 136 mmol/L (136-145) Potassium Level 4.0 mmol/L (3.5-5.1) Chloride Level 99 mmol/L (98-107) Carbon Dioxide Level 27 mmol/L (21-32) Anion Gap 10 (6-14) Blood Urea Nitrogen 34 mg/dL (7-20) Creatinine 1.6 mg/dL (0.6-1.0) Estimated GFR (Cockcroft-Gault) 37.9 Glucose Level 149 mg/dL (70-99) Calcium Level 8.7 mg/dL (8.5-10.1) Magnesium Level 2.2 mg/dL (1.8-2.4) Microbiology Micro Microbiology 08/24/21 Urine Culture - Final, Complete Pseudomonas Aeruginosa Physical Exam HEENT: Neck Supple W Full Motion Chest: Symmetric LUNGS: Other (diminished ) Heart: RRR Abdomen: Soft N/T Extremities: Other (1-2+ bilateral LE edema ) Neurology: alert, oriented, follow commands Assessment Assessment 1. NSTEMI; peak 191. most likely type II, demand ischemia 2. Acute on chronic systolic and diastolic heart failure; improved s/p IV diur esis 3. Cardiomyopathy; Echo 03/13 with LVEF 40-45% 4. HERMELINDA on CKD; Cr improved, stable 5. CAD s/p PCI/stent; clinically stable. MPI 08/10 with fixed defect. 6. Hypertension; controlled 7. Dyslipidemia; statin 8. Morbid obesity 9. Hypothyroidism; on replacement Recommendations Ongoing diuresis HF optimization Secondary prevention Outpatient ischemic evaluation Supportive care Follow up in our office with Dr. Mann has been arranged Plan for rehab upon discharge Justicifation of Admission Dx: Justifications for Admission: Justification of Admission Dx: Yes SHASHANK MANN MD 08/25/21 1632: CARDIO Progress Notes Assessment Assessment Patient seen and examined. Agree with ALCOHOL AND DRUG COUNSELOR's assessment and plan. Acute on chronic combined systolic and diastolic heart failure better compensated with diuresis. Non-STEMI most probably type II/demand ischemia. Continue current medical regimen Plan outpatient ischemic evaluation TOMASZ ROOT APRN August 25, 2021 08:26 SHASHANK MANN MD August 25, 2021 16:32
[2021-08-25] MEDS: NYSTATIN TOPICAL POWDER 15GM BOTTLE. TP SCH ×2 (08:32→20:04)
--- NOTE | 2021-08-25 09:35 | PDOC ---
DATE OF SERVICE DATE: 08/25/21 TIME: 09:35 SUBJECTIVE ROS Stable On o2 by NC 5 lts OBJECTIVE Vital Signs Vital Signs Date Time Temp Pulse Resp B/P (MAP) Pulse Ox O2 Delivery O2 Flow Rate FiO2 08/25/21 08:00 Nasal Cannula 5.0 08/25/21 07:00 97.8 82 18 125/59 (81) 96 97.8 I & 0 Intake and Output 08/25/21 07:00 Intake Total 1160 ml Output Total 800 ml Balance 360 ml Intake Oral 1160 ml Output Urine Total 800 ml PHYSICAL EXAM Physical Exam GENERAL: NAD, Morbidly obese HEENT: OM moist, On o2 by NC NECK: Supple. CV : S1, S2. No murmurs. LUNGS: CTA Bilat, Decreased at bases , Non labored ABDOMEN: Obese. NT : No [place]. EXTREMITIES: recent left knee replacement . trace -1 + LE edema NEUROLOGIC: Moving all extremities. No focal deficits noted. DIAGNOSIS/ASSESSMENT Assessment & Plan HERMELINDA - Cardiorenal , Creatinine back to her baseline . UA unremarkable.di uretics, Cardiology managing . Avoid nephrotoxins, Supportive care ,. daily standing weight , strict I/O(? accuracy) CKD -Baseline Creatinine 1.4-1.9 with intermittent HERMELINDA. Seen as OP in our office in May 2021 as Initial consult . Keep fu appt after dc Renal Cysts -US 05/2021 -multiple simple appearing right renal cysts, the largest of which measures 3.4 cm. Acute on chronic congestive heart failure getting IV Lasix . Card managing Morbid obesity. Recent left knee replacement. Hypertension- BP low currently , Monitor closely Anemia- Hgb normal Awaiting dc to Rehab COMMENT/RELEVANT DATA Meds Current Medications Medications (Trade) Dose Ordered Sig/Negro Start Time Stop Time Status Last Admin Dose Admin Acetaminophen (Tylenol) 650 mg PRN Q6HRS PRN 08/20/21 10:00 08/21/21 21:11 650 MG Acetaminophen/ Hydrocodone Bitart (Lortab 5/325) 1 tab PRN Q6HRS PRN 08/20/21 01:00 08/21/21 08:31 1 TAB Acetaminophen/ Hydrocodone Bitart (Lortab 7.5/325) 1 tab PRN Q6HRS PRN 08/20/21 10:00 08/23/21 20:53 1 TAB Albuterol/ Ipratropium (Duoneb) 3 ml RTQID 08/20/21 12:00 08/24/21 20:48 3 ML Aspirin (Aspirin Chewable) 81 mg DAILY 08/20/21 10:30 08/25/21 08:25 81 MG Atorvastatin Calcium (Lipitor) 20 mg HS 08/20/21 21:00 08/24/21 20:10 20 MG Bisacodyl (Dulcolax Tab) 10 mg DAILY 08/22/21 14:00 08/25/21 08:24 10 MG Budesonide (Pulmicort) 0.5 mg RTBID 08/20/21 20:00 08/24/21 20:48 0.5 MG Bupivacaine HCl (Sensorcaine-Mpf 0.25%) 10 ml 1X ONCE 08/22/21 13:15 08/22/21 13:26 DC 08/22/21 13:40 10 ML Cetirizine HCl (ZyrTEC) 10 mg DAILY 08/21/21 09:00 08/25/21 08:24 10 MG Diclofenac Sodium (Voltaren) 1 godwin PRN DAILY PRN 08/20/21 10:15 Docusate Sodium (Enemeez) 283 mg PRN DAILY PRN 08/22/21 14:00 Ferrous Sulfate (Feosol) 325 mg DAILY 08/21/21 09:00 08/25/21 08:24 325 MG Furosemide (Lasix) 40 mg 1X ONCE 08/20/21 10:00 08/20/21 10:16 DC 08/20/21 10:32 40 MG Gabapentin (Neurontin) 300 mg TID 08/20/21 14:00 08/25/21 08:24 300 MG Heparin Sodium (Porcine) (Heparin Sodium) 5,000 unit Q8HRS 08/20/21 10:00 08/24/21 21:39 5,000 UNIT Hydroxychloroquine Sulfate (Plaquenil) 200 mg BID 08/20/21 10:00 08/25/21 08:24 200 MG Levothyroxine Sodium (Synthroid) 175 mcg DAILY06 08/23/21 06:00 08/25/21 05:54 175 MCG Magnesium Hydroxide (Milk Of Magnesia) 2,400 mg PRN DAILY PRN 08/22/21 14:00 Montelukast Sodium (Singulair) 10 mg DAILY 08/20/21 10:30 08/25/21 08:25 10 MG Multivitamins (Thera M Plus) 1 tab DAILY 08/20/21 10:30 08/25/21 08:24 1 TAB Neomycin/ Polymyxin/ Bacitracin (Triple Antibiotic Ointment) 1 pkt BID 08/22/21 14:00 08/25/21 08:25 1 PKT Non-Formulary Medication (Budesonide/ Formoterol Fumarate (Symbicort 160-4.5 Mcg Inhaler)) 2 puff BID 08/20/21 21:00 08/20/21 10:16 DC Nystatin (Nystop) 1 godwin BID 08/20/21 13:00 08/25/21 08:32 1 GODWIN Senna/Docusate Sodium (Senna Plus) 2 tab PRN BID PRN 08/20/21 10:00 Triamcinolone Acetonide (Kenalog-40) 40 mg 1X ONCE 08/22/21 13:15 08/22/21 13:26 DC 08/22/21 13:40 40 MG Vitamin D (Vitamin D3) 2,000 unit DAILY 08/20/21 09:00 08/25/21 08:25 2,000 UNIT Lab Laboratory Tests Test 08/24/21 13:27 Sodium Level 136 mmol/L (136-145) Potassium Level 4.0 mmol/L (3.5-5.1) Chloride Level 99 mmol/L (98-107) Carbon Dioxide Level 27 mmol/L (21-32) Anion Gap 10 (6-14) Blood Urea Nitrogen 34 mg/dL (7-20) Creatinine 1.6 mg/dL (0.6-1.0) Estimated GFR (Cockcroft-Gault) 37.9 Glucose Level 149 mg/dL (70-99) Calcium Level 8.7 mg/dL (8.5-10.1) Magnesium Level 2.2 mg/dL (1.8-2.4) Results All relevant outside records, renal labs, imaging studies, telemetry/EKG's were reviewed. Justicifation of Admission Dx: Justifications for Admission: Justification of Admission Dx: Yes ELIDA DELCID MD August 25, 2021 09:35
[2021-08-25] MEDS ORDERED: CALCIUM CARBONATE 500 MG TAB.CHEW PO PRN ×2 (09:45→10:00)
--- NOTE | 2021-08-25 09:53 | PDOC ---
IM PROGRESS NOTES- Subjective Subjective Dyspnea,pain are improving. wants Tums. Objective Vitals/I&O Vital Signs Date Time Temp Pulse Resp B/P (MAP) Pulse Ox O2 Delivery O2 Flow Rate FiO2 08/25/21 08:00 Nasal Cannula 5.0 08/25/21 07:00 97.8 82 18 125/59 (81) 96 97.8 I & O 08/24/21 08/24/21 08/25/21 15:00 23:00 07:00 Intake Total 880 ml 280 ml 0 ml Output Total 800 ml Balance 880 ml 280 ml -800 ml Physical Exam Physical Exam General Appearance - alert and in no distress Chest - decreased breath sounds at bases Heart - S1 and S2 normal Abdomen - soft, non tender Neurological - alert and oriented Musculoskeletal - generalized weakness Extremities - no edema Labs Laboratory Tests Test 08/24/21 13:27 Sodium Level 136 mmol/L (136-145) Potassium Level 4.0 mmol/L (3.5-5.1) Chloride Level 99 mmol/L (98-107) Carbon Dioxide Level 27 mmol/L (21-32) Anion Gap 10 (6-14) Blood Urea Nitrogen 34 mg/dL (7-20) H Creatinine 1.6 mg/dL (0.6-1.0) H Estimated GFR (Cockcroft-Gault) 37.9 Glucose Level 149 mg/dL (70-99) H Calcium Level 8.7 mg/dL (8.5-10.1) Magnesium Level 2.2 mg/dL (1.8-2.4) Laboratory Tests 08/24/21 13:27 Assessment Assessment 1. Acute on chronic congestive heart failure. 2. Elevated troponin, rule out silent myocardial infarction. 3. Kidney disease, creatinine 2.3. 4. Morbid obesity. 5. Recent left knee replacement. 6. Hypertension. 7. Hyperlipidemia. 8. Hypothyroidism. 9. Acute hypoxic respiratory failure. PLAN: At this time, admit to hospital, was given IV Lasix, subcutaneous heparin 3 times daily for DVT prophylaxis. Cardiology consultation, serial cardiac enzymes and see how the patient's improves in the next 24-48 hours. Acute hypoxic respiratory failure. Likely due to CHF. O2 by n/c. Low grade fever- monitor. CT chest report pending. Consult . Acute on chronic congestive heart failure.Diuretics. Cardiology consult appreciated. CKD- Creat decreased from 2.3 to 1.9. Renal consult. Fever- Labs,consult ID.Etiology not clear. D Dimer 10- Venous doppler lower extremity- no DVT on limited evaluation. Rt knee pain is improving. She had a steroid injection . Awaiting placement. Clinically improving. Discharge management 35 minutes. Plan Plan For more details regarding further plans, please refer to the orders. Justifications for Admission Other Justification ALCIDES SWANSON MD August 25, 2021 09:53
--- NOTE | 2021-08-25 10:44 | PDOC ---
PULMONARY PROGRESS NOTES DATE: 08/25/21 TIME: 10:41 Subjective Patient continues to be short of breath at times Remains on 5 L. Vitals Vital Signs Date Time Temp Pulse Resp B/P (MAP) Pulse Ox O2 Delivery O2 Flow Rate FiO2 08/25/21 08:00 Nasal Cannula 5.0 08/25/21 07:00 97.8 82 18 125/59 (81) 96 97.8 ROS: No Nausea, No Chest Pain, No Abdominal Pain, No Increase Cough General: Alert HEENT: Other Lungs: Clear Cardiovascular: S1, S2 Abdomen: Soft, Other Neuro Exam: Alert Extremities: Other Skin: Warm (Edema) Labs Laboratory Tests Test 08/24/21 06:00 08/24/21 13:27 Urine Collection Type Unknown Urine Color (Auto) Light yellow Urine Turbidity Clear Urine pH (Auto) 5.5 (<5.0-8.0) Urine Specific [place] 1.014 (1.000-1.030) Urine Protein (Auto) Negative mg/dL (Negative) Urine Glucose (Auto)(UA) Negative mg/dL (Negative) Urine Ketones (Auto) Negative mg/dL (Negative) Urine Blood (Auto) Negative (Negative) Urine Nitrite Negative (Negative) Urine Bilirubin (Auto) Negative (Negative) Urine Urobilinogen (Auto) Normal mg/dL (Normal) Urine Leukocyte Esterase (Auto) Small (Negative) Urine RBC 0 /HPF (0-2) Urine WBC 1-4 /HPF (0-4) Urine Squamous Epithelial Cells Mod /LPF Urine Bacteria Few /HPF (0-FEW) Sodium Level 136 mmol/L (136-145) Potassium Level 4.0 mmol/L (3.5-5.1) Chloride Level 99 mmol/L (98-107) Carbon Dioxide Level 27 mmol/L (21-32) Anion Gap 10 (6-14) Blood Urea Nitrogen 34 mg/dL (7-20) Creatinine 1.6 mg/dL (0.6-1.0) Estimated GFR (Cockcroft-Gault) 37.9 Glucose Level 149 mg/dL (70-99) Calcium Level 8.7 mg/dL (8.5-10.1) Magnesium Level 2.2 mg/dL (1.8-2.4) Laboratory Tests Test 08/24/21 13:27 Sodium Level 136 mmol/L (136-145) Potassium Level 4.0 mmol/L (3.5-5.1) Chloride Level 99 mmol/L (98-107) Carbon Dioxide Level 27 mmol/L (21-32) Anion Gap 10 (6-14) Blood Urea Nitrogen 34 mg/dL (7-20) Creatinine 1.6 mg/dL (0.6-1.0) Estimated GFR (Cockcroft-Gault) 37.9 Glucose Level 149 mg/dL (70-99) Calcium Level 8.7 mg/dL (8.5-10.1) Magnesium Level 2.2 mg/dL (1.8-2.4) Medications Active Scripts Medications Dose Route/Sig Max Daily Dose Days Date Category Furosemide 40 Mg Tablet 40 Mg PO BID 30 08/22/21 Rx Nyamyc (Nystatin) 15 Gm Powder 1 Shaka TP BID 14 08/22/21 Rx Heparin Sodium (Heparin Sodium,Porcine) 5,000 Unit/1 Ml Vial 5,000 Unit SQ Q8HRS 14 08/22/21 Rx Duoneb 0.5-3(2.5) Mg/3 Ml (Albuterol/Ipratropium) 3 Ml Ampul.neb 3 Ml NEB RTQID 30 08/22/21 Rx Potassium Chloride (Potassium Chloride) 20 Meq Tablet.er 20 Meq PO DAILY 08/20/21 Reported Losartan Potassium 50 Mg Tablet 25 Mg PO DAILY 08/20/21 Reported Colcrys (Colchicine) 0.6 Mg Tablet 1 Tab PO DAILY 30 08/20/21 Reported Clopidogrel (Clopidogrel Bisulfate) 75 Mg Tablet 1 Tab PO DAILY 08/20/21 Reported Atenolol 25 Mg Tablet 1 Tab PO DAILY 08/20/21 Reported Thera-M Tablet (Multivits,Ca,Minerals/Iron/Fa) 1 Each Tablet 1 Tab PO DAILY 30 07/29/21 Rx Levothyroxine Sodium 175 Mcg Tablet 1 Tab PO DAILY 07/27/21 Reported Stool Soft-Stimulant Lax Tab (Sennosides/Docusate Sodium) 1 Each Tablet 2 Tab PO PRN BID PRN 30 12/03/20 Rx Acetaminophen 325 Mg Tablet 650 Mg PO PRN Q6HRS PRN 7 12/03/20 Rx Aspirin 81 Mg Tab.chew 81 Mg PO DAILY 11/30/20 Reported Diclofenac Sodium 100 Gm Gel..gram. 100 Gm TP PRN PRN 07/09/20 Reported Hydroxychloroquine Sulfate 200 Mg Tablet 1 Tab PO BID 07/09/20 Reported Vitamin D3 (Cholecalciferol (Vitamin D3)) 1,000 Unit Tablet 2,000 Unit PO DAILY 01/24/18 Reported Atorvastatin Calcium 20 Mg Tablet 20 Mg PO HS 01/24/18 Reported Ferrous Sulfate 325 Mg Tablet 325 Mg PO DAILY 02/09/17 Reported Hydrocodone-Apap 7.5-325 (Hydrocodone Bit/Acetaminophen) 1 Each Tablet 1 Tab PO PRN Q6HRS PRN 02/09/17 Reported Symbicort 160-4.5 Mcg Inhaler (Budesonide/Formoterol Fumarate) 10.2 Gm Hfa.aer.ad 2 Puff IH BID 02/09/17 Reported Singulair Tablet (Montelukast Sodium) 10 Mg Tablet 1 Tab PO DAILY 04/27/14 Reported Cetirizine Hcl 10 Mg Tablet 1 Tab PO DAILY 04/27/14 Reported Gabapentin (Gabapentin) 300 Mg Capsule 1 Cap PO TID 04/27/14 Reported Impression . IMPRESSION: 1. Acute hypoxic respiratory failure secondary to [id number] systolic congestive heart failure. 2. The patient with known cardiomyopathy with an ejection fraction of 40% based on echo from 02/2021. No significant valvular heart disease. Would recommend repeating an echo. 3. Acute kidney injury. 4. Abnormal D-dimer, which is nonspecific and could be related to congestive heart failure;venous Dopplers of lower extremities to deep venous thrombosis negative for DVT. 5. 50 years of tobaccoism. Suspect underlying chronic obstructive pulmonary disease. Plan . Remains on 5 L. Will repeat chest x-ray today. Social service working on placement Continue current oxygen supplementation Continue optimizing treatment for heart failure Venous Dopplers negative, limited study, negative for DVT. PFT as an outpatient RADHIKA MARTINEZ MD August 25, 2021 10:44
--- NOTE | 2021-08-25 11:28 | PDOC ---
PROGRESS NOTES Date of Service DATE: 08/25/21 TIME: 11:26 Subjective Subjective No new complaints. Objective Objective Vital Signs Date Time Temp Pulse Resp B/P (MAP) Pulse Ox O2 Delivery O2 Flow Rate FiO2 08/25/21 08:00 Nasal Cannula 5.0 08/25/21 07:00 97.8 82 18 125/59 (81) 96 97.8 Intake and Output 08/25/21 06:59 Intake Total 1160 ml Output Total 800 ml Balance 360 ml Intake Oral 1160 ml Output Urine Total 800 ml Physical Exam Physical Exam She is alert,sitting up in bedside chair and seems to be comfortable and she got up this AM with minimal assistance for transfers and made 10 steps with roller walker with bent forward posture. She requires significant assistance for bed mobility. Assessment Assessment Problems Medical Problems: (1) CHF exacerbation Status: Acute Plan Plan of Care Waiting for half-way care or rehab unit for continued care when medically stable. Comment Review of Relevant I have reviewed the following items swathi (where applicable) has been applied. Labs Laboratory Tests Test 08/24/21 06:00 08/24/21 13:27 Urine Collection Type Unknown Urine Color (Auto) Light yellow Urine Turbidity Clear Urine pH (Auto) 5.5 (<5.0-8.0) Urine Specific [place] 1.014 (1.000-1.030) Urine Protein (Auto) Negative mg/dL (Negative) Urine Glucose (Auto)(UA) Negative mg/dL (Negative) Urine Ketones (Auto) Negative mg/dL (Negative) Urine Blood (Auto) Negative (Negative) Urine Nitrite Negative (Negative) Urine Bilirubin (Auto) Negative (Negative) Urine Urobilinogen (Auto) Normal mg/dL (Normal) Urine Leukocyte Esterase (Auto) Small (Negative) Urine RBC 0 /HPF (0-2) Urine WBC 1-4 /HPF (0-4) Urine Squamous Epithelial Cells Mod /LPF Urine Bacteria Few /HPF (0-FEW) Sodium Level 136 mmol/L (136-145) Potassium Level 4.0 mmol/L (3.5-5.1) Chloride Level 99 mmol/L (98-107) Carbon Dioxide Level 27 mmol/L (21-32) Anion Gap 10 (6-14) Blood Urea Nitrogen 34 mg/dL (7-20) Creatinine 1.6 mg/dL (0.6-1.0) Estimated GFR (Cockcroft-Gault) 37.9 Glucose Level 149 mg/dL (70-99) Calcium Level 8.7 mg/dL (8.5-10.1) Magnesium Level 2.2 mg/dL (1.8-2.4) Laboratory Tests Test 08/24/21 13:27 Sodium Level 136 mmol/L (136-145) Potassium Level 4.0 mmol/L (3.5-5.1) Chloride Level 99 mmol/L (98-107) Carbon Dioxide Level 27 mmol/L (21-32) Anion Gap 10 (6-14) Blood Urea Nitrogen 34 mg/dL (7-20) Creatinine 1.6 mg/dL (0.6-1.0) Estimated GFR (Cockcroft-Gault) 37.9 Glucose Level 149 mg/dL (70-99) Calcium Level 8.7 mg/dL (8.5-10.1) Magnesium Level 2.2 mg/dL (1.8-2.4) Microbiology 08/24/21 Urine Culture - Final, Complete Pseudomonas Aeruginosa Medications Current Medications Acetaminophen/ Hydrocodone Bitart (Lortab 5/325) 1 tab PRN Q6HRS PRN PO MODERATE PAIN Last administered on 08/21/21at 08:31; Start 08/20/21 at 01:00 Acetaminophen (Tylenol) 650 mg PRN Q6HRS PRN PO MILD PAIN / TEMP > 100.3'F Last administered on 08/21/21at 21:11; Start 08/20/21 at 10:00 Aspirin (Aspirin Chewable) 81 mg DAILY PO Last administered on 08/25/21 08:25; Start 08/20/21 at 10:30 Atorvastatin Calcium (Lipitor) 20 mg HS PO Last administered on 08/24/21at 20:10; Start 08/20/21 at 21:00 Cetirizine HCl (ZyrTEC) 10 mg DAILY PO Last administered on 08/25/21 08:24; Start 08/21/21 at 09:00 Vitamin D (Vitamin D3) 2,000 unit DAILY PO Last administered on 08/25/21 08:25; Start 08/20/21 at 09:00 Ferrous Sulfate (Feosol) 325 mg DAILY PO Last administered on 08/25/21 08:24; Start 08/21/21 at 09:00 Gabapentin (Neurontin) 300 mg TID PO Last administered on 08/25/21 08:24; Start 08/20/21 at 14:00 Acetaminophen/ Hydrocodone Bitart (Lortab 7.5/325) 1 tab PRN Q6HRS PRN PO SEVERE PAIN Last administered on 08/23/21 20:53; Start 08/20/21 at 10:00 Hydroxychloroquine Sulfate (Plaquenil) 200 mg BID PO Last administered on 08/25/21 08:24; Start 08/20/21 at 10:00 Levothyroxine Sodium (Synthroid) 175 mcg DAILY PO Last administered on 08/22/21 08:02; Start 08/21/21 at 09:00; Stop 08/22/21 at 16:22; Status DC Montelukast Sodium (Singulair) 10 mg DAILY PO Last administered on 08/25/21 08:25; Start 08/20/21 at 10:30 Multivitamins (Thera M Plus) 1 tab DAILY PO Last administered on 08/25/21 08:24; Start 08/20/21 at 10:30 Senna/Docusate Sodium (Senna Plus) 2 tab PRN BID PRN PO CONSTIPATION-1st option; Start 08/20/21 at 10:00 Non-Formulary Medication (Budesonide/ Formoterol Fumarate (Symbicort 160-4.5 Mcg Inhaler)) 2 puff BID IH ; Start 08/20/21 at 21:00; Stop 08/20/21 at 10:16; Status DC Diclofenac Sodium (Voltaren) 1 shaka PRN DAILY PRN TP PAIN; Start 08/20/21 at 10:15 Heparin Sodium (Porcine) (Heparin Sodium) 5,000 unit Q8HRS SQ Last administered on 08/24/21 21:39; Start 08/20/21 at 10:00 Furosemide (Lasix) 20 mg BID92 IVP Last administered on 08/25/21 08:25; Start 08/20/21 at 14:00 Furosemide (Lasix) 40 mg 1X ONCE IVP Last administered on 08/20/21at 10:32; Start 08/20/21 at 10:00; Stop 08/20/21 at 10:16; Status DC Albuterol/ Ipratropium (Duoneb) 3 ml 1X ONCE NEB Last administered on 08/20/21at 11:55; Start 08/20/21 at 10:00; Stop 08/20/21 at 10:16; Status DC Albuterol/ Ipratropium (Duoneb) 3 ml RTQID NEB Last administered on 08/24/21at 20:48; Start 08/20/21 at 12:00 Budesonide (Pulmicort) 0.5 mg RTBID NEB Last administered on 08/24/21 20:48; Start 08/20/21 at 20:00 Nystatin (Nystop) 1 shaka BID TP Last administered on 08/25/21 08:32; Start at 13:00 Triamcinolone Acetonide (Kenalog-40) 40 mg 1X ONCE INT ART Last administered on 08/22/21 13:40; Start 08/22/21 at 13:15; Stop 08/22/21 at 13:26; Status DC Bupivacaine HCl (Sensorcaine-Mpf 0.25%) 10 ml 1X ONCE IJ Last administered on 08/22/21at 13:40; Start 08/22/21 at 13:15; Stop 08/22/21 at 13:26; Status DC Neomycin/ Polymyxin/ Bacitracin (Triple Antibiotic Ointment) 1 pkt BID TP Last administered on 08/25/21at 08:25; Start 08/22/21 at 14:00 Magnesium Hydroxide (Milk Of Magnesia) 2,400 mg PRN DAILY PRN PO CONSTIPATION- 2nd option; Start 08/22/21 at 14:00 Bisacodyl (Dulcolax Tab) 10 mg DAILY PO Last administered on 08/25/21at 08:24; Start 08/22/21 at 14:00 Docusate Sodium (Enemeez) 283 mg PRN DAILY PRN [place] CONSTIPATION; Start 08/22/21 at 14:00 Levothyroxine Sodium (Synthroid) 175 mcg DAILY06 PO Last administered on 08/25/21at 05:54; Start 08/23/21 at 06:00 Calcium Carbonate/ Glycine (Tums) 500 mg PRN QID PRN PO INDIGESTION Last administered on 08/25/21 09:52; Start 08/25/21 at 09:45; Stop 08/25/21 at 09:53; Status DC Calcium Carbonate/ Glycine (Tums) 500 mg PRN AFTMEALHC PRN PO INDIGESTION; Start 08/25/21 at 10:00 Active Scripts Active Furosemide 40 Mg Tablet 40 Mg PO BID 30 Days Nyamyc (Nystatin) 15 Gm Powder 1 Shaka TP BID 14 Days Heparin Sodium (Heparin Sodium,Porcine) 5,000 Unit/1 Ml Vial 5,000 Unit SQ Q8HRS 14 Days Duoneb 0.5-3(2.5) Mg/3 Ml (Albuterol/Ipratropium) 3 Ml Ampul.neb 3 Ml NEB RTQID 30 Days Thera-M Tablet (Multivits,Ca,Minerals/Iron/Fa) 1 Each Tablet 1 Tab PO DAILY 30 Days Stool Soft-Stimulant Lax Tab (Sennosides/Docusate Sodium) 1 Each Tablet 2 Tab PO PRN BID PRN 30 Days Acetaminophen 325 Mg Tablet 650 Mg PO PRN Q6HRS PRN 7 Days Reported Potassium Chloride (Potassium Chloride) 20 Meq Tablet.er 20 Meq PO DAILY Losartan Potassium 50 Mg Tablet 25 Mg PO DAILY Colcrys (Colchicine) 0.6 Mg Tablet 1 Tab PO DAILY 30 Days Clopidogrel (Clopidogrel Bisulfate) 75 Mg Tablet 1 Tab PO DAILY Atenolol 25 Mg Tablet 1 Tab PO DAILY Levothyroxine Sodium 175 Mcg Tablet 1 Tab PO DAILY Aspirin 81 Mg Tab.chew 81 Mg PO DAILY Diclofenac Sodium 100 Gm Gel..gram. 100 Gm TP PRN PRN Hydroxychloroquine Sulfate 200 Mg Tablet 1 Tab PO BID Vitamin D3 (Cholecalciferol (Vitamin D3)) 1,000 Unit Tablet 2,000 Unit PO DAILY Atorvastatin Calcium 20 Mg Tablet 20 Mg PO HS Ferrous Sulfate 325 Mg Tablet 325 Mg PO DAILY Hydrocodone-Apap 7.5-325 (Hydrocodone Bit/Acetaminophen) 1 Each Tablet 1 Tab PO PRN Q6HRS PRN Symbicort 160-4.5 Mcg Inhaler (Budesonide/Formoterol Fumarate) 10.2 Gm Hfa.aer.ad 2 Puff IH BID Singulair Tablet (Montelukast Sodium) 10 Mg Tablet 1 Tab PO DAILY Cetirizine Hcl 10 Mg Tablet 1 Tab PO DAILY Gabapentin (Gabapentin) 300 Mg Capsule 1 Cap PO TID Vitals/I & O Vital Sign - Last 24 Hours 08/24/21 08/24/21 08/24/21 08/24/21 14:42 15:27 19:00 20:00 Temp 97.9 97.8 97.9 97.8 Pulse 91 90 Resp 19 17 B/P (MAP) 117/53 (74) 116/60 (78) Pulse Ox 96 96 98 O2 Delivery Nasal Cannula Nasal Cannula Nasal Cannula Nasal Cannula O2 Flow Rate 5.0 5.0 5.0 5.0 08/24/21 08/24/21 08/25/21 08/25/21 20:49 23:00 03:00 07:00 Temp 97.7 98.8 97.8 97.7 98.8 97.8 Pulse 66 94 82 Resp 16 19 18 B/P (MAP) 101/51 (68) 85/44 (58) 125/59 (81) Pulse Ox 96 94 95 96 O2 Delivery Nasal Cannula Nasal Cannula Nasal Cannula Nasal Cannula O2 Flow Rate 5.0 5.0 5.0 5.0 08/25/21 08:00 O2 Delivery Nasal Cannula O2 Flow Rate 5.0 Intake and Output 08/24/21 08/24/21 08/25/21 14:59 22:59 06:59 Intake Total 880 ml 280 ml 0 ml Output Total 800 ml Balance 880 ml 280 ml -800 ml Justifications for Admission Other Justification BRIDGET CRANDALL MD August 25, 2021 11:28
[2021-08-25] MEDS: BUDESONIDE 0.5 MG/2 ML NEBU. NEB SCH ×2 (11:34→20:24)
[2021-08-25 12:30] VITALS: BP 125/57
--- NOTE | 2021-08-25 13:01 | PDOC ---
Infectious Disease Note Subjective: Subjective Patient without complaints Denies any fever, chills, nausea, vomiting, diarrhea, shortness of breath, cough Left knee pain is under control Vital Signs: Vital Signs Vital Signs Date Time Temp Pulse Resp B/P (MAP) Pulse Ox O2 Delivery O2 Flow Rate FiO2 08/25/21 12:30 98.3 16 125/57 (79) 99 Nasal Cannula 5.0 98.3 08/25/21 07:00 82 Physical Exam: PHYSICAL EXAM GENERAL: Alert, oriented x 3 female sitting upright in chair, talking on phone, in no acute distress. T-max 99.1. HEENT: Normocephalic, atraumatic. Anicteric. No thrush. Oral mucosa moist. NECK: Supple. LUNGS: Few rhonchi, otherwise clear. No accessory muscle use. CARDIOVASCULAR: S1, S2. No murmurs. ABDOMEN: Soft, obese. Bowel sounds present. EXTREMITIES: 2+ edema. MUSCULOSKELETAL: Left knee incision well healed, intact, well approximated. Sutures in place. No drainage. There is a superficial blister, dry. No purulence on the lateral aspect OR any drainage noted,, nontender. DERMATOLOGIC: Warm, dry, no generalized rash. Medications: Inpatient Meds: Medications reviewed. Labs: Lab Laboratory Tests Test 08/24/21 13:27 Sodium Level 136 mmol/L (136-145) Potassium Level 4.0 mmol/L (3.5-5.1) Chloride Level 99 mmol/L (98-107) Carbon Dioxide Level 27 mmol/L (21-32) Anion Gap 10 (6-14) Blood Urea Nitrogen 34 mg/dL (7-20) Creatinine 1.6 mg/dL (0.6-1.0) Estimated GFR (Cockcroft-Gault) 37.9 Glucose Level 149 mg/dL (70-99) Calcium Level 8.7 mg/dL (8.5-10.1) Magnesium Level 2.2 mg/dL (1.8-2.4) Micro RUN DATE: 08/25/21 [facility] LAB *LIVE* PAGE 1 RUN TIME: 737 Specimen Inquiry PATIENT: JON HERRERA ACCT: [id number] LOC: [address] [place] [address] U: [id number] AGE/SX: 76/F ROOM: [facility] RE08/19/[address]: ALCIDES SWANSON MD : 1945 BED: 1 DIS: STATUS: ADM IN TLOC: SPEC #: [id number] ANDI: 08/24/21 STATUS: COMP REQ #: [id number] RECD: 08/24/[address]: ALCIDES SWANSON MD SOURCE: VOID ENTR: 08/24/21 [facility] DR: LESTER ESTES MD SPDESC: ELIDA DELCID MD,BRIDGET DAMON MD, MD, AMAN U MD PASNOORI, VENKAT R MD ORDERED: CULTURE URINE* Procedure Result CULTURE URINE Final LESS THAN 10,000 CFU/ML PSEUDOMONAS AERUGINOSA on 08/25/21 at 0735. GROWTH NOT INDICATIVE OF INFECTION NO FURTHER WORKUP Testing performed by [address] [address] news library director: Hazel Metzger MD Objective: Assessment: 1. Low-grade febrile illness. Resolved. UA negative. uc 10k PSAE, likely contaminant 2. Acute hypoxic respiratory failure, likely from underlying congestive heart failure. 3. Congestive heart failure with cardiomyopathy. 4. Acute kidney injury with chronic kidney disease. 5. History of recent left total knee arthroplasty with superficial blister, dry. Does not appear infected at this time. 6. Low-grade fever, appears noninfectious. 7. Abnormal D-dimer, nonspecific Doppler ultrasound, limited, but negative for deep venous thrombosis. 8. Morbid obesity. Plan: Plan of Care 1. Continue observation. 2. PT and OT as tolerated. 3. Wound care as directed. LESTER ESTES MD August 25, 2021 13:01
--- NOTE | 2021-08-25 13:19 | NUR ---
SS following up with discharge planning. SS reviewed pt chart and discussed with pt RN. Pt is currently requiring oxygen at five liters nasal canula. COVID19 negative. PT/OT recommended fpc unit. Pt accepted at [facility], ; fax [phone], and [facility], ; fax [phone], pending insurance approval. Clinical updates sent to [facility] as requested. SS will continue to follow for discharge planning.
--- NOTE | 2021-08-25 13:20 | RAD ---
EXAM: XR CHEST 1V 08/25/2021 10:46 AM CLINICAL INDICATION: CHF COMPARISON: Chest radiograph 08/19/2021 TECHNIQUE: AP upright view of the chest FINDINGS: The heart is enlarged. Lungs are adequately expanded. There is mild interstitial prominenc e. No consolidation, pleural effusion, or pneumothorax. IMPRESSION: Unchanged cardiomegaly. Possible mild pulmonary vascular congestion. Electronically signed by: Maria De Jesus Ramirez MD (08/25/2021 1:18 PM) [id number]
[2021-08-25] MEDS: FUROSEMIDE 40 MG/4 ML VIAL. IVP SCH (14:14)
[2021-08-25 15:00] VITALS: BP 124/61
[2021-08-25] MEDS: HYDROcodone/APAP 7.5/325MG 1 TAB TABLET PO PRN (16:24)
[2021-08-25 19:36] VITALS: BP 107/56
[2021-08-25] MEDS: ATORVASTATIN CALCIUM 20 MG TABLET PO SCH (20:01)
[2021-08-25 22:41] VITALS: BP 111/58
[2021-08-26 02:52] VITALS: BP_SYST 118; BP_SYST 126; BP_DIAS 61; BP_DIAS 63
[2021-08-26] MEDS: LEVOTHYROXINE 175 MCG TABLET PO SCH (06:17)
[2021-08-26] MEDS: HEPARIN for SUB-Q USE 5,000 UNIT/ML VIAL. SQ SCH ×2 (06:18→14:00)
[2021-08-26 07:00] VITALS: BP 135/60
[2021-08-26] MEDS: IPRATRPIUM/ALBUTEROL 0.5/2.5MG 3 ML NEBU. NEB SCH ×3 (07:40→15:39)
[2021-08-26] MEDS: BUDESONIDE 0.5 MG/2 ML NEBU. NEB SCH (07:40)
[2021-08-26] MEDS: CHOLECALCIFEROL (VITAMIN D3) 1,000 UNIT TABLET PO SCH (08:32)
[2021-08-26] MEDS: MULTIVITAMIN with MINERAL TABLET. PO SCH (08:32)
[2021-08-26] MEDS: FUROSEMIDE 40 MG/4 ML VIAL. IVP SCH ×2 (08:32→14:00)
[2021-08-26] MEDS: FERROUS SULFATE 325 MG TABLET. PO SCH (08:32)
[2021-08-26] MEDS: BISACODYL 5 MG TABLET.DR. PO SCH (08:32)
[2021-08-26] MEDS: NEOMY/BACITR/POLYMYXIN OINT PACKET. TP SCH (08:32)
[2021-08-26] MEDS: ASPIRIN CHEWABLE 81 MG TABLET. PO SCH (08:32)
[2021-08-26] MEDS: HYDROXYCHLOROQUINE 200 MG TABLET PO SCH (08:32)
[2021-08-26] MEDS: MONTELUKAST SODIUM 10 MG TABLET. PO SCH (08:32)
[2021-08-26] MEDS: CETIRIZINE HCL 10 MG TABLET. PO SCH (08:32)
[2021-08-26] MEDS: GABAPENTIN 300 MG CAPSULE. PO SCH ×2 (08:32→15:11)
[2021-08-26] MEDS: NYSTATIN TOPICAL POWDER 15GM BOTTLE. TP SCH (09:00)
--- NOTE | 2021-08-26 09:13 | PDOC ---
DATE OF SERVICE DATE: 08/26/21 TIME: 09:13 SUBJECTIVE ROS Stable On o2 by ARIANA 5 lts OBJECTIVE Vital Signs Vital Signs Date Time Temp Pulse Resp B/P (MAP) Pulse Ox O2 Delivery O2 Flow Rate FiO2 08/26/21 07:41 94 Nasal Cannula 5.0 08/26/21 07:00 97.4 87 22 135/60 (85) 97.4 I & 0 Intake and Output 08/26/21 07:00 Intake Total 800 ml Output Total 300 ml Balance 500 ml Intake Oral 800 ml Output Urine Total 300 ml # Voids 1 PHYSICAL EXAM Physical Exam GENERAL: NAD, Morbidly obese HEENT: OM moist, On o2 by NC NECK: Supple. CV : S1, S2. No murmurs. LUNGS: CTA Bilat, Decreased at bases , Non labored ABDOMEN: Obese. NT : No Borden. EXTREMITIES: recent left knee replacement . trace -1 + LE edema NEUROLOGIC: Moving all extremities. No focal deficits noted. DIAGNOSIS/ASSESSMENT Assessment & Plan HERMELINDA - Cardiorenal , Creatinine back to her baseline . UA unrem arkable.diuretics, Cardiology managing . Avoid nephrotoxins, Supportive care ,. daily standing weight , strict I/O(? accuracy) DIAGNOSIS/ASSESSMENT Assessment & Plan CKD -Baseline Creatinine 1.4-1.9 with intermittent HERMELINDA. Seen as OP in our office in May 2021 as Initial consult . IV Lasix dose increased to 40 BID- avoid Overdiuresis, Card managing Keep fu appt after dc Renal Cysts -US 05/2021 -multiple simple appearing right renal cysts, the largest of which measures 3.4 cm. Acute on chronic congestive heart failure getting IV Lasix .Dose increased- Card managing . CxR 08/25- Unchanged cardiomegaly. Possible mild pulmonary vascular congestion. Morbid obesity. Recent left knee replacement. Hypertension- BP low currently , Monitor closely Anemia- Hgb normal Awaiting dc to Rehab COMMENT/RELEVANT DATA Meds Current Medications Medications (Trade) Dose Ordered Sig/Negro Start Time Stop Time Status Last Admin Dose Admin Acetaminophen (Tylenol) 650 mg PRN Q6HRS PRN 08/20/21 10:00 08/21/21 21:11 650 MG Acetaminophen/ Hydrocodone Bitart (Lortab 5/325) 1 tab PRN Q6HRS PRN 08/20/21 01:00 08/21/21 08:31 1 TAB Acetaminophen/ Hydrocodone Bitart (Lortab 7.5/325) 1 tab PRN Q6HRS PRN 08/20/21 10:00 08/25/21 16:24 1 TAB Albuterol/ Ipratropium (Duoneb) 3 ml RTQID 08/20/21 12:00 08/26/21 07:40 3 ML Aspirin (Aspirin Chewable) 81 mg DAILY 08/20/21 10:30 08/26/21 08:32 81 MG Atorvastatin Calcium (Lipitor) 20 mg HS 08/20/21 21:00 08/25/21 20:01 20 MG Bisacodyl (Dulcolax Tab) 10 mg DAILY 08/22/21 14:00 08/26/21 08:32 10 MG Budesonide (Pulmicort) 0.5 mg RTBID 08/20/21 20:00 08/26/21 07:40 0.5 MG Bupivacaine HCl (Sensorcaine-Mpf 0.25%) 10 ml 1X ONCE 08/22/21 13:15 08/22/21 13:26 DC 08/22/21 13:40 10 ML Calcium Carbonate/ Glycine (Tums) 500 mg PRN AFTMEALHC PRN 08/25/21 10:00 Cetirizine HCl (ZyrTEC) 10 mg DAILY 08/21/21 09:00 08/26/21 08:32 10 MG Diclofenac Sodium (Voltaren) 1 godwin PRN DAILY PRN 08/20/21 10:15 Docusate Sodium (Enemeez) 283 mg PRN DAILY PRN 08/22/21 14:00 Ferrous Sulfate (Feosol) 325 mg DAILY 08/21/21 09:00 08/26/21 08:32 325 MG Furosemide (Lasix) 40 mg BID92 08/25/21 14:00 08/26/21 08:32 40 MG Gabapentin (Neurontin) 300 mg TID 08/20/21 14:00 08/26/21 08:32 300 MG Heparin Sodium (Porcine) (Heparin Sodium) 5,000 unit Q8HRS 08/20/21 10:00 08/26/21 06:18 5,000 UNIT Hydroxychloroquine Sulfate (Plaquenil) 200 mg BID 08/20/21 10:00 08/26/21 08:32 200 MG Levothyroxine Sodium (Synthroid) 175 mcg DAILY06 08/23/21 06:00 08/26/21 06:17 175 MCG Magnesium Hydroxide (Milk Of Magnesia) 2,400 mg PRN DAILY PRN 08/22/21 14:00 Montelukast Sodium (Singulair) 10 mg DAILY 08/20/21 10:30 08/26/21 08:32 10 MG Multivitamins (Thera M Plus) 1 tab DAILY 08/20/21 10:30 08/26/21 08:32 1 TAB Neomycin/ Polymyxin/ Bacitracin (Triple Antibiotic Ointment) 1 pkt BID 08/22/21 14:00 08/26/21 08:32 1 PKT Non-Formulary Medication (Budesonide/ Formoterol Fumarate (Symbicort 160-4.5 Mcg Inhaler)) 2 puff BID 08/20/21 21:00 08/20/21 10:16 DC Nystatin (Nystop) 1 godwin BID 08/20/21 13:00 08/25/21 20:04 1 GODWIN Senna/Docusate Sodium (Senna Plus) 2 tab PRN BID PRN 08/20/21 10:00 Triamcinolone Acetonide (Kenalog-40) 40 mg 1X ONCE 08/22/21 13:15 08/22/21 13:26 DC 08/22/21 13:40 40 MG Vitamin D (Vitamin D3) 2,000 unit DAILY 08/20/21 09:00 08/26/21 08:32 2,000 UNIT Results All relevant outside records, renal labs, imaging studies, telemetry/EKG's were reviewed. Justicifation of Admission Dx: Justifications for Admission: Justification of Admission Dx: Yes ELIDA DELCID MD August 26, 2021 09:13
--- NOTE | 2021-08-26 09:35 | PDOC ---
IM PROGRESS NOTES- Subjective Subjective Dyspnea,pain are improving. Objective Vitals/I&O Vital Signs Date Time Temp Pulse Resp B/P (MAP) Pulse Ox O2 Delivery O2 Flow Rate FiO2 08/26/21 07:41 94 Nasal Cannula 5.0 08/26/21 07:00 97.4 87 22 135/60 (85) 97.4 I & O 08/25/21 08/25/21 08/26/21 15:00 23:00 07:00 Intake Total 500 ml 200 ml 100 ml Output Total 300 ml Balance 500 ml 200 ml -200 ml Physical Exam Physical Exam General Appearance - alert and in no distress Chest - decreased breath sounds at bases Heart - S1 and S2 normal Abdomen - soft, non tender Neurological - alert and oriented Musculoskeletal - generalized weakness Extremities - + edema Meds Current Medications Medications (Trade) Dose Ordered Sig/Negro Route PRN Reason Start Time Stop Time Status Last Admin Dose Admin Calcium Carbonate/ Glycine (Tums) 500 mg PRN QID PRN PO INDIGESTION 08/25/21 09:45 08/25/21 09:53 DC 08/25/21 09:52 Furosemide (Lasix) 40 mg BID92 IVP 08/25/21 14:00 08/26/21 08:32 Assessment Assessment 1. Acute on chronic congestive heart failure. 2. Elevated troponin, rule out silent myocardial infarction. 3. Kidney disease, creatinine 2.3. 4. Morbid obesity. 5. Recent left knee replacement. 6. Hypertension. 7. Hyperlipidemia. 8. Hypothyroidism. 9. Acute hypoxic respiratory failure. PLAN: At this time, admit to hospital, was given IV Lasix, subcutaneous heparin 3 times daily for DVT prophylaxis. Cardiology consultation, serial cardiac enzymes and see how the patient's improves in the next 24-48 hours. Acute hypoxic respiratory failure. Likely due to CHF. O2 by n/c. Low grade fever- monitor. CT chest report pending. Consult . Acute on chronic congestive heart failure.Diuretics. Cardiology consult appreciated. CKD- Creat decreased from 2.3 to 1.9. Renal consult. Fever- Labs,consult ID.Etiology not clear. D Dimer 10- Venous doppler lower extremity- no DVT on limited evaluation. Rt knee pain is improving. She had a steroid injection . Awaiting placement. Clinically improving. Discharge management 35 minutes. Plan Plan For more details regarding further plans, please refer to the orders. Justifications for Admission Other Justification ALCIDES SWANSON MD August 26, 2021 09:35
--- NOTE | 2021-08-26 09:58 | PDOC ---
PROGRESS NOTES Date of Service DATE: 08/26/21 TIME: 09:55 Subjective Subjective No new problems. Objective Objective Vital Signs Date Time Temp Pulse Resp B/P (MAP) Pulse Ox O2 Delivery O2 Flow Rate FiO2 08/26/21 07:41 94 Nasal Cannula 5.0 08/26/21 07:00 97.4 87 22 135/60 (85) 97.4 Intake and Output 08/26/21 07:00 Intake Total 800 ml Output Total 300 ml Balance 500 ml Intake Oral 800 ml Output Urine Total 300 ml # Voids 1 Physical Exam Physical Exam She is alert,supine in bed with head end propped up and she is working with therapy progress with mobility is slow secondary to generalized pain and knee joint stiffness. Assessment Assessment Problems Medical Problems: (1) CHF exacerbation Status: Acute Plan Plan of Care Waiting fro insurance approval for continued in patient rehab at [facility] or rehab unit,if no approval to home with home health follow up when medically stable. Comment Review of Relevant I have reviewed the following items swathi (where applicable) has been applied. Labs Laboratory Tests Test 08/24/21 13:27 Sodium Level 136 mmol/L (136-145) Potassium Level 4.0 mmol/L (3.5-5.1) Chloride Level 99 mmol/L (98-107) Carbon Dioxide Level 27 mmol/L (21-32) Anion Gap 10 (6-14) Blood Urea Nitrogen 34 mg/dL (7-20) Creatinine 1.6 mg/dL (0.6-1.0) Estimated GFR (Cockcroft-Gault) 37.9 Glucose Level 149 mg/dL (70-99) Calcium Level 8.7 mg/dL (8.5-10.1) Magnesium Level 2.2 mg/dL (1.8-2.4) Microbiology 08/24/21 Urine Culture - Final, Complete Pseudomonas Aeruginosa Medications Current Medications Acetaminophen/ Hydrocodone Bitart (Lortab 5/325) 1 tab PRN Q6HRS PRN PO MODERATE PAIN Last administered on 08/21/21at 08:31; Start 08/20/21 at 01:00 Acetaminophen (Tylenol) 650 mg PRN Q6HRS PRN PO MILD PAIN / TEMP > 100.3'F Last administered on 08/21/21at 21:11; Start 08/20/21 at 10:00 Aspirin (Aspirin Chewable) 81 mg DAILY PO Last administered on 08/26/21 08:32; Start 08/20/21 at 10:30 Atorvastatin Calcium (Lipitor) 20 mg HS PO Last administered on 08/25/21 20:01; Start 08/20/21 at 21:00 Cetirizine HCl (ZyrTEC) 10 mg DAILY PO Last administered on 08/26/21 08:32; Start 08/21/21 at 09:00 Vitamin D (Vitamin D3) 2,000 unit DAILY PO Last administered on 08/26/21 08:32; Start 08/20/21 at 09:00 Ferrous Sulfate (Feosol) 325 mg DAILY PO Last administered on 08/26/21 08:32; Start 08/21/21 at 09:00 Gabapentin (Neurontin) 300 mg TID PO Last administered on 08/26/21 08:32; Start 08/20/21 at 14:00 Acetaminophen/ Hydrocodone Bitart (Lortab 7.5/325) 1 tab PRN Q6HRS PRN PO SEVERE PAIN Last administered on 08/25/21 16:24; Start 08/20/21 at 10:00 Hydroxychloroquine Sulfate (Plaquenil) 200 mg BID PO Last administered on 08/26/21 08:32; Start 08/20/21 at 10:00 Levothyroxine Sodium (Synthroid) 175 mcg DAILY PO Last administered on 08/22/21 08:02; Start 08/21/21 at 09:00; Stop 08/22/21 at 16:22; Status DC Montelukast Sodium (Singulair) 10 mg DAILY PO Last administered on 08/26/21 08:32; Start 08/20/21 at 10:30 Multivitamins (Thera M Plus) 1 tab DAILY PO Last administered on 08/26/21 08:32; Start 08/20/21 at 10:30 Senna/Docusate Sodium (Senna Plus) 2 tab PRN BID PRN PO CONSTIPATION-1st option; Start 08/20/21 at 10:00 Non-Formulary Medication (Budesonide/ Formoterol Fumarate (Symbicort 160-4.5 Mcg Inhaler)) 2 puff BID IH ; Start 08/20/21 at 21:00; Stop 08/20/21 at 10:16; Status DC Diclofenac Sodium (Voltaren) 1 shaka PRN DAILY PRN TP PAIN; Start 08/20/21 at 10:15 Heparin Sodium (Porcine) (Heparin Sodium) 5,000 unit Q8HRS SQ Last administered on 08/26/21at 06:18; Start 08/20/21 at 10:00 Furosemide (Lasix) 20 mg BID92 IVP Last administered on 08/25/21 08:25; Start 08/20/21 at 14:00; Stop 08/25/21 at 13:56; Status DC Furosemide (Lasix) 40 mg 1X ONCE IVP Last administered on 08/20/21at 10:32; Start 08/20/21 at 10:00; Stop 08/20/21 at 10:16; Status DC Albuterol/ Ipratropium (Duoneb) 3 ml 1X ONCE NEB Last administered on 08/20/21at 11:55; Start 08/20/21 at 10:00; Stop 08/20/21 at 10:16; Status DC Albuterol/ Ipratropium (Duoneb) 3 ml RTQID NEB Last administered on 08/26/21 07:40; Start 08/20/21 at 12:00 Budesonide (Pulmicort) 0.5 mg RTBID NEB Last administered on 08/26/21 07:40; Start 08/20/21 at 20:00 Nystatin (Nystop) 1 shaka BID TP Last administered on 08/26/21at 09:00; Start 08/20/21 at 13:00 Triamcinolone Acetonide (Kenalog-40) 40 mg 1X ONCE INT ART Last administered on 08/22/21 13:40; Start 08/22/21 at 13:15; Stop 08/22/21 at 13:26; Status DC Bupivacaine HCl (Sensorcaine-Mpf 0.25%) 10 ml 1X ONCE IJ Last administered on 08/22/21 13:40; Start 08/22/21 at 13:15; Stop 08/22/21 at 13:26; Status DC Neomycin/ Polymyxin/ Bacitracin (Triple Antibiotic Ointment) 1 pkt BID TP Last administered on 08/26/21 08:32; Start 08/22/21 at 14:00 Magnesium Hydroxide (Milk Of Magnesia) 2,400 mg PRN DAILY PRN PO CONSTIPATION- 2nd option; Start 08/22/21 at 14:00 Bisacodyl (Dulcolax Tab) 10 mg DAILY PO Last administered on 08/26/21at 08:32; Start 08/22/21 at 14:00 Docusate Sodium (Enemeez) 283 mg PRN DAILY PRN NE CONSTIPATION; Start 08/22/21 at 14:00 Levothyroxine Sodium (Synthroid) 175 mcg DAILY06 PO Last administered on 08/26/21at 06:17; Start 08/23/21 at 06:00 Calcium Carbonate/ Glycine (Tums) 500 mg PRN QID PRN PO INDIGESTION Last administered on 08/25/21at 09:52; Start 08/25/21 at 09:45; Stop 08/25/21 at 09:53; Status DC Calcium Carbonate/ Glycine (Tums) 500 mg PRN AFTMEALHC PRN PO INDIGESTION; Start 08/25/21 at 10:00 Furosemide (Lasix) 40 mg BID92 IVP Last administered on 08/26/21at 08:32; Start 08/25/21 at 14:00 Active Scripts Active Furosemide 40 Mg Tablet 40 Mg PO BID 30 Days Nyamyc (Nystatin) 15 Gm Powder 1 Shaka TP BID 14 Days Heparin Sodium (Heparin Sodium,Porcine) 5,000 Unit/1 Ml Vial 5,000 Unit SQ Q8HRS 14 Days Duoneb 0.5-3(2.5) Mg/3 Ml (Albuterol/Ipratropium) 3 Ml Ampul.neb 3 Ml NEB RTQID 30 Days Thera-M Tablet (Multivits,Ca,Minerals/Iron/Fa) 1 Each Tablet 1 Tab PO DAILY 30 Days Stool Soft-Stimulant Lax Tab (Sennosides/Docusate Sodium) 1 Each Tablet 2 Tab PO PRN BID PRN 30 Days Acetaminophen 325 Mg Tablet 650 Mg PO PRN Q6HRS PRN 7 Days Reported Potassium Chloride (Potassium Chloride) 20 Meq Tablet.er 20 Meq PO DAILY Losartan Potassium 50 Mg Tablet 25 Mg PO DAILY Colcrys (Colchicine) 0.6 Mg Tablet 1 Tab PO DAILY 30 Days Clopidogrel (Clopidogrel Bisulfate) 75 Mg Tablet 1 Tab PO DAILY Atenolol 25 Mg Tablet 1 Tab PO DAILY Levothyroxine Sodium 175 Mcg Tablet 1 Tab PO DAILY Aspirin 81 Mg Tab.chew 81 Mg PO DAILY Diclofenac Sodium 100 Gm Gel..gram. 100 Gm TP PRN PRN Hydroxychloroquine Sulfate 200 Mg Tablet 1 Tab PO BID Vitamin D3 (Cholecalciferol (Vitamin D3)) 1,000 Unit Tablet 2,000 Unit PO DAILY Atorvastatin Calcium 20 Mg Tablet 20 Mg PO HS Ferrous Sulfate 325 Mg Tablet 325 Mg PO DAILY Hydrocodone-Apap 7.5-325 (Hydrocodone Bit/Acetaminophen) 1 Each Tablet 1 Tab PO PRN Q6HRS PRN Symbicort 160-4.5 Mcg Inhaler (Budesonide/Formoterol Fumarate) 10.2 Gm Hfa.aer.ad 2 Puff IH BID Singulair Tablet (Montelukast Sodium) 10 Mg Tablet 1 Tab PO DAILY Cetirizine Hcl 10 Mg Tablet 1 Tab PO DAILY Gabapentin (Gabapentin) 300 Mg Capsule 1 Cap PO TID Vitals/I & O Vital Sign - Last 24 Hours 08/25/21 08/25/21 08/25/21 08/25/21 11:36 12:30 15:00 15:23 Temp 98.3 98.1 98.3 98.1 Pulse 85 Resp B/P (MAP) 125/57 (79) 124/61 (82) Pulse Ox 95 99 99 96 O2 Delivery Nasal Cannula Nasal Cannula Nasal Cannula Nasal Cannula O2 Flow Rate 5.0 5.0 5.0 5.0 08/25/21 08/25/21 08/25/21 08/25/21 16:24 16:54 19:36 20:00 Temp 98.1 98.1 Pulse 83 Resp 16 B/P (MAP) 107/56 (73) Pulse Ox 96 96 97 O2 Delivery Nasal Cannula Nasal Cannula Nasal Cannula Nasal Cannula O2 Flow Rate 5.0 5.0 5.0 5.0 08/25/21 08/25/21 08/26/21 08/26/21 20:28 22:41 02:52 07:00 Temp 98.0 98.0 97.4 98.0 98.0 97.4 Pulse 82 78 87 Resp 16 16 22 B/P (MAP) 111/58 (75) 118/63 (81) 135/60 (85) Pulse Ox 99 98 98 90 O2 Delivery Nasal Cannula Nasal Cannula Nasal Cannula Nasal Cannula O2 Flow Rate 5.0 5.0 5.0 5.0 08/26/21 07:41 Pulse Ox 94 O2 Delivery Nasal Cannula O2 Flow Rate 5.0 Intake and Output 08/25/21 08/25/21 08/26/21 15:00 23:00 07:00 Intake Total 500 ml 200 ml 100 ml Output Total 300 ml Balance 500 ml 200 ml -200 ml Justifications for Admission Other Justification BRIDGET CRANDALL MD August 26, 2021 09:58
--- NOTE | 2021-08-26 10:20 | PDOC ---
PULMONARY PROGRESS NOTES DATE: 08/26/21 TIME: 10:18 Subjective Patient continues to be short of breath at times Remains on 5 L. Vitals Vital Signs Date Time Temp Pulse Resp B/P (MAP) Pulse Ox O2 Delivery O2 Flow Rate FiO2 08/26/21 07:41 94 Nasal Cannula 5.0 08/26/21 07:00 97.4 87 22 135/60 (85) 97.4 ROS: No Nausea, No Chest Pain, No Abdominal Pain, No Increase Cough General: Alert HEENT: Other Lungs: Clear Cardiovascular: S1, S2 Abdomen: Soft, Other Neuro Exam: Alert Extremities: Other Skin: Warm (Edema) Labs Laboratory Tests Test 08/24/21 13:27 Sodium Level 136 mmol/L (136-145) Potassium Level 4.0 mmol/L (3.5-5.1) Chloride Level 99 mmol/L (98-107) Carbon Dioxide Level 27 mmol/L (21-32) Anion Gap 10 (6-14) Blood Urea Nitrogen 34 mg/dL (7-20) Creatinine 1.6 mg/dL (0.6-1.0) Estimated GFR (Cockcroft-Gault) 37.9 Glucose Level 149 mg/dL (70-99) Calcium Level 8.7 mg/dL (8.5-10.1) Magnesium Level 2.2 mg/dL (1.8-2.4) Medications Active Scripts Medications Dose Route/Sig Max Daily Dose Days Date Category Furosemide 40 Mg Tablet 40 Mg PO BID 30 08/22/21 Rx Nyamyc (Nystatin) 15 Gm Powder 1 Shaka TP BID 14 08/22/21 Rx Heparin Sodium (Heparin Sodium,Porcine) 5,000 Unit/1 Ml Vial 5,000 Unit SQ Q8HRS 14 08/22/21 Rx Duoneb 0.5-3(2.5) Mg/3 Ml (Albuterol/Ipratropium) 3 Ml Ampul.neb 3 Ml NEB RTQID 30 08/22/21 Rx Potassium Chloride (Potassium Chloride) 20 Meq Tablet.er 20 Meq PO DAILY 08/20/21 Reported Losartan Potassium 50 Mg Tablet 25 Mg PO DAILY 08/20/21 Reported Colcrys (Colchicine) 0.6 Mg Tablet 1 Tab PO DAILY 30 08/20/21 Reported Clopidogrel (Clopidogrel Bisulfate) 75 Mg Tablet 1 Tab PO DAILY 08/20/21 Reported Atenolol 25 Mg Tablet 1 Tab PO DAILY 08/20/21 Reported Thera-M Tablet (Multivits,Ca,Minerals/Iron/Fa) 1 Each Tablet 1 Tab PO DAILY 30 07/29/21 Rx Levothyroxine Sodium 175 Mcg Tablet 1 Tab PO DAILY 07/27/21 Reported Stool Soft-Stimulant Lax Tab (Sennosides/Docusate Sodium) 1 Each Tablet 2 Tab PO PRN BID PRN 30 12/03/20 Rx Acetaminophen 325 Mg Tablet 650 Mg PO PRN Q6HRS PRN 7 12/03/20 Rx Aspirin 81 Mg Tab.chew 81 Mg PO DAILY 11/30/20 Reported Diclofenac Sodium 100 Gm Gel..gram. 100 Gm TP PRN PRN 07/09/20 Reported Hydroxychloroquine Sulfate 200 Mg Tablet 1 Tab PO BID 07/09/20 Reported Vitamin D3 (Cholecalciferol (Vitamin D3)) 1,000 Unit Tablet 2,000 Unit PO DAILY 01/24/18 Reported Atorvastatin Calcium 20 Mg Tablet 20 Mg PO HS 01/24/18 Reported Ferrous Sulfate 325 Mg Tablet 325 Mg PO DAILY 02/09/17 Reported Hydrocodone-Apap 7.5-325 (Hydrocodone Bit/Acetaminophen) 1 Each Tablet 1 Tab PO PRN Q6HRS PRN 02/09/17 Reported Symbicort 160-4.5 Mcg Inhaler (Budesonide/Formoterol Fumarate) 10.2 Gm Hfa.aer.ad 2 Puff IH BID 02/09/17 Reported Singulair Tablet (Montelukast Sodium) 10 Mg Tablet 1 Tab PO DAILY 04/27/14 Reported Cetirizine Hcl 10 Mg Tablet 1 Tab PO DAILY 04/27/14 Reported Gabapentin (Gabapentin) 300 Mg Capsule 1 Cap PO TID 04/27/14 Reported Comments Chest x-ray reviewed 08/25/2021. Mild interstitial infiltrates Impression . IMPRESSION: 1. Acute hypoxic respiratory failure secondary to [id number] systolic congestive heart failure. 2. The patient with known cardiomyopathy with an ejection fraction of 40% based on echo from 02/2021. No significant valvular heart disease. Would recommend repeating an echo. 3. Acute kidney injury. 4. Abnormal D-dimer, which is nonspecific and could be related to congestive heart failure;venous Dopplers of lower extremities to deep venous thrombosis negative for DVT. 5. 50 years of tobaccoism. Suspect underlying chronic obstructive pulmonary disease. Plan . Remains on 5 L. Repeat chest x-ray with mild interstitial infiltrates. We will give an extra dose of Lasix.. Social service working on placement Continue current oxygen supplementation Continue optimizing treatment for heart failure Venous Dopplers negative, limited study, negative for DVT. PFT as an outpatient RADHIKA MARTINEZ MD August 26, 2021 10:19
[2021-08-26] MEDS: HYDROcodone/APAP 7.5/325MG 1 TAB TABLET PO PRN (10:59)
[2021-08-26 11:00] VITALS: BP 134/73
--- NOTE | 2021-08-26 11:23 | NUR ---
SS following up with discharge planning. SS reviewed pt chart and discussed with pt RN. Pt is currently requiring oxygen at five liters nasal canula COVID19 negative. PT/OT recommended retirement unit. Pt accepted at [facility], ; fax [phone], and [facility], ; fax [phone], pending insurance approval. Per facilities auth still pending at this time. Clinical updates sent to facilities. SS will continue to follow for discharge planning.
--- NOTE | 2021-08-26 12:01 | PDOC ---
CARLOLUZBARBARA Parra KNUCKLE BENDER 08/26/21 1201: CARDIO Progress Notes Date and Time Date of Service 08/26/2021 Time of Evaluation 1130 Subjective Subjective: No Chest Pain, No Palpitations, Other (SOA better) Vitals Vitals Vital Signs Date Time Temp Pulse Resp B/P (MAP) Pulse Ox O2 Delivery O2 Flow Rate FiO2 08/26/21 11:30 95 Nasal Cannula 5.0 08/26/21 11:00 97.8 81 22 134/73 (93) 97.8 Weight Weight [ ] Input and Output Intake and Output Intake and Output 08/26/21 07:00 Intake Total 800 ml Output Total 300 ml Balance 500 ml Intake Oral 800 ml Output Urine Total 300 ml # Voids 1 Microbiology Micro Microbiology 08/24/21 Urine Culture - Final, Complete Pseudomonas Aeruginosa Physical Exam HEENT: Neck Supple W Full Motion Chest: Symmetric LUNGS: Other (diminished ) Heart: RRR (SR) Abdomen: Soft N/T Extremities: Other (2+ bilateral LE edema ) Neurology: alert, oriented, follow commands Assessment Assessment 1. NSTEMI; peak 191. most likely type II, demand ischemia 2. Acute on chronic systolic and diastolic heart failure: improved 3. Cardiomyopathy; Echo 03/13 with LVEF 40-45% 4. HERMELINDA on CKD; Cr improved, stable 5. CAD s/p PCI/stent; clinically stable. MPI 08/10 with fixed defect. 6. Hypertension; controlled 7. Dyslipidemia; statin 8. Morbid obesity 9. Hypothyroidism; on replacement Recommendations Lasix therapy HF optimization Secondary prevention. restart home atenolol. Restart home losartan if Cr remains at baseline. Outpatient ischemic evaluation Supportive care Follow up in our office with Dr. Mann has been arranged SNU transfer pending Justicifation of Admission Dx: Justifications for Admission: Justification of Admission Dx: Yes SHASHANK MANN MD 08/26/21 1542: CARDIO Progress Notes Assessment Assessment Patient seen and examined. Agree with JEWELRY FINISHER's assessment and plan. Acute on chronic combined systolic and diastolic heart failure better compensated with diuresis. Non-STEMI most probably type II/demand ischemia. Continue current medical regimen Plan outpatient ischemic evaluation BARBARA CHUN APRN August 26, 2021 12:01 SHASHANK MANN MD August 26, 2021 15:42
[2021-08-26] MEDS ORDERED: ATENOLOL 25 MG TABLET. PO SCH (12:30)
[2021-08-26 15:00] VITALS: BP 129/61
[2021-08-26 15:11] VITALS: BP 134/73
--- NOTE | 2021-08-26 15:22 | NUR ---
SS following up with discharge planning. SS reviewed pt chart and discussed with pt RN. Pt is currently requiring oxygen at five liters nasal canula COVID19 negative. PT/OT recommended intermediate unit. Insurance denied [facility]. Pt accepted at [facility], ; fax [phone], and insurance approved. Discharge orders received and sent to [facility]. Pt will discharge today and go to [facility] at 1600. [facility] [address] to provide transportation. Pt, pt's RN, and pt's family notified.
== END 2021-08-26 16:57 | DRG 280 ==
LOC: ER 16:30 → 6 SOUTH 18:50
PROVIDERS: ADMIT Internal Medicine; ATTEND Internal Medicine
DX: I13.0 Hypertensive heart and chronic kidney disease with heart failure and stage 1 through stage 4 chronic kidney disease, or unspecified chronic kidney disease (principal); I50.43 Acute on chronic combined systolic (congestive) and diastolic (congestive) heart failure; I21.A1 Myocardial infarction type 2; J96.01 Acute respiratory failure with hypoxia; N17.9 Acute kidney failure, unspecified; Z68.42 Body mass index [BMI] 45.0-49.9, adult; D64.9 Anemia, unspecified; E03.9 Hypothyroidism, unspecified; E66.01 Morbid (severe) obesity due to excess calories; E78.5 Hyperlipidemia, unspecified; G62.9 Polyneuropathy, unspecified; I25.10 Atherosclerotic heart disease of native coronary artery without angina pectoris; I25.5 Ischemic cardiomyopathy; J44.9 Chronic obstructive pulmonary disease, unspecified; M17.0 Bilateral primary osteoarthritis of knee; N18.9 Chronic kidney disease, unspecified; R62.7 Adult failure to thrive; Z82.49 Family history of ischemic heart disease and other diseases of the circulatory system; Z83.3 Family history of diabetes mellitus; Z87.440 Personal history of urinary (tract) infections; Z87.891 Personal history of nicotine dependence; Z95.5 Presence of coronary angioplasty implant and graft; Z96.652 Presence of left artificial knee joint; F41.9 Anxiety disorder, unspecified; M10.9 Gout, unspecified
CPT/HCPCS: 36415; 36600; 71045; 71250; 80048; 80053; 80061; 81001; 83605; 83735; 83880; 84443; 84484; 85025; 85379; 87077; 87086; 93005; 93970; 94640; 94760; J1644; J1940; J3301; J3490; U0003; 97110-GO; 97116-GP; 97530-GO; 97530-GP; 97535-GO; G0378; J7626